=== PATIENT | male | born 1965 | race Caucasian/White ===

== ENCOUNTER 2024-11-18 23:44 | Inpatient (IN) | payer MEDICAID, SELFPAY ==
[2024-11-18 23:45] VITALS: BMI 25.1
[2024-11-18 23:57] VITALS: BP 122/81; PULSE 77; RESP 18; TEMP 37.3; O2SAT 99
[2024-11-19] VITALS (9 sets, daily range): BP systolic 114–137; BP diastolic 75–90; PULSE 61–79; RESP 13–19; TEMP 36.4–37.1; O2SAT 94–99
--- NOTE | 2024-11-19 00:08 | PD.EDRME ---
Rapid Medical Screening Exam RME Arrival date/time: 11/18/24 23:44 59M with history of cirrhosis and hypothryoidism presents to ED with gen ab pain and some bloody emesis. Patient states this feels more like a gastritis flare than esophageal bleed/pain. Chief Complaint: Abdominal Pain Time Seen by Provider: 11/19/24 01:17 Vital signs: Vital Signs Temperature 99.1 F 11/18/24 23:57 Pulse Rate 77 11/18/24 23:57 Respiratory Rate 18 11/18/24 23:57 Blood Pressure 122/81 11/18/24 23:57 Pulse Oximetry (%) 99 11/18/24 23:57 Oxygen Delivery Method Room Air 11/18/24 23:57
[2024-11-19 01:22] LABS: Basophils % (Auto) 0 % (0-2.5); Eosinophils # (Auto) 0.1 Thou/mm3 (0.0-0.5); Eosinophils % (Auto) 1 % (0-10); Hematocrit 34.7 % (41.0-53.0); Hemoglobin 11.3 g/dL (13.5-16.0); Immature Granulocytes % (Auto) 0 % (0-0); Immature Granulocytes Auto 0.01 Thou/mm3 (0.00-0.00); Lymphocytes # (Auto) 0.5 Thou/mm3 (1.0-4.8); Lymphocytes % (Auto) 12 % (10-50); Mean Corpuscular HGB Conc 32.6 g/dl (31.0-37.0); Mean Corpuscular Hemoglobin 26.2 pg (25.0-35.0); Mean Corpuscular Volume 81 fL (80-100); Monocytes # (Auto) 0.4 Thou/mm3 (0.0-0.8); Monocytes % (Auto) 8 % (0-12); Neutrophils # (Auto) 3.4 Thou/mm3 (1.8-7.7); Neutrophils % (Auto) 78 % (37-80); Nucleated Red Blood Cell % 0 /100 WBC (0); Platelet Count 85 Thou/mm3 (140-440); RDW Standard Deviation 42.6 fL (35.1-43.9); Red Blood Count 4.31 Miln/mm3 (4.50-5.90); White Blood Count 4.4 Thou/mm3 (3.8-10.6)
[2024-11-19] MEDS: PANTOPRAZOLE INJ 40 MG VIAL 80 MG IVP (01:22)
[2024-11-19] MEDS: MORPHINE SULF INJ 10 MG/ML VIAL 5 MG IVP (01:23)
[2024-11-19] MEDS: ONDANSETRON INJ 2 MG/ML INJ 2 ML 4 MG IV ×3 (01:23→16:27)
[2024-11-19 01:35] LABS: Lactate (Lactic Acid) 1.3 mMol/L (0.4-2.0)
[2024-11-19 01:40] LABS: INR 1.3 (0.9-1.3); Partial Thromboplastin Time 31.3 Seconds (22.0-36.0); Prothrombin Time 13.5 Seconds (9.0-12.2)
[2024-11-19 01:47] LABS: Alanine Aminotransferase < 7 U/L (10-49); Albumin, Serum 4.1 gm/dL (3.4-4.8); Albumin/Globulin Ratio 1.1 (1.2-2.2); Alkaline Phosphatase 80 U/L (46-116); Anion Gap 6 (7-16); Aspartate Amino Transferase 11 U/L (0-34); BUN/Creatinine Ratio 25 Ratio (12-20); Bilirubin,Total 1.7 mg/dL (0.3-1.2); Blood Urea Nitrogen 25 mg/dL (9-23); Calcium 9.2 mg/dL (8.3-10.6); Calcium (Corrected) 9.2 mg/dL (8.5-10.1); Chloride 104 mMol/L (98-107); Estimated Creatinine Clearance 77.6 mL/min (>60); Globulin 3.6 gm/dL (2.3-3.5); Glucose 109 mg/dL (74-106); Lipase 35 U/L (12-53); Osmolality,Calculated 279 (275-295); Potassium 4.2 mMol/L (3.4-5.1); Sodium 137 mMol/L (136-145); Total Protein 7.7 gm/dL (5.7-8.2); eGFR > 60 See Note
--- NOTE | 2024-11-19 04:02 | PC.NURSE ---
Deacon Mullins contacted for prayer visit per family request
--- NOTE | 2024-11-19 05:40 | EDNOTE_ITS ---
ED Abdominal Pain RME/HPI General Chief Complaint: Abdominal Pain Stated complaint: ABDOMINAL PAIN, VOMITED BLOOD Time seen by provider: 11/19/24 01:17 Arrival date/time: 11/18/24 23:44 Limitations: no limitations RME / HPI RME / HPI narrative: 11/18/24 23:44 59M with history of cirrhosis and hypothryoidism presents to ED with gen ab pain and some bloody emesis. Patient states this feels more like a gastritis flare than esophageal bleed/pain. ------- Dr. 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 Patient states he had an episode of vomiting with some blood in it. He denies any dizziness, lightheadedness, rectal bleeding, fever, chills or any other associated symptoms. PMHX: 1. Acute calculus cholecystitis-s/p cholecystostomy tube 2. Choledocholithiasis 3. Intractable Abdominal Pain 4. Cirrhosis 5.Thrombocytopenia/Leukopenia 7. Hypoalbuminemia- Continue high protein diet and Ensure supplements 8. Hypothyroidism -Continue home levothyroxine 9. Hx of Asthma-Continue home albuterol as needed Related Data Home Medications ?Medication ?Instructions ?Recorded ?Confirmed albuterol sulfate 90 mcg/actuation 2 puff inhalation Q6H PRN 09/02/22 09/02/22 aerosol inhaler Shortness Of Breath Or Wheezing gabapentin 400 mg capsule 400 mg PO Q8H 09/02/22 09/02/22 levothyroxine 150 mcg tablet 150 mcg PO QDAY 09/02/22 09/02/22 lidocaine 5 % topical patch See Rx Instructions .Route .COMPLEX 09/02/22 09/02/22 nystatin 100,000 unit/gram topical See Rx Instructions .Route .COMPLEX 09/02/22 09/02/22 cream oxycodone 10 mg tablet 10 mg PO BID PRN Pain 09/02/22 09/02/22 tizanidine 4 mg tablet 4 - 8 mg PO QPM 09/02/22 09/02/22 Previous Rx's ?Medication ?Instructions ?Recorded naloxone 4 mg/actuation nasal 4 mg intranasal Q3M PRN opioid 09/15/22 spray (Narcan) overdose #2 ea clindamycin HCl 300 mg capsule 300 mg PO QID #40 caps 04/18/23 meloxicam 15 mg tablet 15 mg PO QDAY PRN pain (scale 04/24/24 score 4-6) #7 tabs Allergies Allergy/AdvReac Type Severity Reaction Status Date / Time codeine AdvReac Mild NAUSEA/VOMI Verified 04/23/24 12:50 TING Review of Systems Review of Systems Systems Reviewed: All systems reviewed, normal except as documented Past Medical History Past Medical History NEUROLOGIC: Negative Neurological Disorders or Seizures CARDIAC: Negative Cardiac Disorders, Myocardial Infarction, Hypercholesterolemia, Congestive Heart Failure, Hypertension or Hypotension RESPIRATORY: Positive Asthma; Negative Chronic Obstructive Pulmonary Disease (COPD) GASTROINTESTINAL: Positive Cirrhosis GENITOURINARY: Negative Renal Disease ENDOCRINE: Positive Endocrine Disorders and Hypothyroidism; Negative Diabetes Mellitus Type 1 or Diabetes Mellitus Type 2 HEMATOLOGIC: Negative Sickle Cell Disease OTHER HISTORY: Negative Falls, Blood Transfusions, Anesthesia Reactions or Cancer Surgical History SURGICAL: Positive Abdominal Surgery Social History SMOKING STATUS: Current every day smoker SECOND HAND EXPOSURE: No (smoking for couple of years- Quit 5 days ago) ED Exam General Limitations: Present no limitations General appearance: Present alert and other (appears mildly uncomfortable) Head Head exam: Present atraumatic Eye Eye exam: Present normal appearance, PERRL and EOMI ENT ENT exam: Present normal exam, normal oropharynx and mucous membranes dry Neck Neck exam: Present normal inspection, full ROM and trachea midline Chest Chest inspection: Present normal inspection and symmetric chest wall rise Respiratory Respiratory exam: Present normal lung sounds bilaterally Cardiovascular Cardiovascular exam: Present regular rate, normal rhythm and normal heart sounds Abdominal Exam Abdominal exam: Present soft, normal bowel sounds, hernia (right umbilical, reducible) and scar (right abdominal, well-healed, no surrounding erythema or underlying discoloration); Absent tenderness Extremities Exam Extremities exam: Present normal inspection and full ROM Back Exam Back exam: Present normal inspection and full ROM Neurological Exam Neurological exam: Present alert, oriented X3 and CN II-XII intact Psychiatric Psychiatric exam: Present normal affect and normal mood Skin Skin exam: Present warm, dry, intact and normal color; Absent other (jaundice) Course Quality Measures none Orders Category Date Time Status CT Screening NOW Care 11/19/24 06:06 Active Insert IV NOW Care 11/19/24 00:[address] abdomen pelvis w con Stat Exams 11/19/24 06:06 Ordered CBC Stat Lab 11/19/24 00:44 Completed CMP [Comprehensive Metabolic Panel] Stat Lab 11/19/24 00:44 Completed INR [Prothrombin Time with INR] Stat Lab 11/19/24 00:44 Completed Lactic Acid [Lactate (Lactic Acid)] Stat Lab 11/19/24 01:29 Completed Lipase Stat Lab 11/19/24 00:44 Completed PTT [Partial Thromboplastin Time] Stat Lab 11/19/24 00:44 Completed Morphine Inj Med 11/19/24 05:45 Discontinued 4 mg IVP X1 ONE Morphine Inj Med 11/19/24 00:07 Discontinued 5 mg IVP X1 ONE Ondansetron Inj [Zofran Inj] Med 11/19/24 00:07 Discontinued 4 mg IV X1 ONE Pantoprazole Inj [Protonix Inj] Med 11/19/24 00:07 Discontinued 80 mg IVP X1 ONE Vital Signs Vital signs: Vital Signs Temperature 99.1 F 11/18/24 23:57 Pulse Rate 77 11/18/24 23:57 Respiratory Rate 18 11/18/24 23:57 Blood Pressure 122/81 11/18/24 23:57 Pulse Oximetry (%) 99 11/18/24 23:57 Oxygen Delivery Method Room Air 11/18/24 23:57 Pulse ox is 99% on room air, which is normal according to my interpretation. Abdominal Pain MDM MDM Narrative MDM Narrative:: Lipase, Amylase, and CT added. Patient data External records reviewed:: [facility] previous records (Per chart review, patient was seen here on 09/23/24 for similar symptoms and had gallstones; ERCP was not performed due to the high cervical risk.) Clinical information provided by:: patient Social determinants that could affect healthcare access:: alcohol use (history of) Patient has the following chronic illnesses:: cirrhosis s/p TIPS procedure, hypothyroidism, asthma, chronic back pain How is presenting disease/condition affected by chronic disease/condition?: exacerbated by Evaluation data The following diagnostics were reviewed and interpreted by me:: lab results Lab and/or radiology exams considered but not ordered:: none Interpretation Summary: CBC is normal, Lactic Acid is normal, Total Bilirubin is elevated at 1.7, Lipase is normal, according to my interpretation. Medications / Prescriptions Medications or Prescriptions considered but not ordered:: none Medication administrations:: Medication Administration History Discontinued Medications Morphine Sulfate (Morphine Sulf Inj 10 Mg/Ml Vial) 5 mg IVP X1 ONE Stop: 11/19/24 00:08 Last Admin: 11/19/24 01:23 Dose: 5 mg Documented By: LANI Morphine Sulfate (Morphine Sulf Inj 10 Mg/Ml Vial) 4 mg IVP X1 ONE Stop: 11/19/24 05:46 Last Admin: 11/19/24 06:01 Dose: 4 mg Documented By: LANI Ondansetron HCl (Ondansetron Inj 2 Mg/Ml Inj 2 Ml) 4 mg IV X1 ONE; Protocol Stop: 11/19/24 00:08 Last Admin: 11/19/24 01:23 Dose: 4 mg Documented By: LANI Pantoprazole Sodium (Pantoprazole Inj 40 Mg Vial) 80 mg IVP X1 ONE Stop: 11/19/24 00:08 Last Admin: 11/19/24 01:22 Dose: 80 mg Documented By: LANI see below Consultations Consultation(s) initiated? (list below): No Diagnosis Differential diagnosis abdominal pain: pancreatitis and other (surgical adhesions, worsening cirrhosis, acute on chronic low back pain, NSTEMI, CBD stone) Most likely diagnosis given after review of the tests above:: final dx pending at signout. Admission Indicated Admission indicated?: not indicated Admission Request Was there a request for admission?: No Disposition Plan Disposition Plan: other (specify) (Signed out to the next oncoming provider at [address] Discharge Plan Plan Disposition Comment: stale at signout Prescriptions/Referrals Prescriptions/Med Rec: No Action tizanidine 4 mg tablet 4 - 8 mg PO QPM Patient Comments: TAKE 1 TO 2 TABLETS BY MOUTH EVERY EVENING AT BED TIME gabapentin 400 mg capsule 400 mg PO Q8H Patient Comments: TAKE ONE CAPSULE BY MOUTH EVERY 8 HOURS nystatin 100,000 unit/gram cream See Rx Instructions .ROUTE .COMPLEX Patient Comments: APPLY topically THREE TIMES DAILY Rx Instructions: APPLY TOPICALLY THREE TIMES A DAY lidocaine 5 % adhesive patch,medicated See Rx Instructions .ROUTE .COMPLEX Patient Comments: APPLY ONE PATCH FOR 12 hours AND 12 hours off Rx Instructions: APPLY 1 PATCH FOR 12 HOURS AND 12 HOURS OFF levothyroxine 150 mcg tablet 150 mcg PO QDAY Patient Comments: TAKE ONE TABLET BY MOUTH EVERY DAY IN THE MORNING FOR THYROID albuterol sulfate 90 mcg/actuation HFA aerosol inhaler 2 puff INHALATION Q6H PRN (Reason: Shortness Of Breath Or Wheezing) Patient Comments: INHALE TWO PUFFS BY MOUTH EVERY 6 HOURS NEEDED oxycodone 10 mg tablet 10 mg PO BID PRN (Reason: Pain) Patient Comments: TAKE ONE TABLET BY MOUTH TWICE DAILY NEEDED FOR PAIN naloxone [Narcan] 4 mg/actuation spray,non-aerosol 4 mg intranasal Q3M PRN (Reason: opioid overdose) Qty: 2 0RF Rx Instructions: spray 1 dose into ONE nostril; alternate nostrils w each dose clindamycin HCl 300 mg capsule 300 mg PO QID Qty: 40 0RF meloxicam 15 mg tablet 15 mg PO QDAY PRN (Reason: pain (scale score 4-6)) Qty: 7 0RF Referrals: Justin Martin MD [Primary Care Provider] - In 1 week Problem List Clinical Impression: Abdominal pain Patient/Caregiver Discharge Instructions Print Language: Mosotho
[2024-11-19] MEDS: MORPHINE SULF INJ 10 MG/ML VIAL 4 MG IVP ×4 (06:01→20:37)
--- NOTE | 2024-11-19 06:06 | XR_ITS ---
Examination: CT abdomen with intravenous contrast CT pelvis with intravenous contrast 2-D coronal reconstructions 2-D sagittal reconstructions Date and time of exam:November 19, 2024 0645 hrs. Comparison September 02, 2022 Indications: Diagnosis cirrhosis with vomiting abdominal pain beginning last night, history gallbladder disease. CTDI: vol (mGy) 7.69 DLP: (mGycm) 126 Technique: Multiple axial sections of the abdomen and pelvis have been obtained. 64 slice high-resolution scanner used. 3 mm axial sections have been obtained, post intravenous injection 60 cc [id number] 2-D sagittal, coronal reconstructions obtained. Low dose protocols were performed. One or more of the following dose reduction techniques were used; automated exposure control, adjustment of the mA and/or KV according to patient size, use of iterative reconstruction technique. Findings: Cirrhosis, no focal liver lesions Portacaval shunt Marked splenomegaly with portosystemic collateral vessels medial to the spleen marked mucosal thickening involving the stomach and duodenum with air droplet axial image 61 which may represent a penetrating ulcer No pancreatic edema No hydronephrosis Aorta normal size No bowel obstruction Bladder intact Mild prostatomegaly Moderate osteopenia Impression: Cirrhosis Marked splenomegaly Diffuse gastritis pattern Severe active peptic disease of the duodenum with probable duodenal penetrating ulcer in no
--- NOTE | 2024-11-19 06:42 | PC.NURSE ---
PATIENT TO CT
--- NOTE | 2024-11-19 11:44 | EDNOTE_ITS ---
Emergency Room Addendum Addendum Narrative: The patient was signed out to me from Dr. Lee at 6:[address] abdomen and pelvic. Please see her note. The patient is tender in the right upper quadrant and vaguely tender throughout his abdomen. He does have a nonincarcerated soft incisional hernia in the right upper quadrant. CBC showing a WBC count of 4.4 but he has had history of leukopenia. BUN of 25 may be consistent with dehydration. Lactic acid is negative. Total bilirubin of 1.7 not too far away from the previous total bilirubin on record. Pro time 13.5 may be consistent with liver cirrhosis. Lactic acid is negative. On further questioning the patient admits to having vomited some black and red this morning. [facility] [address] [place] [address] [place] [facility] Report Signed Patient: ARBEN SMITH Record#: [id number] Birthdate: 1965 Age/Sex: 59 / M Location: [facility] Attending Dr: Ordering Physician: Cassandra Lee MD Date of Service: 11/19/24 Procedure(s): CT abdomen pelvis w con Accession Number(s): [id number] cc: Justin Martin MD; Arturo Shoemaker MD; Cassandra Lee MD~ Examination: CT abdomen with intravenous contrast CT pelvis with intravenous contrast 2-D coronal reconstructions 2-D sagittal reconstructions Date and time of exam:November 19, 2024 0645 hrs. Comparison September 02, 2022 Indications: Diagnosis cirrhosis with vomiting abdominal pain beginning last night, history gallbladder disease. CTDI: vol (mGy) 7.69 DLP: (mGycm) 126 Technique: Multiple axial sections of the abdomen and pelvis have been obtained. 64 slice high-resolution scanner used. 3 mm axial sections have been obtained, post intravenous injection 60 cc [id number] 2-D sagittal, coronal reconstructions obtained. Low dose protocols were performed. One or more of the following dose reduction techniques were used; automated exposure control, adjustment of the mA and/or KV according to patient size, use of iterative reconstruction technique. Findings: Cirrhosis, no focal liver lesions Portacaval shunt Marked splenomegaly with portosystemic collateral vessels medial to the spleen marked mucosal thickening involving the stomach and duodenum with air droplet axial image 61 which may represent a penetrating ulcer No pancreatic edema No hydronephrosis Aorta normal size No bowel obstruction Bladder intact Mild prostatomegaly Moderate osteopenia Impression: Cirrhosis Marked splenomegaly Diffuse gastritis pattern Severe active peptic disease of the duodenum with probable duodenal penetrating ulcer in no Dictated By: Arturo Shoemaker MD Signed By: <Electronically signed by Arturo Shoemaker MD in [place]> 11/19/24720 DD/ 5 TD/TT: 11/19/24715 [employer] 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 on IV fluid and I also gave the patient an injection of Zosyn IV. Also Protonix IV. For the pain he received morphine and Zofran. I have not seen him vomited here. 11:35 AM, after the CT report made available to me, I spoke to and discussed with Dr. Kamara, surgeon on-call. He said he would come to see the patient evaluate the patient in the emergency department. 12:15 PM, Dr. Kamara was here and has seen the patient. He said that there is no surgery planned. He does recommend patient to be admitted and he recommend an in-house Gastrografin upper GI series 12:45 PM, I spoke to and discussed with , resident of Dr. [facility]. He will present the case to Dr. Patricio and get the patient admitted Diagnosis: Diffuse gastritis Dehydration Cirrhosis of the liver Hematemesis Critical care time is approximately 35 minutes excluding any procedure. The high probability of sudden, clinically significant deterioration in the patient?s condition required the highest level of my preparedness to intervene urgently. The services I provided to this patient were to treat and/or prevent clinically significant deterioration. Services included the following: chart data review, reviewing nursing notes and/or old charts, documentation time, furniture sales consultant collaboration regarding findings and treatment options, medication orders and management, direct patient care, vital sign assessments and ordering, int erpreting and reviewing diagnostic studies and lab tests. Aggregate critical care time includes only time during which I was engaged in work directly related to the patient?s care, as described above, whether at bedside or elsewhere in the Emergency Department. It did not include time spent performing other reported procedures or the services of residents, students, nurses or physician assistants. Diagnosis: Abdominal pain Hematemesis Diffuse gastritis rule out penetrating ulcer Cirrhosis of the liver Condition: Stable for admit
[2024-11-19] MEDS: SODIUM CHLORIDE 0.9% 1000 ML 1,000 ML 125 ML IV (12:14)
[2024-11-19] MEDS: PIPER/TAZO 3.375 GM 3.375 GM/50 ML BAG IV ×2 (12:19→21:05)
[2024-11-19] MEDS: PANTOPRAZOLE INJ 40 MG VIAL IVP ×2 (12:19→20:20)
--- NOTE | 2024-11-19 12:43 | PD.SURCONS ---
HPI Consult details Consult date: 11/19/24 Reason for consultation narrative: Patient was seen on consultation at the request of ER physician for a possible peptic ulcer with air bubbles in the duodenal region History of present illness: Patient gives history of abdominal pain for 2 to 3 weeks in the epigastric region but it became worse last night. He came to the emergency room and was found to have abnormal CT. He also had a vomiting and there was some blood. He underwent cholecystectomy 8 months ago in [place] but has developed an incisional hernia over the abdomen. He is being followed by [place] [facility] over the phone. He has a documented cirrhosis of the liver with mild ascites and hypersplenism. I have seen this patient 2 years ago when he was here with cholecystitis and cholelithiasis. Patient also has had a TIPS because of the portal hypertension. He was once candidate for liver transplant but not anymore according to the patient. Patient has noticed some blood in the vomiting. He was diagnosed with gastric or duodenal ulcer in [place] according to the patient. Past Medical History Past Medical History NEUROLOGIC: Negative Neurological Disorders or Seizures CARDIAC: Negative Cardiac Disorders, Myocardial Infarction, Hypercholesterolemia, Congestive Heart Failure, Hypertension or Hypotension RESPIRATORY: Negative Chronic Obstructive Pulmonary Disease (COPD) or Asthma GASTROINTESTINAL: Positive Cirrhosis GENITOURINARY: Negative Renal Disease ENDOCRINE: Positive Endocrine Disorders and Hypothyroidism; Negative Diabetes Mellitus Type 1 or Diabetes Mellitus Type 2 HEMATOLOGIC: Negative Sickle Cell Disease OTHER HISTORY: Negative Falls, Blood Transfusions, Anesthesia Reactions or Cancer Surgical History SURGICAL: Positive Abdominal Surgery Social History SMOKING STATUS: Current every day smoker SECOND HAND EXPOSURE: No (smoking for couple of years- Quit 5 days ago) Meds Home Medications and Allergies Home Medications ?Medication ?Instructions ?Recorded ?Confirmed ?Type albuterol sulfate 90 mcg/actuation 2 puff inhalation Q6H PRN 09/02/22 09/02/22 History aerosol inhaler Shortness Of Breath Or Wheezing gabapentin 400 mg capsule 400 mg PO Q8H 09/02/22 09/02/22 History levothyroxine 150 mcg tablet 150 mcg PO QDAY 09/02/22 09/02/22 History lidocaine 5 % topical patch See Rx Instructions .Route .COMPLEX 09/02/22 09/02/22 History nystatin 100,000 unit/gram topical See Rx Instructions .Route .COMPLEX 09/02/22 09/02/22 History cream oxycodone 10 mg tablet 10 mg PO BID PRN Pain 09/02/22 09/02/22 History tizanidine 4 mg tablet 4 - 8 mg PO QPM 09/02/22 09/02/22 History Allergies Allergy/AdvReac Type Severity Reaction Status Date / Time codeine AdvReac Mild NAUSEA/VOMI Verified 04/23/24 12:50 TING Exam Vital Signs Temp Pulse Resp BP Pulse Ox O2 Del Method 98.2 F 67 16 137/87 H 95 Room Air 11/19/24 12:16 11/19/24 12:16 11/19/24 12:16 11/19/24 12:16 11/19/24 12:16 11/19/24 12:16 Narrative Exam Physical examination revealed a 59-year-old male who is chronically ill with normal vital signs Routine Abdominal Exam Comments: Abdominal examination showed some tenderness in the epigastric region but no signs of peritonitis. There is no rigidity or guarding to suggest perforation. Bowel sounds are present and hypoactive. Patient has a subcostal incision with the hernia over the upper portion which is reducible. This hernia is not causing any pain or discomfort. Results Results: Laboratory Laboratory Narrative: Patient's laboratory workup showed leukocyte around 4.4 thousand. His platelets are around 85,000 which is higher for him than normal Results: Imaging Imaging narrative: CT scan of the abdomen showed no free air but some stranding around the duodenum and possible gastritis Assessment & Plan Additional Assessment Additional comments: Impression: No evidence of acute peritonitis to suspect any perforation Cirrhosis of the liver with status post TIPS Plan Plan: I will order an upper GI with Gastrografin today. If it is normal we will ask the gaming associate to see whether he would benefit from endoscopy because of the recent upper GI bleeding.
--- NOTE | 2024-11-19 13:17 | PD.IMCONS ---
HPI Data of Consult Primary Care Provider: Justin Martin MD Consult Narrative Reason for consult: Pain abdomen History of present illness: 59 years old male who presented to the hospital with pain abdomen Does have history of cirrhotic liver disease He did have a CT scan of the abdomen pelvis done with contrast showed severe gastritis and duodenitis Micro droplets of air in the duodenum suggestive of a penetrating ulcer Abdominal examination suggestive of benign abdomen with no evidence of acute abdomen cc:: cc: Review of Systems Review of Systems Systems Reviewed: All systems reviewed, normal except as documented Past Medical History Surgical History OTHER SURGICAL HX: As in the history of present illness Meds Home Medications and Allergies Home Medications ?Medication ?Instructions ?Recorded ?Confirmed ?Type albuterol sulfate 90 mcg/actuation 2 puff inhalation Q6H PRN 09/02/22 09/02/22 History aerosol inhaler Shortness Of Breath Or Wheezing gabapentin 400 mg capsule 400 mg PO Q8H 09/02/22 09/02/22 History levothyroxine 150 mcg tablet 150 mcg PO QDAY 09/02/22 09/02/22 History lidocaine 5 % topical patch See Rx Instructions .Route .COMPLEX 09/02/22 09/02/22 History nystatin 100,000 unit/gram topical See Rx Instructions .Route .COMPLEX 09/02/22 09/02/22 History cream oxycodone 10 mg tablet 10 mg PO BID PRN Pain 09/02/22 09/02/22 History tizanidine 4 mg tablet 4 - 8 mg PO QPM 09/02/22 09/02/22 History Allergies Allergy/AdvReac Type Severity Reaction Status Date / Time codeine AdvReac Mild NAUSEA/VOMI Verified 04/23/24 12:50 TING Exam Vital Signs Temp Pulse Resp BP Pulse Ox O2 Del Method 98.2 F 67 16 137/87 H 95 Room Air 11/19/24 12:16 11/19/24 12:16 11/19/24 12:16 11/19/24 12:16 11/19/24 12:16 11/19/24 12:16 Constitutional Comments: Alert oriented cooperative Routine Respiratory Exam Comments: Normal to auscultation Routine Abdominal Exam Comments: Ventral hernia right upper quadrant Results Labs 11/19/24 00:44 11/19/24 00:44 Labs: Short CBC 11/19/24 Range/Units 00:44 WBC 4.4 (3.8-10.6) Thou/mm3 Hgb 11.3 L (13.5-16.0) g/dL Hct 34.7 L (41.0-53.0) % Plt Count 85 L (140-440) Thou/mm3 BMP 11/19/24 00:44 Sodium 137 Potassium 4.2 Chloride 104 Carbon Dioxide 27.0 BUN 25 H Creatinine 1.0 Glucose 109 H Calcium 9.2 Liver Function 11/19/24 Range/Units 00:44 Total Bilirubin 1.7 H (0.3-1.2) mg/dL AST 11 (0-34) U/L ALT < 7 L (10-49) U/L Alkaline Phosphatase 80 (46-116) U/L Albumin 4.1 (3.4-4.8) gm/dL Assessment and Plan Additional Assessment & Plan Additional Plan: # Most likely penetrating ulcer duodenum with possibly sealed off microperforation But no evidence of acute abdomen on examination # 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 IV Protonix Serial CBC If the Gastrografin upper GI series is negative and shows no microperforation will perform upper endoscopy for further evaluation Thank you once . For the opportunity to participate in the care of this patient
--- NOTE | 2024-11-19 14:22 | PD.RESHP ---
Documentation for date of: 11/19/24 [facility] History of Present Illness History of present illness: 59 y/o male with PMHx of cirrhosis (status post TIPS with stent placement 20 years ago at [facility]), chronic hep C, hypothyroidism, peptic ulcer disease, who comes to [facility] on 11/18/2024 for an evaluation of diffuse abdominal pain, onset yesterday, rated 10 out of 10, not relieved by anything, never experienced this before, associated with 1 episode of hematemesis described as bright red in color. Patient reports that he started to feel increasing abdominal pain that has not improved upon sitting in different positions. Denies any changes to his diet usually eats soup and sandwiches, denies being sick recently or any recent travel. Says that he had his gallbladder removed about 8 months ago at [facility] and also had a drain during the time. Denies any CP, SOB, diarrhea, constipation, headache, numbness, tingling, syncope, fatigue, weakness ED Course: Pt presented to the ED afebrile, HR of 77, RR of 18, a blood pressure 122/81, satting at 99% room air. He was worked up and was found to have a sodium 137, potassium 4.2, 104 for chloride, BUN/creatinine of 25.1 respectively, glucose of 109, WBC of 4.4, hemoglobin 11.3, platelets of 85, PT and INR of 13.5 and 1.3 respectively, T. bili 5.7, lipase 35, AST and ALT 11 and 7 respectively, lactate 1.3 and troponin negative x1. CT abdomen pelvis shows active peptic ulcer disease of the duodenum with probable duodenal penetrating ulcer. Patient was given 120 mg of Protonix in the ER, Zofran, Zosyn x 1, 30 mg of morphine, and was started on normal saline 125 cc an hour. General surgery was consulted, with recommendations to pursue upper GI series as he believes the patient does not need surgery at this time. Medicine was consulted and patient to the floors PMHx: As above Surgeries: TIPS 20 years ago, cholecystectomy 8 months ago. All surgeries done at [facility] Meds: Trazodone 50, pantoprazole delayed release, Synthroid 175, oxycodone Allergies: No known allergies Family history: History of heart disease in father Social history: Lives in [place], single lives in a trailer, has 3 kids, has never drank before, had done some recreational marijuana when he was younger but no hard drugs, smokes a pack of cigarettes every 3 days Review of Systems Review of Systems Narrative Review of Systems: Constitutional: No fever, chills, fatigue, weakness, weight loss HEENT: No eye pain, vision loss, ear pain, hearing loss, dysphagia, Cardiovascular: No chest pain, palpitations, edema, pain with walking Respiratory: No cough, shortness of breath, wheezing GI: +hematemesis, + abd pain, no diarrhea, constipation, blood in stool, loss of appetite, heartburn Extremities: No presence of pitting edema MSK: No back pain, joint pain, joint swelling Neuro: No dizziness, numbness, weakness, headaches, seizures, tremors Psych: No anxiety, depression Exam Vital Signs Temp Pulse Resp BP Pulse Ox O2 Del Method 98.2 F 67 16 137/87 H 95 Room Air 11/19/24 12:16 11/19/24 12:16 11/19/24 12:16 11/19/24 12:16 11/19/24 12:16 11/19/24 12:16 Narrative Exam General: AAOx3, in mild distress, older male with some tattoos and wearing a hat HEENT: Dry mucous membranes, conjunctiva clear, EOMI, PERRLA, Cardiovascular: S1, S2, radial pulses +2 bilat, RRR Pulmonary: CTAB bilat no cough, no wheezing GI: Abdomen tender to palpitation in both upper and lower quadrants bilat, no rebound tenderness, no guarding, bowel sounds present, incisional reducible hernia present in RUQ Extremities: No presence of trace or pitting edema in lower extremities bilaterally, dorsalis pedis pulses +2 bilaterally Neuro: AAOx3, no focal motor or sensory deficits in the UE or LE bilat Psych: Good judgement, thought and behavior. Cooperative Results: Labs 11/20/24 04:28 11/20/24 04:28 Labs: Short CBC 11/19/24 Range/Units 00:44 WBC 4.4 (3.8-10.6) Thou/mm3 Hgb 11.3 L (13.5-16.0) g/dL Hct 34.7 L (41.0-53.0) % Plt Count 85 L (140-440) Thou/mm3 BMP 11/19/24 00:44 Sodium 137 Potassium 4.2 Chloride 104 Carbon Dioxide 27.0 BUN 25 H Creatinine 1.0 Glucose 109 H Calcium 9.2 Liver Function 11/19/24 Range/Units 00:44 Total Bilirubin 1.7 H (0.3-1.2) mg/dL AST 11 (0-34) U/L ALT < 7 L (10-49) U/L Alkaline Phosphatase 80 (46-116) U/L Albumin 4.1 (3.4-4.8) gm/dL Quality Measures Quality Measures none Medications Home Medications and Allergies Home Medications ?Medication ?Instructions ?Recorded ?Confirmed ?Type albuterol sulfate 90 mcg/actuation 2 puff inhalation Q6H PRN 09/02/22 09/02/22 History aerosol inhaler Shortness Of Breath Or Wheezing gabapentin 400 mg capsule 400 mg PO Q8H 09/02/22 09/02/22 History levothyroxine 150 mcg tablet 150 mcg PO QDAY 09/02/22 09/02/22 History lidocaine 5 % topical patch See Rx Instructions .Route .COMPLEX 09/02/22 09/02/22 History nystatin 100,000 unit/gram topical See Rx Instructions .Route .COMPLEX 09/02/22 09/02/22 History cream oxycodone 10 mg tablet 10 mg PO BID PRN Pain 09/02/22 09/02/22 History tizanidine 4 mg tablet 4 - 8 mg PO QPM 09/02/22 09/02/22 History Allergies Allergy/AdvReac Type Severity Reaction Status Date / Time codeine AdvReac Mild NAUSEA/VOMI Verified 04/23/24 12:50 TING Visit Medications Acetaminophen (Acetaminophen 325 Mg Tablet) 650 mg PO Q6H PRN PRN Reason: Fever >101.5 or pain 1-3 Stop: 12/19/24 14:11 Albuterol/Ipratropium (Albuterol/Ipratropium (Duoneb) Rt Renetta 3 Ml Nebu) 3 ml INH Q6HRRT RUDDY Stop: 12/19/24 18:59 Sodium Chloride (Ns) 1,000 mls @ 125 mls/hr IV .Q8H ONE Stop: 11/19/24 19:39 Last Admin: 11/19/24 12:14 Dose: 125 mls/hr Piperacillin/Tazobactam/Dextrose (Zosyn) 3.375 gm in 50 mls @ 100 mls/hr IV Q8HR RUDDY Stop: 11/26/24 14:20 Levothyroxine Sodium (Levothyroxine Sodium 125 Mcg Tablet) 175 mcg PO QDAY RUDDY Stop: 12/20/24 08:59 Magnesium Hydroxide (Milk Of Magnesia Susp 30 Ml Udc) 30 ml PO QDAY PRN; Protocol PRN Reason: CONSTIPATION Stop: 12/19/24 14:11 Morphine Sulfate (Morphine Sulf Inj 10 Mg/Ml Vial) 4 mg IVP Q4H PRN PRN Reason: Pain Scale 6-10 (Severe Stop: 11/24/24 14:11 Morphine Sulfate (Morphine Sulf Inj 10 Mg/Ml Vial) 4 mg IVP Q6H PRN PRN Reason: For breakthrough pain Stop: 11/24/24 14:16 Ondansetron HCl (Ondansetron Inj 2 Mg/Ml Inj 2 Ml) 4 mg IV Q6H PRN; Protocol PRN Reason: NAUSEA OR VOMITING Stop: 12/19/24 14:16 Pantoprazole Sodium (Pantoprazole Inj 40 Mg Vial) 40 mg IVP Q12HR RUDDY Stop: 12/19/24 20:59 Trazodone HCl (Trazodone Hcl 50 Mg Tablet) 50 mg PO HS RUDDY Stop: 12/19/24 20:59 Discontinued Medications Piperacillin/Tazobactam/Dextrose (Zosyn) 3.375 gm in 50 mls @ 100 mls/hr IV X1 ONE Stop: 11/19/24 12:10 Last Infusion: 11/19/24 14:04 Dose: Infused Morphine Sulfate (Morphine Sulf Inj 10 Mg/Ml Vial) 5 mg IVP X1 ONE Stop: 11/19/24 00:08 Last Admin: 11/19/24 01:23 Dose: 5 mg Morphine Sulfate (Morphine Sulf Inj 10 Mg/Ml Vial) 4 mg IVP X1 ONE Stop: 11/19/24 05:46 Last Admin: 11/19/24 06:01 Dose: 4 mg Morphine Sulfate (Morphine Sulf Inj 10 Mg/Ml Vial) 4 mg IVP X1 ONE Stop: 11/19/24 12:02 Last Admin: 11/19/24 12:14 Dose: 4 mg Ondansetron HCl (Ondansetron Inj 2 Mg/Ml Inj 2 Ml) 4 mg IV X1 ONE; Protocol Stop: 11/19/24 00:08 Last Admin: 11/19/24 01:23 Dose: 4 mg Ondansetron HCl (Ondansetron Inj 2 Mg/Ml Inj 2 Ml) 4 mg IV X1 ONE; Protocol Stop: 11/19/24 12:02 Last Admin: 11/19/24 12:15 Dose: 4 mg Pantoprazole Sodium (Pantoprazole Inj 40 Mg Vial) 80 mg IVP X1 ONE Stop: 11/19/24 00:08 Last Admin: 11/19/24 01:22 Dose: 80 mg Pantoprazole Sodium (Pantoprazole Inj 40 Mg Vial) 40 mg IVP X1 ONE Stop: 11/19/24 11:41 Last Admin: 11/19/24 12:19 Dose: 40 mg Assessment & Plan Plan Assessment Lucian is a 59 y/o male 59 y/o male with PMHx of cirrhosis (status post TIPS with stent placement 20 years ago at [facility]), chronic hep C, hypothyroidism, peptic ulcer disease, who comes to [facility] on 11/18/2024 for an evaluation of duodenal ulcer and GI bleed. #Penetrating duodenal ulcer #History of peptic ulcer disease Patient exhibiting pain with abdomen at this time, relieved with Protonix At this time, lower suspicion for acute abdomen Patient does have history of peptic ulcer disease, takes pantoprazole delayed release 40 at home Patient does avoid NSAIDs at home No previous EGD on file CT shows peptic ulcer disease and penetrating duodenal ulcer General Surgery, Dr. Fraser seen patient who wants to proceed with upper GI series Low suspicion for perforation at this time, but patient may need to be transferred to [facility] considering patient's GI history with TIPS if there is perforation GI also consulted, would like to further workup patient and would like to start with upper GI series to see patient will need Plan: ?General Surgery consulted, appreciate recs ? GI consulted, appreciate recs ? Pain control with morphine 4 mg every 4 hours, breakthrough pain morphine 4 mg every 6 hours ?N.p.o. ?Upper GI series ? Protonix 40 twice daily ? Normal saline 125 cc/hour #GI bleed #Hematemesis Patient had 1 episode of vomiting blood, described as bright red in color Not happened to patient before This could be related to patient's duodenal ulcer Patient does have history of TIPS Hemoglobin currently 11.3, baseline seems to be around 10 Will further workup regardless, however will need to first complete GI series for further investigation Plan: ?GI consulted, appreciate recs ?Continue with Zosyn ?Type and screen ?Transfusion protocol hemoglobin below 7 ?SCDs ?As above #History of cirrhosis #History of TIPS procedure #Hx of incisional hernia #History of hep C #Elevated PT #Thrombocytopenia #Neutropenia At this time, patient does not seem to be in decompensated liver disease However patient lab abnormalities are all likely secondary to cirrhosis No history of alcohol use per patient, however patient does have hep C could be the etiology of cirrhosis No known history of esophageal varices, will hold on octreotide at this time Plan: ? Treat as above ? Trend with CBC and CMP #History of hypothyroidism Plan: ? Resume home Synthroid 175 mcg #History of insomnia Plan: ? Resume home trazodone 50 mg #Health Maintenance Disposition: Telemetry DVT prophylaxis: SCDs GI prophylaxis: Protonix 40 twice daily Diet: N.p.o. CODE STATUS: Full Patient seen and care discussed with my senior resident, Dr. Rios , and my attending physician, Dr. Jay Eugene, PGY-1 Senior resident attestation: Patient evaluated and examined at the bedside, plan of care discussed with rest of the team including my attending physician, except as noted. Patient is a 59-year-old male with past medical history of cirrhosis status post TIPSS, hepatitis C?received treatment, hypothyroidism, peptic ulcer disease, history of cholecystectomy who came to [facility] for epigastric pain starting 1 day prior. Patient has history of chronic peptic ulcer disease and has epigastric pain also has ventral hernia, which is easily reducible. Patient had prior surgeries done at [facility]. #Penetrating duodenal ulcer ?CT abdomen pelvis read as penetrating duodenal ulcer, but no clear documentation of perforation, reviewed CT imaging, negative for pneumoperitoneum, general surgery Dr. Fraser was consulted, less impressed with physical exam findings, does not consider acute surgical abdomen or need for emergency surgery at this point. Recommending following up with upper GI Gastrografin study. ? Started IV Zosyn ? IV Protonix twice daily following loading dose ? Keep n.p.o., maintenance IV fluid #GI bleed/hematemesis ? Described 1 episode of hematemesis, less likely variceal bleed at this point, given patient has history of TIPS, but there is evidence of portal hypertension given splenomegaly even in the presence of TIPS. For now likely culprit for GI bleed is penetrating duodenal ulcer, will hold off on octreotide, pending GI recommendations. ? Monitor H&H, vitals, transfuse if hemoglobin less than 7 #Thrombocytopenia?in the setting of cirrhosis #Anemia?in the setting of GI bleed/cirrhosis Quresh PGY2 Attending Provider Attestation/Addendum I have examined the patient, reviewed labs and imaging findings, discussed the case with the resident(s), and reviewed entered orders. I agree with the plan of care as outlined in this note, with these additional summaries/recommendations: Patient is a 57-year-old male with past history of cirrhosis s/p TIPS procedure, Hepatitis C infection S/P antivirals many years ago, hypothyroidism, asthma, cholecystectomy, and cirrhosis who presented to [facility] emergency department on 11/19/2024 with complaint of severe abdominal pain and 1 episode of hematemesis. Patient will be admitted for upper GI bleed. Gastroenterology consulted. Start IV Protonix, octreotide gtt., n.p.o., IV fluids, and monitor hemoglobin and hematocrit. Hemoglobin currently 11.3 and we will monitor closely. Platelet count currently 85. Transfuse for hemoglobin less than 7. Given patient's severe abdominal pain in the emergency department CT abdomen and pelvis was obtained which showed severe active peptic disease of the duodenum with possible penetration through the duodenum although patient has no signs of peritonitis or guarding at this time. He does have tenderness to palpation throughout abdomen. General surgery was consulted and recommends upper Gastrografin series to rule out perforation. Continue pain management with IV morphine. Resume home oral medications when able. Patient updated on the plan and in agreement. Repeat hematology and chemistry panel in AM. Dr. Thompson
[2024-11-19] MEDS: OCTREOTIDE ACET INJ 1,000 MCG in SODIUM CHLORIDE 0.9% 100 ML 5.1 MCG IV (17:34)
[2024-11-19] MEDS: traZODone HCL 50 MG TABLET PO (20:20)
[2024-11-19] MEDS: ALBUTEROL/IPRATROPIUM (Duoneb) RT SOL 3 ML NEBU INH (20:44)
[2024-11-19] MEDS: MELATONIN 3 MG TABLET PO (22:55)
[2024-11-20] VITALS (12 sets, daily range): BP systolic 93–115; BP diastolic 65–80; PULSE 67–80; RESP 12–22; TEMP 36.2–36.8; O2SAT 91–99; BMI 25.1
[2024-11-20] MEDS: ALBUTEROL/IPRATROPIUM (Duoneb) RT SOL 3 ML NEBU INH ×3 (00:08→12:30)
[2024-11-20] MEDS: MORPHINE SULF INJ 10 MG/ML VIAL 4 MG IVP ×6 (01:00→21:37)
[2024-11-20] MEDS: LEVOTHYROXINE SODIUM 125 MCG, LEVOTHYROXINE SODIUM 50 MCG 175 MCG PO (05:02)
[2024-11-20] MEDS: PIPER/TAZO 3.375 GM 3.375 GM/50 ML BAG IV ×3 (05:03→22:17)
[2024-11-20 05:49] LABS: INR 1.2 (0.9-1.3); Partial Thromboplastin Time 31.3 Seconds (22.0-36.0)
[2024-11-20 06:20] LABS: Alanine Aminotransferase 7 U/L (10-49); Albumin, Serum 3.5 gm/dL (3.4-4.8); Albumin/Globulin Ratio 1.2 (1.2-2.2); Alkaline Phosphatase 73 U/L (46-116); Anion Gap 7 (7-16); Aspartate Amino Transferase 13 U/L (0-34); BUN/Creatinine Ratio 20 Ratio (12-20); Blood Urea Nitrogen 26 mg/dL (9-23); Calcium 8.6 mg/dL (8.3-10.6); Carbon Dioxide 24.8 mMol/L (20.0-31.0); Cardiac Risk Estimate 3.5 RATIO (4.0-6.7); Chloride 104 mMol/L (98-107); Cholesterol 107 mg/dL (132-200); Creatinine (Component) 1.3 mg/dL (0.6-1.3); Estimated Creatinine Clearance 59.7 mL/min (>60); Glucose 110 mg/dL (74-106); HDL Cholesterol 31 mg/dL (40-60); LDL Cholesterol,Calculated 61 mg/dL (0-130); Magnesium 1.9 mg/dL (1.6-2.6); Osmolality,Calculated 277 (275-295); Phosphorous 4.3 mg/dL (2.4-5.1); Potassium 4.4 mMol/L (3.4-5.1); Sodium 136 mMol/L (136-145); Total Protein 6.5 gm/dL (5.7-8.2); Triglycerides 77 mg/dL (30-150); eGFR > 60 See Note
[2024-11-20 06:48] LABS: Basophils % (Auto) 1 % (0-2.5); Eosinophils # (Auto) 0.1 Thou/mm3 (0.0-0.5); Eosinophils % (Auto) 4 % (0-10); Hematocrit 28.3 % (41.0-53.0); Hemoglobin 9.2 g/dL (13.5-16.0); Immature Granulocytes % (Auto) 1 % (0-0); Immature Granulocytes Auto 0.01 Thou/mm3 (0.00-0.00); Lymphocytes # (Auto) 0.4 Thou/mm3 (1.0-4.8); Lymphocytes % (Auto) 23 % (10-50); Mean Corpuscular HGB Conc 32.5 g/dl (31.0-37.0); Mean Corpuscular Hemoglobin 26.5 pg (25.0-35.0); Mean Corpuscular Volume 82 fL (80-100); Monocytes # (Auto) 0.2 Thou/mm3 (0.0-0.8); Monocytes % (Auto) 9 % (0-12); Neutrophils # (Auto) 1.2 Thou/mm3 (1.8-7.7); Neutrophils % (Auto) 64 % (37-80); Nucleated Red Blood Cell % 0 /100 WBC (0); RDW Standard Deviation 43.7 fL (35.1-43.9); Red Blood Count 3.47 Miln/mm3 (4.50-5.90)
[2024-11-20 07:09] LABS: White Blood Count 1.9 Thou/mm3 (3.8-10.6)
[2024-11-20 07:10] LABS: Platelet Count 73 Thou/mm3 (140-440)
--- NOTE | 2024-11-20 07:15 | PC.NURSE ---
Dr. Smith notified of critical lab value: WBC 1.7. No new orders received. Per Dr. Smith he will place new order for repeat CBC.
[2024-11-20 07:34] LABS: Glucose Estimated Average 100 mg/dL (80-131); Hemoglobin A1C 5.1 % Hgb (4.8-6.0)
--- NOTE | 2024-11-20 08:16 | XR_ITS ---
Examination: AP chest single view Technique one AP portable sitting chest single view Exam date and time: November 20, 2024 0843 hrs. Comparison September 02, 2022 Indications: Abdominal pain this week, shortness of breath Findings: Minimal prominence left ventricle Mild vascular congestion No lobar pneumonia or pulmonary edema Moderate osteopenia Impression: Mild vascular congestion
[2024-11-20 08:29] LABS: Slide Review Platelets confirmed
[2024-11-20] MEDS: PANTOPRAZOLE INJ 40 MG VIAL IVP ×2 (09:02→22:17)
[2024-11-20] MEDS: Magnesium Sulfate 2 GM Ivpb 2 GM/50 ML BAG IV (09:04)
[2024-11-20 10:46] LABS: Basophils % (Auto) 1 % (0-2.5); Eosinophils # (Auto) 0.1 Thou/mm3 (0.0-0.5); Eosinophils % (Auto) 5 % (0-10); Hematocrit 29.8 % (41.0-53.0); Hemoglobin 9.5 g/dL (13.5-16.0); Immature Granulocytes % (Auto) 1 % (0-0); Immature Granulocytes Auto 0.01 Thou/mm3 (0.00-0.00); Lymphocytes # (Auto) 0.3 Thou/mm3 (1.0-4.8); Lymphocytes % (Auto) 16 % (10-50); Mean Corpuscular HGB Conc 31.9 g/dl (31.0-37.0); Mean Corpuscular Hemoglobin 26.4 pg (25.0-35.0); Mean Corpuscular Volume 83 fL (80-100); Monocytes # (Auto) 0.2 Thou/mm3 (0.0-0.8); Monocytes % (Auto) 9 % (0-12); Neutrophils # (Auto) 1.4 Thou/mm3 (1.8-7.7); Neutrophils % (Auto) 70 % (37-80); Nucleated Red Blood Cell % 0 /100 WBC (0); RDW Standard Deviation 43.9 fL (35.1-43.9)
[2024-11-20 10:55] LABS: White Blood Count 1.9 Thou/mm3 (3.8-10.6)
[2024-11-20 10:56] LABS: Platelet Count 78 Thou/mm3 (140-440)
[2024-11-20 11:25] LABS: Slide Review Platelets confirmed
--- NOTE | 2024-11-20 12:41 | PD.RESPRO ---
Documentation for date of: 11/20/24 Subjective Subjective Interval history: Patient was seen today at the bedside found awake, alert, oriented x 3. No overnight events reported. Still complaining of epigastric pain but improved with pain medication. Vital signs stable at this time. Labs showed leukopenia, anemia and thrombocytopenia, ordered repeat CBC. Ordered upper GI series however will not be done till Thursday, ordered chest x-ray no sign of pneumoperitoneum found. Exam Vital Signs Temp Pulse Resp BP Pulse Ox O2 Del Method 97.1 F 71 19 101/66 96 Room Air 11/20/24 12:00 11/20/24 12:00 11/20/24 12:00 11/20/24 12:00 11/20/24 12:00 11/20/24 12:00 Narrative Exam Physical Exam GENERAL: NAD, AAOx3 HEENT: Moist mucosa. Eyes open, symmetrical, & clear CARDIO: Heart RRR, no obvious murmurs PULM: No noted coughing/dyspnea CTA B/L, no R/W/R GI: Abdomen soft, nondistended, tenderness to palpation in epigastric region. BSx4 SKIN/MSK/EXT: No wounds/rashes/edema/amputations, no pain on palpation. Pedal pulses present B/L NEURO: AAOx3, no focal neuro deficits, able to move all 4 extremities Objective Labs 11/20/24 10:05 11/20/24 04:28 Labs: Laboratory Results - last 24 hr 11/19/24 11/20/24 11/20/24 14:30 04:28 10:05 WBC 1.9 L D 1.9 L RBC 3.47 L 3.60 L Hgb 9.2 L D 9.5 L Hct 28.3 L 29.8 L MCV 82 83 MCH 26.5 26.4 MCHC 32.5 31.9 RDW Std Deviation 43.7 43.9 Plt Count 73 L 78 L Neut % (Auto) 64 70 Lymph % (Auto) 23 16 [place] % (Auto) 9 9 Eos % (Auto) 4 5 Baso % (Auto) 1 1 Neut # (Auto) 1.2 L 1.4 L Lymph # (Auto) 0.4 L 0.3 L [place] # (Auto) 0.2 0.2 Eos # (Auto) 0.1 0.1 Baso # (Auto) 0.0 0.0 Immature Gran # (Auto) 0.01 H 0.01 H Absolute Nucleated RBC 0.00 0.00 Immature Gran % 1 H 1 H Nucleated RBC % 0 0 PT 13.0 H INR 1.2 APTT 31.3 Sodium 136 Potassium 4.4 Chloride 104 Carbon Dioxide 24.8 Anion Gap 7 BUN 26 H Creatinine 1.3 Estim Creat Clear Calc 59.7 L eGFR > 60 BUN/Creatinine Ratio [address] Glu mg/dL 100 Hemoglobin A1c 5.1 Calculated Osmolality 277 Calcium 8.6 Corrected Calcium 9.0 Phosphorus 4.3 Magnesium 1.9 Total Bilirubin 1.0 D AST 13 ALT 7 L Alkaline Phosphatase 73 Total Protein 6.5 Albumin 3.5 D Globulin 3.0 Albumin/Globulin Ratio 1.2 Triglycerides 77 Cholesterol 107 L LDL Cholesterol, Calc 61 HDL Cholesterol 31 L Cholesterol/HDL Ratio 3.5 L TSH 0.60 Misc Test Result Platelets confirmed Platelets confirmed Blood Type B Negative Antibody Screen NEGATIVE Blood Bank Wristband ID Yes Quality Measures Quality Measures none Assessment & Plan Assessment Current Active Medications: Generic Name Dose Route Start Last Admin Trade Name Freq PRN Reason Stop Dose Admin Acetaminophen 650 mg 11/19/24 14:12 Acetaminophen 325 Mg Tablet PO 12/19/24 14:11 Q6H PRN Fever >101.5 or pain 1-3 Albuterol/Ipratropium 3 ml 11/19/24 19:00 11/20/24 12:30 Albuterol/Ipratropium (Duoneb) Rt Renetta 3 Ml Nebu INH 12/19/24 18:59 3 ml Q6HRRT RUDDY Administration Piperacillin/Tazobactam/Dextrose 3.375 gm in 50 mls @ 12.5 mls/hr 11/19/24 22:00 11/20/24 05:03 Zosyn IV 11/26/24 21:59 12.5 mls/hr Q8HR RUDDY Administration Octreotide Acetate 1,000 mcg/ 102 mls @ 5.1 mls/hr 11/20/24 12:44 Sodium Chloride IV 11/24/24 16:43 .Q20H RUDDY Protocol 50 MCG/HR Octreotide Acetate 1,000 mcg/ 102 mls @ 5.1 mls/hr 11/19/24 16:45 11/19/24 17:34 Sodium Chloride IV 11/20/24 12:44 50 mcg/hr .Q20H RUDDY 5.1 mls/hr Administration Protocol 50 MCG/HR Levothyroxine Sodium 125 mcg/ 175 mcg 11/20/24 06:00 11/20/24 05:02 Levothyroxine Sodium 50 mcg PO 12/20/24 05:59 175 mcg ACBR RUDDY Administration Magnesium Hydroxide 30 ml 11/19/24 14:12 Milk Of Magnesia Susp 30 Ml Udc PO 12/19/24 14:11 QDAY PRN CONSTIPATION Protocol Morphine Sulfate 4 mg 11/19/24 14:12 11/20/24 09:03 Morphine Sulf Inj 10 Mg/Ml Vial IVP 11/24/24 14:11 4 mg Q4H PRN Administration Pain Scale 6-10 (Severe Ondansetron HCl 4 mg 11/19/24 14:17 11/19/24 16:27 Ondansetron Inj 2 Mg/Ml Inj 2 Ml IV 12/19/24 14:16 4 mg Q6H PRN Administration NAUSEA OR VOMITING Protocol Pantoprazole Sodium 40 mg 11/19/24 21:00 11/20/24 09:02 Pantoprazole Inj 40 Mg Vial IVP 12/19/24 20:59 40 mg Q12HR RUDDY Administration Trazodone HCl 50 mg 11/19/24 21:00 11/19/24 20:20 Trazodone Hcl 50 Mg Tablet PO 12/19/24 20:59 50 mg HS RUDDY Administration Plan 59 y/o male with PMHx of cirrhosis status post TIPS with stent placement 20 years ago at [place], chronic hep C, hypothyroidism, peptic ulcer disease, who comes to [facility] on 11/18/2024 for an evaluation of duodenal ulcer and GI bleed. #Penetrating duodenal ulcer #History of peptic ulcer disease Patient with pain in epigastric region at this time Suspicion for acute abdomen is low as patient abdomen is soft nondistended, however patient has history of peptic ulcer disease and takes Protonix at home No recent use of NSAIDs CT abdomen pelvis shows peptic ulcer disease and penetrating duodenal ulcer General Surgery Dr. Fraser was consulted suggested upper GI series At present point in time there is low suspicion for perforation, however if found to be perforated may need transfer to [place] considering patient's history with TIPS procedure Dr. Harmon, gastroenterology was consulted recommended upper GI series and if negative will do an EGD As patient's upper GI series will not be able to be done till Thursday, ordered chest x-ray to rule out air under the diaphragm or pneumoperitoneum -Pain control with morphine every 4 hours, breakthrough pain morphine 4 mg every 6 hours -Upper GI series, pending Thursday -Pantoprazole 40 mg twice daily -GI consulted, appreciate recommendations -General Surgery consulted, appreciate recommendations #GI bleed #Hematemesis Patient had 1 episode of bloody vomitus, never had this before Likely related to duodenal ulcer Patient has history of cirrhosis and is s/p TIPS procedure Hemoglobin baseline seems to be around 10 -On octreotide drip -Continue with Zosyn -Transfuse if hemoglobin drops below 7 -SCDs for DVT prophylaxis -GI consulted appreciate recommendations #History of cirrhosis #History of TIPS procedure #Hx of incisional hernia #History of hep C #Elevated PT #Thrombocytopenia #Neutropenia At this time, patient does not seem to be in decompensated liver disease Patient with history of chronic hepatitis C likely etiology of cirrhosis Patient does not report having any history of esophageal varices However due to 1 episode of hematemesis will start patient on octreotide at this time Patient does not have alcohol use disorder -Continue to monitor CBC and CMP #History of hypothyroidism -levothyroxine 175 mcg #History of insomnia -on home trazodone 50 mg Case discussed with my senior Dr. Rios PGY-[address] Jay Martin MD PGY-1 Disposition: Telemetry DVT prophylaxis: SCDs GI prophylaxis: Protonix 40 twice daily Diet: N.p.o. CODE STATUS: Full Senior resident attestation: Patient evaluated and examined at the bedside, plan of care discussed with rest of the team including my attending physician, except as noted. Patient is a 59-year-old male with past medical history of cirrhosis status post TIPSS, hepatitis C?received treatment, hypothyroidism, peptic ulcer disease, history of cholecystectomy who came to [facility] for epigastric pain starting 1 day prior. Patient has history of chronic peptic ulcer disease and has epigastric pain also has ventral hernia, which is easily reducible. Patient had prior surgeries done at [facility]. #Penetrating duodenal ulcer ?CT abdomen pelvis read as penetrating duodenal ulcer, but no clear documentation of perforation, reviewed CT imaging, negative for pneumoperitoneum, general surgery Dr. Fraser was consulted, less impressed with physical exam findings, does not consider acute surgical abdomen or need for emergency surgery at this point. Recommending following up with upper GI Gastrografin study. ? Started IV Zosyn ? IV Protonix twice daily following loading dose ? Keep n.p.o., maintenance IV fluid ?11/20/2024 patient is unable to get upper GI series as no radiologist on site, apparently onsite radiologist is needed to complete upper GI series. Ordered chest x-ray with diaphragm, did not show any evidence of pneumoperitoneum. ? Per GI recommendations, starting the patient on liquid diet and n.p.o. at midnight, upper GI series in the morning and will proceed with EGD if upper GI series normal. #GI bleed/hematemesis ? Described 1 episode of hematemesis, less likely variceal bleed at this point, given patient has history of TIPS, but there is evidence of portal hypertension given splenomegaly even in the presence of TIPS. For now likely culprit for GI bleed is penetrating duodenal ulcer, will hold off on octreotide, pending GI recommendations. ? Monitor H&H, vitals, transfuse if hemoglobin less than 7 #Thrombocytopenia?in the setting of cirrhosis #Anemia?in the setting of GI bleed/cirrhosis Quresh PGY2 Attending Provider Attestation/Addendum I have examined the patient, reviewed labs and imaging findings, discussed the case with the resident(s), and reviewed entered orders. I agree with the plan of care as outlined in this note, with these additional summaries/recommendations: Patient is a 57-year-old male with past history of cirrhosis s/p TIPS procedure, Hepatitis C infection S/P antivirals many years ago, hypothyroidism, asthma, cholecystectomy, and cirrhosis who presented to [facility] emergency department on 11/19/2024 with complaint of severe abdominal pain and 1 episode of hematemesis. Patient seen at bedside. No acute overnight events. Patient is admitted for upper GI bleed, possible penetrating duodenal ulcer, and intractable abdominal pain. Gastroenterology following. Continue IV Protonix, octreotide gtt., n.p.o., IV fluids, and monitor hemoglobin and hematocrit. Hemoglobin currently 11.3 and now down to 9.2 today. No further hematemesis episodes. Repeat H & H this afternoon. Platelet count currently 78. Transfuse for hemoglobin less than 7. Gastroenterology planning on EGD once perforation ruled out. CT abdomen and pelvis was obtained which showed severe active peptic disease of the duodenum with possible penetration through the duodenum although patient has no signs of peritonitis, guarding, or acute abdomen. He does have tenderness to palpation throughout abdomen. General surgery was consulted and ordered upper Gastrografin series to rule out perforation although unable to be completed till tomorrow. Continue pain management with IV morphine and IV Zosyn. Patient has chronic leukopenia and we will continue to monitor for now. Resume home oral medications when able. Patient has underlying cirrhosis and follows at [place]. He reports he was taken off the transplant list because his cirrhosis is currently stable. Patient updated on the plan and in agreement. Repeat hematology and chemistry panel in AM. Dr. Thompson
[2024-11-20] MEDS: OCTREOTIDE ACET INJ 1,000 MCG in SODIUM CHLORIDE 0.9% 100 ML 5.1 MCG IV (12:45)
--- NOTE | 2024-11-20 12:55 | PC.SS ---
This is 59-year-old, , single male who presented to the ED due to suffering from abdominal pain. Patient appeared alert and oriented to self, place and situation. Patient was pleasant. Patient reported that at this time, he is homeless and sleeping in his car. Sometimes, he is able to sleep inside the house. Patient is independent with all ADLS, no DME use. Patient receives around 1,000 dollars for SSDI. Patient follows up with Dr. aMrtin and [facility] for liver disease. Patient's medical decision maker is his daughter, Janeen. When medically clear, patient will need community resources for housing and transportation. Discharge plan: homeless discharge. Next of Kin: Janeen Elam., daughter. Plan: patient is pending general surgery and GI consults.
[2024-11-20] MEDS: traZODone HCL 50 MG TABLET PO (21:41)
[2024-11-21] VITALS (11 sets, daily range): BP systolic 97–118; BP diastolic 62–83; PULSE 61–76; RESP 16–20; TEMP 36.4–37.2; O2SAT 91–100; BMI 25.2
[2024-11-21] MEDS: ALBUTEROL/IPRATROPIUM (Duoneb) RT SOL 3 ML NEBU INH ×3 (01:21→18:12)
[2024-11-21] MEDS: MORPHINE SULF INJ 10 MG/ML VIAL 4 MG IVP ×6 (01:34→22:12)
[2024-11-21] MEDS: PIPER/TAZO 3.375 GM 3.375 GM/50 ML BAG IV (05:32)
[2024-11-21 06:00] LABS: Basophils % (Auto) 1 % (0-2.5); Eosinophils # (Auto) 0.1 Thou/mm3 (0.0-0.5); Eosinophils % (Auto) 6 % (0-10); Hematocrit 29.9 % (41.0-53.0); Hemoglobin 9.5 g/dL (13.5-16.0); Immature Granulocytes % (Auto) 0 % (0-0); Lymphocytes # (Auto) 0.5 Thou/mm3 (1.0-4.8); Lymphocytes % (Auto) 25 % (10-50); Mean Corpuscular HGB Conc 31.8 g/dl (31.0-37.0); Mean Corpuscular Hemoglobin 26.2 pg (25.0-35.0); Mean Corpuscular Volume 83 fL (80-100); Monocytes # (Auto) 0.2 Thou/mm3 (0.0-0.8); Monocytes % (Auto) 9 % (0-12); Neutrophils # (Auto) 1.2 Thou/mm3 (1.8-7.7); Neutrophils % (Auto) 60 % (37-80); Nucleated Red Blood Cell % 0 /100 WBC (0); Platelet Count 69 Thou/mm3 (140-440); RDW Standard Deviation 43.1 fL (35.1-43.9); Red Blood Count 3.62 Miln/mm3 (4.50-5.90)
[2024-11-21 06:08] LABS: Slide Review Platelets confirmed
[2024-11-21 06:15] LABS: INR 1.2 (0.9-1.3)
[2024-11-21 06:33] LABS: Alanine Aminotransferase < 7 U/L (10-49); Albumin, Serum 3.6 gm/dL (3.4-4.8); Anion Gap 5 (7-16); Aspartate Amino Transferase 12 U/L (0-34); BUN/Creatinine Ratio 14 Ratio (12-20); Bilirubin,Total 1.1 mg/dL (0.3-1.2); Blood Urea Nitrogen 18 mg/dL (9-23); Calcium 8.6 mg/dL (8.3-10.6); Calcium (Corrected) 8.9 mg/dL (8.5-10.1); Carbon Dioxide 28.3 mMol/L (20.0-31.0); Chloride 103 mMol/L (98-107); Creatinine (Component) 1.3 mg/dL (0.6-1.3); Estimated Creatinine Clearance 59.7 mL/min (>60); Glucose 118 mg/dL (74-106); Magnesium 2.1 mg/dL (1.6-2.6); Osmolality,Calculated 274 (275-295); Potassium 4.3 mMol/L (3.4-5.1); Sodium 136 mMol/L (136-145); Total Protein 6.9 gm/dL (5.7-8.2); eGFR > 60 See Note
[2024-11-21 06:34] LABS: Albumin/Globulin Ratio 1.1 (1.2-2.2); Alkaline Phosphatase 70 U/L (46-116); Globulin 3.3 gm/dL (2.3-3.5)
[2024-11-21] MEDS: PANTOPRAZOLE INJ 40 MG VIAL IVP ×2 (09:35→22:03)
[2024-11-21 09:44] LABS: Reticulocyte % (Auto) 1.4 % (0.5-1.5)
--- NOTE | 2024-11-21 09:56 | PC.SS ---
Follow up note: Upper GI series. Possible EGD pending results of upper GI.
[2024-11-21] MEDS: OCTREOTIDE ACET INJ 1,000 MCG in SODIUM CHLORIDE 0.9% 100 ML 5.1 MCG IV (10:11)
--- NOTE | 2024-11-21 10:34 | PD.RESPRO ---
Documentation for date of: 11/21/24 ATTESTATION: I saw and examined the patient this morning, and I agree with current management stated by the resident. Will continue to monitor patient during their stay. Patient was admitted for abdominal pain and imaging revealed peptic disease. Small bowel studies confirmed an underlying pathology and GI is likely to scope the patient for further evaluation. Disclaimer: Despite multiple revisions, due to the dictation software being used, the document bellow may not be free of grammatical errors including phonetic/typographic errors. However, this does not deter from our commitment to providing health care in the patient's best interest in mind. Dr. Brian Tineo, PGY-3 Subjective Subjective Interval history: Patient seen today at the bedside found awake, alert, orientedx3. No overnight events reported. Still complaining of some abdominal pain, however adequately controlled with current pain regimen. Today patient scheduled for Upper GI series, after which if results are negative, Dr. Harmon will do EGD procedure. Zosyn was switched to Ceftriaxone for SBP prophylaxis considering patients history of cirrhosis. Will continue to monitor at this time. Exam Vital Signs Temp Pulse Resp BP Pulse Ox O2 Del Method 97.9 F 67 20 104/67 95 Room Air 11/21/24 08:00 11/21/24 08:00 11/21/24 08:00 11/21/24 08:00 11/21/24 08:00 11/21/24 08:00 Narrative Exam Physical Exam GENERAL: NAD, AAOx3 HEENT: Moist mucosa. Eyes open, symmetrical, & clear CARDIO: Heart RRR, no obvious murmurs PULM: No noted coughing/dyspnea CTA B/L, no R/W/R GI: Abdomen soft, nondistended, tenderness to palpation in epigastric region. BSx4 SKIN/MSK/EXT: No wounds/rashes/edema/amputations, no pain on palpation. Pedal pulses present B/L NEURO: AAOx3, no focal neuro deficits, able to move all 4 extremities Objective Labs 11/22/24 04:55 11/22/24 04:55 Labs: Laboratory Results - last 24 hr 11/20/24 11/21/24 10:05 05:10 WBC 1.9 L 2.0 L RBC 3.60 L 3.62 L Hgb 9.5 L 9.5 L Hct 29.8 L 29.9 L MCV 83 83 MCH 26.4 26.2 MCHC 31.9 31.8 RDW Std Deviation 43.9 43.1 Plt Count 78 L 69 L Neut % (Auto) 70 60 Lymph % (Auto) 16 25 [place] % (Auto) 9 9 Eos % (Auto) 5 6 Baso % (Auto) 1 1 Neut # (Auto) 1.4 L 1.2 L Lymph # (Auto) 0.3 L 0.5 L [place] # (Auto) 0.2 0.2 Eos # (Auto) 0.1 0.1 Baso # (Auto) 0.0 0.0 Immature Gran # (Auto) 0.01 H 0.00 Absolute Nucleated RBC 0.00 0.00 Immature Gran % 1 H 0 Nucleated RBC % 0 0 Retic Count (auto) 1.4 Absolute Retic 52.0 Immature Retic Fraction 15.0 H Retic Hgb Content CHr 33.0 PT 13.0 H INR 1.2 Sodium 136 Potassium 4.3 Chloride 103 Carbon Dioxide 28.3 Anion Gap 5 L BUN 18 Creatinine 1.3 Estim Creat Clear Calc 59.7 L eGFR > 60 BUN/Creatinine Ratio 14 Glucose 118 H Calculated Osmolality 274 L Calcium 8.6 Corrected Calcium 8.9 Phosphorus 4.0 Magnesium 2.1 Total Bilirubin 1.1 AST 12 ALT < 7 L Alkaline Phosphatase 70 Total Protein 6.9 Albumin 3.6 Globulin 3.3 Albumin/Globulin Ratio 1.1 L Misc Test Result Platelets confirmed Platelets confirmed Quality Measures Quality Measures none Assessment & Plan Assessment Current Active Medications: Generic Name Dose Route Start Last Admin Trade Name Robbyq PRN Reason Stop Dose Admin Acetaminophen 650 mg 11/19/24 14:12 Acetaminophen 325 Mg Tablet PO 12/19/24 14:11 Q6H PRN Fever >101.5 or pain 1-3 Albuterol/Ipratropium 3 ml 11/19/24 19:00 11/21/24 07:22 Albuterol/Ipratropium (Duoneb) Rt Renetta 3 Ml Nebu INH 12/19/24 18:59 3 ml Q6HRRT RUDDY Administration Piperacillin/Tazobactam/Dextrose 3.375 gm in 50 mls @ 12.5 mls/hr 11/19/24 22:00 11/21/24 05:32 Zosyn IV 11/26/24 21:59 12.5 mls/hr Q8HR RUDDY Administration Octreotide Acetate 1,000 mcg/ 102 mls @ 5.1 mls/hr 11/20/24 12:44 11/21/24 10:11 Sodium Chloride IV 11/24/24 16:43 50 mcg/hr .Q20H RUDDY 5.1 mls/hr Administration Protocol 50 MCG/HR Levothyroxine Sodium 125 mcg/ 175 mcg 11/20/24 06:00 11/21/24 05:23 Levothyroxine Sodium 50 mcg PO 12/20/24 05:59 Not Given ACBR RUDDY Magnesium Hydroxide 30 ml 11/19/24 14:12 Milk Of Magnesia Susp 30 Ml Udc PO 12/19/24 14:11 QDAY PRN CONSTIPATION Protocol Morphine Sulfate 4 mg 11/19/24 14:12 11/21/24 09:34 Morphine Sulf Inj 10 Mg/Ml Vial IVP 11/24/24 14:11 4 mg Q4H PRN Administration Pain Scale 6-10 (Severe Ondansetron HCl 4 mg 11/19/24 14:17 11/19/24 16:27 Ondansetron Inj 2 Mg/Ml Inj 2 Ml IV 12/19/24 14:16 4 mg Q6H PRN Administration NAUSEA OR VOMITING Protocol Pantoprazole Sodium 40 mg 11/19/24 21:00 11/21/24 09:35 Pantoprazole Inj 40 Mg Vial IVP 12/19/24 20:59 40 mg Q12HR RUDDY Administration Trazodone HCl 50 mg 11/19/24 21:00 11/20/24 21:41 Trazodone Hcl 50 Mg Tablet PO 12/19/24 20:59 50 mg HS RUDDY Administration Plan 59 y/o male with PMHx of cirrhosis status post TIPS with stent placement 20 years ago at [place], chronic hep C, hypothyroidism, peptic ulcer disease, who comes to [facility] on 11/18/2024 for an evaluation of duodenal ulcer and GI bleed. #Penetrating duodenal ulcer #History of peptic ulcer disease Patient with pain in epigastric region at this time Suspicion for acute abdomen is low as patient abdomen is soft nondistended, however patient has history of peptic ulcer disease and takes Protonix at home No recent use of NSAIDs CT abdomen pelvis shows peptic ulcer disease and penetrating duodenal ulcer General Surgery Dr. Fraser was consulted suggested upper GI series At present point in time there is low suspicion for perforation, however if found to be perforated may need transfer to [place] considering patient's history with TIPS procedure Dr. Harmon, gastroenterology was consulted recommended upper GI series and if negative will do an EGD As patient's upper GI series will not be able to be done till Thursday, ordered chest x-ray to rule out air under the diaphragm or pneumoperitoneum -Pain control with morphine every 4 hours, breakthrough pain morphine 4 mg every 6 hours -Upper GI series, pending today, possible EGD -Pantoprazole 40 mg twice daily -GI consulted, appreciate recommendations -General Surgery consulted, appreciate recommendations #GI bleed #Hematemesis Patient had 1 episode of bloody vomitus, never had this before Likely related to duodenal ulcer Patient has history of cirrhosis and is s/p TIPS procedure Hemoglobin baseline seems to be around 10 -On octreotide drip -started on ceftriaxone -Transfuse if hemoglobin drops below 7 -SCDs for DVT prophylaxis -GI consulted appreciate recommendations #History of cirrhosis #History of TIPS procedure #Hx of incisional hernia #History of hep C #Elevated PT #Thrombocytopenia #Neutropenia At this time, patient does not seem to be in decompensated liver disease Patient with history of chronic hepatitis C likely etiology of cirrhosis Patient does not report having any history of esophageal varices However due to 1 episode of hematemesis will start patient on octreotide at this time Patient does not have alcohol use disorder -Continue to monitor CBC and CMP #History of hypothyroidism -levothyroxine 175 mcg #History of insomnia -on home trazodone 50 mg Case discussed with my senior Dr. Tineo PGY-[address] Rashad Martin MD PGY-1 Disposition: Telemetry DVT prophylaxis: SCDs GI prophylaxis: Protonix 40 twice daily Diet: N.p.o. CODE STATUS: Full Attending Provider Attestation/Addendum I have discussed and was present for the essential components of the history, physical examination, diagnosis, and treatment plan with the resident. I agree with the patient's care as documented by the resident and amended herein by me. Srinath Solorzano DO. Although this document has been carefully reviewed, there may still be some phonetic and other typographical errors. These errors are purely grammatical due to imperfections in the software program and should not be construed in any way to compromise the substance of the patient's medical care during this visit.
[2024-11-21] MEDS: cefTRIAXone/D5w 1gm IV premix 50 ML IV (12:47)
--- NOTE | 2024-11-21 13:24 | XR_ITS ---
Examination: Upper GI series with KUB Esophagram standard Fluoroscopy 25 spot fluoroscopic films of the esophagus and stomach AP DAMICO WALLISIAN, crosstable lateral abdomen films Exam date and time: November 21, 2024 1039 hours INDICATIONS: Abdominal pain this week, CT abdomen pelvis November 19, 2024 marked mucosal edema stomach and duodenum TECHNIQUE AND FINDINGS: Counselor Aid abdomen air distended colon TIPS procedure Patient swallowed thin barium with primary peristaltic esophageal waves, however significant secondary and tertiary esophageal contractions Moderate sized retrocardiac gastric hernia with stricture the gastroesophageal junction, moderate intermittent reflux Mucosal fold thickening in the antral region and involving the duodenal bulb No penetrating duodenal ulcers Small bowel unremarkable Fluoroscopy 10 seconds 25 spot fluoroscopic films IMPRESSION: Antral gastritis Active peptic disease duodenum, no duodenal ulcer
--- NOTE | 2024-11-21 19:40 | PD.IMPROG ---
Documentation for date of: 11/21/24 Subjective Subjective Interval history: Patient evaluated Upper GI series shows no microperforation Clear liquid diet N.p.o. midnight tonight for an upper endoscopy tomorrow Exam Vital Signs Temp Pulse Resp BP Pulse Ox O2 Del Method 98.9 F 72 20 113/64 94 L Room Air 11/21/24 16:00 11/21/24 18:12 11/21/24 18:12 11/21/24 16:00 11/21/24 18:12 11/21/24 16:00 Objective Labs 11/21/24 05:10 11/21/24 05:10 Labs: Laboratory Results - last 24 hr 11/21/24 05:10 WBC 2.0 L RBC 3.62 L Hgb 9.5 L Hct 29.9 L MCV 83 MCH 26.2 MCHC 31.8 RDW Std Deviation 43.1 Plt Count 69 L Neut % (Auto) 60 Lymph % (Auto) 25 [place] % (Auto) 9 Eos % (Auto) 6 Baso % (Auto) 1 Neut # (Auto) 1.2 L Lymph # (Auto) 0.5 L [place] # (Auto) 0.2 Eos # (Auto) 0.1 Baso # (Auto) 0.0 Immature Gran # (Auto) 0.00 Absolute Nucleated RBC 0.00 Immature Gran % 0 Nucleated RBC % 0 Retic Count (auto) 1.4 Absolute Retic 52.0 Immature Retic Fraction 15.0 H Retic Hgb Content CHr 33.0 PT 13.0 H INR 1.2 Sodium 136 Potassium 4.3 Chloride 103 Carbon Dioxide 28.3 Anion Gap 5 L BUN 18 Creatinine 1.3 Estim Creat Clear Calc 59.7 L eGFR > 60 BUN/Creatinine Ratio 14 Glucose 118 H Calculated Osmolality 274 L Calcium 8.6 Corrected Calcium 8.9 Phosphorus 4.0 Magnesium 2.1 Total Bilirubin 1.1 AST 12 ALT < 7 L Alkaline Phosphatase 70 Total Protein 6.9 Albumin 3.6 Globulin 3.3 Albumin/Globulin Ratio 1.1 L Misc Test Result Platelets confirmed Impressions Impression: # Gastritis # Duodenitis Plan N.p.o. midnight tonight except p.o. meds an upper endoscopy scheduled for tomorrow Assessment & Plan A&P Narrative # Most likely penetrating ulcer duodenum with possibly sealed off microperforation But no evidence of acute abdomen on examination # 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 IV Protonix Serial CBC If the Gastrografin upper GI series is negative and shows no microperforation will perform upper endoscopy for further evaluation Thank you once . For the opportunity to participate in the care of this patient Time Spent With Patient Time: Total time spent is greater than 50% in coordination of care (as documented) at patient's floor/unit and/or counseling patient:
--- NOTE | 2024-11-21 20:24 | PC.NURSE ---
seen and examined by Dr. Harmon - with orders made and carried out.
[2024-11-21] MEDS: traZODone HCL 50 MG TABLET PO (22:03)
[2024-11-22] VITALS (21 sets, daily range): BP systolic 94–125; BP diastolic 60–78; PULSE 57–74; RESP 12–90; TEMP 36.4–37.2; O2SAT 90–100; BMI 25.2
[2024-11-22] MEDS: MORPHINE SULF INJ 10 MG/ML VIAL 4 MG IVP ×6 (02:16→23:55)
[2024-11-22] MEDS: LEVOTHYROXINE SODIUM 125 MCG, LEVOTHYROXINE SODIUM 50 MCG 175 MCG PO (05:31)
--- NOTE | 2024-11-22 05:38 | PC.NURSE ---
re consent- Pt would like to talk to Dr. Harmon first re egd procedure before signing consnet.
[2024-11-22 06:08] LABS: Basophils % (Auto) 1 % (0-2.5); Eosinophils # (Auto) 0.3 Thou/mm3 (0.0-0.5); Eosinophils % (Auto) 8 % (0-10); Hemoglobin 11.6 g/dL (13.5-16.0); Immature Granulocytes % (Auto) 0 % (0-0); Immature Granulocytes Auto 0.01 Thou/mm3 (0.00-0.00); Lymphocytes # (Auto) 0.8 Thou/mm3 (1.0-4.8); Lymphocytes % (Auto) 21 % (10-50); Mean Corpuscular HGB Conc 32.2 g/dl (31.0-37.0); Mean Corpuscular Hemoglobin 26.6 pg (25.0-35.0); Mean Corpuscular Volume 83 fL (80-100); Monocytes # (Auto) 0.3 Thou/mm3 (0.0-0.8); Monocytes % (Auto) 8 % (0-12); Neutrophils # (Auto) 2.2 Thou/mm3 (1.8-7.7); Neutrophils % (Auto) 62 % (37-80); Nucleated Red Blood Cell % 0 /100 WBC (0); Platelet Count 108 Thou/mm3 (140-440); RDW Standard Deviation 44.4 fL (35.1-43.9); Red Blood Count 4.36 Miln/mm3 (4.50-5.90); White Blood Count 3.6 Thou/mm3 (3.8-10.6)
[2024-11-22] MEDS: OCTREOTIDE ACET INJ 1,000 MCG in SODIUM CHLORIDE 0.9% 100 ML 5.1 MCG IV (06:14)
[2024-11-22 06:20] LABS: INR 1.2 (0.9-1.3); Prothrombin Time 12.6 Seconds (9.0-12.2)
[2024-11-22 06:50] LABS: Alanine Aminotransferase 8 U/L (10-49); Albumin, Serum 4.2 gm/dL (3.4-4.8); Albumin/Globulin Ratio 1.1 (1.2-2.2); Alkaline Phosphatase 83 U/L (46-116); Anion Gap 9 (7-16); Aspartate Amino Transferase 17 U/L (0-34); BUN/Creatinine Ratio 13 Ratio (12-20); Bilirubin,Total 1.4 mg/dL (0.3-1.2); Blood Urea Nitrogen 15 mg/dL (9-23); Calcium 9.3 mg/dL (8.3-10.6); Calcium (Corrected) 9.3 mg/dL (8.5-10.1); Carbon Dioxide 26.5 mMol/L (20.0-31.0); Chloride 101 mMol/L (98-107); Creatinine (Component) 1.2 mg/dL (0.6-1.3); Estimated Creatinine Clearance 62.5 mL/min (>60); Globulin 3.8 gm/dL (2.3-3.5); Glucose 98 mg/dL (74-106); Magnesium 2.1 mg/dL (1.6-2.6); Osmolality,Calculated 272 (275-295); Phosphorous 2.9 mg/dL (2.4-5.1); Potassium 4.4 mMol/L (3.4-5.1); Sodium 136 mMol/L (136-145); eGFR > 60 See Note
[2024-11-22] MEDS: ALBUTEROL/IPRATROPIUM (Duoneb) RT SOL 3 ML NEBU INH ×3 (07:24→20:16)
--- NOTE | 2024-11-22 08:54 | ESPR_ITS ---
Documentation for date of: 11/22/24 ATTESTATION: I saw and examined the patient this morning, and I agree with current management stated by the resident. Will continue to monitor patient during their stay. Disclaimer: Despite multiple revisions, due to the dictation software being used, the document bellow may not be free of grammatical errors including phonetic/typographic errors. However, this does not deter from our commitment to providing health care in the patient's best interest in mind. Dr. Biran Tineo, PGY-3 Subjective Subjective Interval history: Patient seen today at the bedside found awake, alert, orientedx3. No overnight events reported. States pain has improved somewhat but is still having abdominal pain. Vital signs stable at this time. Labs today unremarkable. Patient had Upper GI series was negative for microperforation. Dr. Harmon, GI specialist, plans to do EGD today. Exam Vital Signs Temp Pulse Resp BP Pulse Ox O2 Del Method O2 Flow Rate 97.5 F 67 15 110/71 93 L Nasal Cannula 2 11/22/24 08:00 11/22/24 08:00 11/22/24 08:00 11/22/24 08:00 11/22/24 08:00 11/22/24 08:00 11/22/24 08:00 Narrative Exam Physical Exam GENERAL: NAD, AAOx3 HEENT: Moist mucosa. Eyes open, symmetrical, & clear CARDIO: Heart RRR, no obvious murmurs PULM: No noted coughing/dyspnea CTA B/L, no R/W/R GI: Abdomen soft, nondistended, tenderness to palpation in epigastric region- improving. BSx4 SKIN/MSK/EXT: No wounds/rashes/edema/amputations, no pain on palpation. Pedal pulses present B/L NEURO: AAOx3, no focal neuro deficits, able to move all 4 extremities Objective Labs 11/22/24 04:55 11/22/24 04:55 Labs: Laboratory Results - last 24 hr 11/21/24 11/22/24 05:10 04:55 WBC 2.0 L 3.6 L D RBC 3.62 L 4.36 L Hgb 9.5 L 11.6 L D Hct 29.9 L 36.0 L MCV 83 83 MCH 26.2 26.6 MCHC 31.8 32.2 RDW Std Deviation 43.1 44.4 H Plt Count 69 L 108 L D Neut % (Auto) 60 62 Lymph % (Auto) 25 21 Carroll % (Auto) 9 8 Eos % (Auto) 6 8 Baso % (Auto) 1 1 Neut # (Auto) 1.2 L 2.2 Lymph # (Auto) 0.5 L 0.8 L Carroll # (Auto) 0.2 0.3 Eos # (Auto) 0.1 0.3 Baso # (Auto) 0.0 0.0 Immature Gran # (Auto) 0.00 0.01 H Absolute Nucleated RBC 0.00 0.00 Immature Gran % 0 0 Nucleated RBC % 0 0 Retic Count (auto) 1.4 Absolute Retic 52.0 Immature Retic Fraction 15.0 H Retic Hgb Content CHr 33.0 PT 12.6 H INR 1.2 Sodium 136 Potassium 4.4 Chloride 101 Carbon Dioxide 26.5 Anion Gap 9 BUN 15 Creatinine 1.2 Estim Creat Clear Calc 62.5 eGFR > 60 BUN/Creatinine Ratio 13 Glucose 98 Calculated Osmolality 272 L Calcium 9.3 Corrected Calcium 9.3 Phosphorus 2.9 Magnesium 2.1 Total Bilirubin 1.4 H AST 17 ALT 8 L Alkaline Phosphatase 83 Total Protein 8.0 Albumin 4.2 D Globulin 3.8 H Albumin/Globulin Ratio 1.1 L Misc Test Result Platelets confirmed Quality Measures Quality Measures none Assessment & Plan Assessment Current Active Medications: Generic Name Dose Route Start Last Admin Trade Name Freq PRN Reason Stop Dose Admin Acetaminophen 650 mg 11/19/24 14:12 Acetaminophen 325 Mg Tablet PO 12/19/24 14:11 Q6H PRN Fever >101.5 or pain 1-3 Albuterol/Ipratropium 3 ml 11/19/24 19:00 11/22/24 07:24 Albuterol/Ipratropium (Duoneb) Rt Renetta 3 Ml Nebu INH 12/19/24 18:59 3 ml Q6HRRT RUDDY Administration Octreotide Acetate 1,000 mcg/ 102 mls @ 5.1 mls/hr 11/20/24 12:44 11/22/24 06:14 Sodium Chloride IV 11/24/24 16:43 50 mcg/hr .Q20H RUDDY 5.1 mls/hr Administration Protocol 50 MCG/HR Ceftriaxone Sodium/Dextrose 50 mls @ 100 mls/hr 11/21/24 12:11 11/21/24 12:47 Rocephin/D5w 1gm Iv Premix IV 11/28/24 12:10 100 mls/hr QDAY RUDDY Administration Levothyroxine Sodium 125 mcg/ 175 mcg 11/20/24 06:00 11/22/24 05:31 Levothyroxine Sodium 50 mcg PO 12/20/24 05:59 175 mcg ACBR RUDDY Administration Magnesium Hydroxide 30 ml 11/19/24 14:12 Milk Of Magnesia Susp 30 Ml Udc PO 12/19/24 14:11 QDAY PRN CONSTIPATION Protocol Morphine Sulfate 4 mg 11/19/24 14:12 11/22/24 06:14 Morphine Sulf Inj 10 Mg/Ml Vial IVP 11/24/24 14:11 4 mg Q4H PRN Administration Pain Scale 6-10 (Severe Ondansetron HCl 4 mg 11/19/24 14:17 11/19/24 16:27 Ondansetron Inj 2 Mg/Ml Inj 2 Ml IV 12/19/24 14:16 4 mg Q6H PRN Administration NAUSEA OR VOMITING Protocol Pantoprazole Sodium 40 mg 11/19/24 21:00 11/21/24 22:03 Pantoprazole Inj 40 Mg Vial IVP 12/19/24 20:59 40 mg Q12HR RUDDY Administration Trazodone HCl 50 mg 11/19/24 21:00 11/21/24 22:03 Trazodone Hcl 50 Mg Tablet PO 12/19/24 20:59 50 mg HS RUDDY Administration Plan 59 y/o male with PMHx of cirrhosis status post TIPS with stent placement 20 years ago at [place], chronic hep C, hypothyroidism, peptic ulcer disease, who comes to [facility] on 11/18/2024 for an evaluation of duodenal ulcer and GI bleed. #Penetrating duodenal ulcer #History of peptic ulcer disease Patient with pain in epigastric region at this time Suspicion for acute abdomen is low as patient abdomen is soft nondistended, however patient has history of peptic ulcer disease and takes Protonix at home No recent use of NSAIDs CT abdomen pelvis shows peptic ulcer disease and penetrating duodenal ulcer General Surgery Dr. Fraser was consulted suggested upper GI series At present point in time there is low suspicion for perforation, however if found to be perforated may need transfer to [place] considering patient's history with TIPS procedure Dr. Harmon, gastroenterology was consulted recommended upper GI series and if negative will do an EGD As patient's upper GI series will not be able to be done till Thursday, ordered chest x-ray to rule out air under the diaphragm or pneumoperitoneum Upper GI series showed antral gastritis, active PUD -Pain control with morphine every 4 hours, breakthrough pain morphine 4 mg every 6 hours -pending EGD today -Pantoprazole 40 mg twice daily -GI consulted, appreciate recommendations -General Surgery consulted, appreciate recommendations #GI bleed #Hematemesis Patient had 1 episode of bloody vomitus, never had this before Likely related to duodenal ulcer Patient has history of cirrhosis and is s/p TIPS procedure Hemoglobin baseline seems to be around 10 -On octreotide drip -on ceftriaxone -Transfuse if hemoglobin drops below 7 -SCDs for DVT prophylaxis -GI consulted appreciate recommendations #History of cirrhosis #History of TIPS procedure #Hx of incisional hernia #History of hep C #Elevated PT #Thrombocytopenia #Neutropenia At this time, patient does not seem to be in decompensated liver disease Patient with history of chronic hepatitis C likely etiology of cirrhosis Patient does not report having any history of esophageal varices However due to 1 episode of hematemesis will start patient on octreotide at this time Patient does not have alcohol use disorder -Continue to monitor CBC and CMP #History of hypothyroidism -levothyroxine 175 mcg #History of insomnia -on home trazodone 50 mg Case discussed with my senior Dr. Tineo PGY-[address] Rashad Martin MD PGY-1 Disposition: Telemetry DVT prophylaxis: SCDs GI prophylaxis: Protonix Diet: N.p.o. Attending Provider Attestation/Addendum I have examined the patient, reviewed labs and imaging findings, discussed the case with the resident(s), and reviewed entered orders. I agree with the plan of care as outlined in this note, with these additional summaries/recommendations: Patient is a 57-year-old male with past history of cirrhosis s/p TIPS procedure, Hepatitis C infection S/P antivirals many years ago, hypothyroidism, asthma, cholecystectomy, and cirrhosis who presented to [facility] emergency department on 11/19/2024 with complaint of severe abdominal pain and 1 episode of hematemesis. Patient seen at bedside. No acute overnight events. Upper GI series revealed antral gastritis and active peptic disease of duodenum and no perforation noted. Patient underwent EGD today with gastroenterology which revealed esophagitis, diffuse gastric erythema, few nonbleeding cratered duodenal ulcers (largest 30 mm in dimension), and small ulcers in the duodenal bulb but a very large ulcer at the junction of the duodenum 3 cm with deep excavating margins with high potential perforation. Biopsies were taken including for H. pylori and will follow-up when available. Per GI, start Protonix drip 8 mg/h, car friary suspension 1 g 4 times daily, and Maalox 15 mL p.o. every 4 hours. Patient has chronic leukopenia and we will continue to monitor for now. Resume home oral medications when able. Patient has underlying cirrhosis and follows at [place]. He reports he was taken off the transplant list because his cirrhosis is currently stable. Patient updated on the plan and in agreement. Repeat hematology and chemistry panel in AM. Dr. Thompson
[2024-11-22] MEDS: PANTOPRAZOLE INJ 40 MG VIAL IVP (10:09)
[2024-11-22] MEDS: cefTRIAXone/D5w 1gm IV premix 50 ML IV (10:09)
--- NOTE | 2024-11-22 12:57 | SUR.PHASEI ---
1257 Patient arrived to recovery, report received from Aria GOYAL
--- NOTE | 2024-11-22 13:17 | SUR.PHASEI ---
patient drinking water, tolerating well
--- NOTE | 2024-11-22 13:30 | SUR.PHASEI ---
1325 Report given to Paula RN, patient meets discharge criteria from recovery, awake and talking with staff, on oxygen 2L via nasal cannula, breathing unlabored, vital signs stable, denies pain, patient drinking water; tolerating well, denies nausea 1330 Patient transported via gurney back to room 368 without incident.
--- NOTE | 2024-11-22 14:04 | CHAP ---
09:30 AM Visited by spiritual care volunteer Provided prayer for Patient.
[2024-11-22] MEDS: PANTOPRAZOLE/NS 80MG IV PREMIX 80 MG/100 ML BAG 10 MG IV (14:58)
[2024-11-22] MEDS: SUCRALFATE SUSP 1 GM/10 ML UDC PO ×3 (14:58→21:03)
--- NOTE | 2024-11-22 17:00 | PC.NURSE ---
unable to do med rec patient states his sister is supposed to bring the medication but is busy and not answering, and patient doesnt recall what exactly he takes
[2024-11-22] MEDS: traZODone HCL 50 MG TABLET PO (21:03)
[2024-11-23] VITALS (11 sets, daily range): BP systolic 102–115; BP diastolic 62–77; PULSE 62–79; RESP 16–95; TEMP 36.6–37.2; O2SAT 92–98; BMI 25.2
[2024-11-23] MEDS: PANTOPRAZOLE/NS 80MG IV PREMIX 80 MG/100 ML BAG 10 MG IV ×3 (00:01→18:04)
[2024-11-23] MEDS: OCTREOTIDE ACET INJ 1,000 MCG in SODIUM CHLORIDE 0.9% 100 ML 5.1 MCG IV (01:14)
[2024-11-23] MEDS: ALBUTEROL/IPRATROPIUM (Duoneb) RT SOL 3 ML NEBU INH ×3 (01:50→13:48)
[2024-11-23] MEDS: LEVOTHYROXINE SODIUM 125 MCG, LEVOTHYROXINE SODIUM 50 MCG 175 MCG PO (05:35)
[2024-11-23] MEDS: SUCRALFATE SUSP 1 GM/10 ML UDC PO ×4 (05:35→21:20)
[2024-11-23] MEDS: MORPHINE SULF INJ 10 MG/ML VIAL 4 MG IVP (07:08)
--- NOTE | 2024-11-23 08:51 | PD.RESPRO ---
Documentation for date of: 11/23/24 ATTESTATION: I saw and examined the patient this morning, and I agree with current management stated by the resident. Will continue to monitor patient during their stay. Disclaimer: Despite multiple revisions, due to the dictation software being used, the document bellow may not be free of grammatical errors including phonetic/typographic errors. However, this does not deter from our commitment to providing health care in the patient's best interest in mind. Dr. Brian Tineo, PGY-3 Subjective Subjective Interval history: Patient seen today at the bedside found awake, alert, orientedx3. No overnight events reported. Patient states continued abdominal pain, pain regimen adjusted to po route, to wean off IV pain medications. Patient however is requesting specific pain medications to nursing staff. EGD was done yesterday showed some Esophagitis, non-bleeding duodenal ulcer, as well as small ulcers in the bulb with a very large ulcer 3cm at the junction of duodenal bulb and 1st part of duodenum with high potential for perforation. Spoke to GI, recommend to continue protonix drip and advance diet to peptic ulcer diet. Ocreotide drip discontinued. Exam Vital Signs Temp Pulse Resp BP Pulse Ox O2 Del Method O2 Flow Rate 98.3 F 71 18 108/74 96 Nasal Cannula 1 11/23/24 08:00 11/23/24 08:00 11/23/24 08:00 11/23/24 08:00 11/23/24 08:00 11/23/24 08:00 11/23/24 08:00 Narrative Exam Physical Exam GENERAL: NAD, AAOx3 HEENT: Moist mucosa. Eyes open, symmetrical, & clear CARDIO: Heart RRR, no obvious murmurs PULM: No noted coughing/dyspnea CTA B/L, no R/W/R GI: Abdomen soft, nondistended, tenderness to palpation in epigastric region. BSx4 SKIN/MSK/EXT: No wounds/rashes/edema/amputations, no pain on palpation. Pedal pulses present B/L NEURO: AAOx3, no focal neuro deficits, able to move all 4 extremities Objective Labs 11/22/24 04:55 11/22/24 04:55 Quality Measures Quality Measures none Assessment & Plan Assessment Current Active Medications: Generic Name Dose Route Start Last Admin Trade Name Freq PRN Reason Stop Dose Admin Acetaminophen 650 mg 11/19/24 14:12 Acetaminophen 325 Mg Tablet PO 12/19/24 14:11 Q6H PRN Fever >101.5 or pain 1-3 Al Hydrox/Mg Hydrox/Simethicone 30 ml 11/22/24 13:00 Mg Hyd/Al Hyd/Viviana (Maalox Reg) Susp 30 Ml Udc PO 12/22/24 12:59 Q4HR PRN UPSET STOMACH/INDIGESTION Albuterol/Ipratropium 3 ml 11/19/24 19:00 11/23/24 07:29 Albuterol/Ipratropium (Duoneb) Rt Renetta 3 Ml Nebu INH 12/19/24 18:59 3 ml Q6HRRT RUDDY Administration Octreotide Acetate 1,000 mcg/ 102 mls @ 5.1 mls/hr 11/20/24 12:44 11/23/24 01:14 Sodium Chloride IV 11/24/24 16:43 50 mcg/hr .Q20H RUDDY 5.1 mls/hr Administration Protocol 50 MCG/HR Ceftriaxone Sodium/Dextrose 50 mls @ 100 mls/hr 11/21/24 12:11 11/22/24 10:09 Rocephin/D5w 1gm Iv Premix IV 11/28/24 12:10 100 mls/hr QDAY RUDDY Administration Pantoprazole Sodium 80 mg in 100 mls @ 10 mls/hr 11/22/24 13:00 11/23/24 00:01 Protonix/Ns 80mg Iv Premix IV 11/25/24 10:59 10 mls/hr Q10H RUDDY Administration Levothyroxine Sodium 125 mcg/ 175 mcg 11/20/24 06:00 11/23/24 05:35 Levothyroxine Sodium 50 mcg PO 12/20/24 05:59 175 mcg ACBR RUDDY Administration Magnesium Hydroxide 30 ml 11/19/24 14:12 Milk Of Magnesia Susp 30 Ml Udc PO 12/19/24 14:11 QDAY PRN CONSTIPATION Protocol Morphine Sulfate 4 mg 11/19/24 14:12 11/23/24 07:08 Morphine Sulf Inj 10 Mg/Ml Vial IVP 11/24/24 14:11 4 mg Q4H PRN Administration Pain Scale 6-10 (Severe Ondansetron HCl 4 mg 11/19/24 14:17 11/19/24 16:27 Ondansetron Inj 2 Mg/Ml Inj 2 Ml IV 12/19/24 14:16 4 mg Q6H PRN Administration NAUSEA OR VOMITING Protocol Sucralfate 1 gm 11/22/24 13:00 11/23/24 05:35 Sucralfate Susp 1 Gm/10 Ml Udc PO 12/22/24 12:59 1 gm QID RUDDY Administration Trazodone HCl 50 mg 11/19/24 21:00 11/22/24 21:03 Trazodone Hcl 50 Mg Tablet PO 12/19/24 20:59 50 mg HS RUDDY Administration Plan 59 y/o male with PMHx of cirrhosis status post TIPS with stent placement 20 years ago at [place], chronic hep C, hypothyroidism, peptic ulcer disease, who comes to [facility] on 11/18/2024 for an evaluation of duodenal ulcer and GI bleed. #Large ulcer in the junction of the duodenal bulb and 1st part of duodenum #Esophagitis #Penetrating duodenal ulcer #History of peptic ulcer disease Patient with pain in epigastric region at this time Suspicion for acute abdomen is low as patient abdomen is soft nondistended, however patient has history of peptic ulcer disease and takes Protonix at home No recent use of NSAIDs CT abdomen pelvis shows peptic ulcer disease and penetrating duodenal ulcer General Surgery Dr. Fraser was consulted suggested upper GI series At present point in time there is low suspicion for perforation, however if found to be perforated may need transfer to [place] considering patient's history with TIPS procedure Dr. Harmon, gastroenterology was consulted recommended upper GI series and if negative will do an EGD As patient's upper GI series will not be able to be done till Thursday, ordered chest x-ray to rule out air under the diaphragm or pneumoperitoneum Upper GI series showed antral gastritis, active PUD EGD was done showed Esophagitis, non-bleeding duodenal ulcer, as well as small ulcers in the bulb with a very large ulcer 3cm at the junction of duodenal bulb and 1st part of duodenum with high potential for perforation. -Pain control with tramadol po, IV morphine for breakthrough pain -Pantoprazole drip -advance to peptic ulcer diet -GI consulted, appreciate recommendations -General Surgery consulted, appreciate recommendations #GI bleed #Hematemesis Patient had 1 episode of bloody vomitus, never had this before Likely related to duodenal ulcer Patient has history of cirrhosis and is s/p TIPS procedure Hemoglobin baseline seems to be around 10 -on ceftriaxone -Transfuse if hemoglobin drops below 7 -SCDs for DVT prophylaxis -GI consulted appreciate recommendations #History of cirrhosis #History of TIPS procedure #Hx of incisional hernia #History of hep C #Elevated PT #Thrombocytopenia #Neutropenia At this time, patient does not seem to be in decompensated liver disease Patient with history of chronic hepatitis C likely etiology of cirrhosis Patient does not report having any history of esophageal varices However due to 1 episode of hematemesis will start patient on octreotide at this time Patient does not have alcohol use disorder -Continue to monitor CBC and CMP #History of hypothyroidism -levothyroxine 175 mcg #History of insomnia -on home trazodone 50 mg Case discussed with my senior Dr. Tineo PGY-[address] aJy Martin MD PGY-1 Disposition: Telemetry DVT prophylaxis: SCDs GI prophylaxis: Protonix drip Diet: N.p.o. Attending Provider Attestation/Addendum I have examined the patient, reviewed labs and imaging findings, discussed the case with the resident(s), and reviewed entered orders. I agree with the plan of care as outlined in this note, with these additional summaries/recommendations: Patient is a 57-year-old male with past history of cirrhosis s/p TIPS procedure, Hepatitis C infection S/P antivirals many years ago, hypothyroidism, asthma, cholecystectomy, and cirrhosis who presented to [facility] emergency department on 11/19/2024 with complaint of severe abdominal pain and 1 episode of hematemesis. Patient seen at bedside. No acute overnight events. Upper GI series revealed antral gastritis and active peptic disease of duodenum and no perforation noted. Patient underwent EGD with gastroenterology which revealed esophagitis, diffuse gastric erythema, few nonbleeding cratered duodenal ulcers (largest 30 mm in dimension), and small ulcers in the duodenal bulb but a very large ulcer at the junction of the duodenum 3 cm with deep excavating margins with high potential perforation. Biopsies were taken including for H. pylori and will follow-up when available. Per GI, continue Protonix drip 8 mg/h, carfarate suspension 1 g 4 times daily, and Maalox 15 mL p.o. every 4 hours. Patient is endorsing intractable abdominal pain although discussed we will need to wean IV morphine in anticipation of discharge in the next 24 to 48 hours, Patient in agreement. Patient has chronic leukopenia and we will continue to monitor for now as it is improving. Patient has underlying cirrhosis and follows at [place]. He reports he was taken off the transplant list because his cirrhosis is currently stable. Patient updated on the plan and in agreement. Repeat hematology and chemistry panel in AM. Dr. Thompson
[2024-11-23] MEDS: cefTRIAXone/D5w 1gm IV premix 50 ML IV (09:13)
[2024-11-23] MEDS: LACTULOSE SYRUP 20 GM/30 ML UDC PO ×3 (10:16→21:20)
[2024-11-23] MEDS: MORPHINE SULF INJ 10 MG/ML VIAL 2 MG IVP ×3 (12:07→21:17)
[2024-11-23 13:01] LABS: Ammonia 35 uMol/L (11-32)
--- NOTE | 2024-11-23 14:07 | PD.IMPROG ---
Documentation for date of: 11/23/24 Subjective Subjective Interval history: Hemoglobin hematocrit 11.6 and 36.0 Case discussed with internal medicine team Advised to peptic ulcer disease diet If hemoglobin hematocrit stable by tomorrow patient can be discharged home on the following Omeprazole 40 mg twice daily Carafate 1 g 4 times daily To be followed by the primary care physician Exam Vital Signs Temp Pulse Resp BP Pulse Ox O2 Del Method O2 Flow Rate 98.9 F 65 16 108/77 98 Nasal Cannula 1 11/23/24 12:00 11/23/24 13:49 11/23/24 13:49 11/23/24 12:00 11/23/24 13:49 11/23/24 12:00 11/23/24 12:00 Objective Labs 11/22/24 04:55 11/22/24 04:55 Labs: Laboratory Results - last 24 hr 11/23/24 12:27 Ammonia 35 H Impressions Impression: # Large duodenal bulb ulcer Continue current management advance to peptic ulcer disease diet Assessment & Plan A&P Narrative # Most likely penetrating ulcer duodenum with possibly sealed off microperforation But no evidence of acute abdomen on examination # 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 IV Protonix Serial CBC If the Gastrografin upper GI series is negative and shows no microperforation will perform upper endoscopy for further evaluation Thank you once . For the opportunity to participate in the care of this patient Time Spent With Patient Time: Total time spent is greater than 50% in coordination of care (as documented) at patient's floor/unit and/or counseling patient:
--- NOTE | 2024-11-23 14:32 | PC.SS ---
Rounding Note: Plan is to advance diet. Possible d/c tomorrow.
--- NOTE | 2024-11-23 14:53 | PC.NURSE ---
ask pt. to give a list of medication take at home per pt. no one is available toiday today to bring med list
[2024-11-23] MEDS: traZODone HCL 50 MG TABLET PO (21:20)
[2024-11-24] VITALS: BP 108/74; PULSE 65; PULSE 71; RESP 16; TEMP 36.7; O2SAT 93
[2024-11-24] MEDS: MORPHINE SULF INJ 10 MG/ML VIAL 2 MG IVP ×2 (03:49→08:42)
[2024-11-24 04:00] VITALS: BP 132/80; PULSE 65; PULSE 77; RESP 17; TEMP 36.6; O2SAT 95
[2024-11-24] MEDS: PANTOPRAZOLE/NS 80MG IV PREMIX 80 MG/100 ML BAG 10 MG IV (04:43)
[2024-11-24] MEDS: LACTULOSE SYRUP 20 GM/30 ML UDC PO (05:26)
[2024-11-24] MEDS: SUCRALFATE SUSP 1 GM/10 ML UDC PO ×2 (05:26→11:54)
[2024-11-24] MEDS: LEVOTHYROXINE SODIUM 125 MCG, LEVOTHYROXINE SODIUM 50 MCG 175 MCG PO (05:26)
[2024-11-24 07:27] VITALS: BP 133/87; PULSE 73; RESP 17; TEMP 36.2; O2SAT 95
[2024-11-24] MEDS: ALBUTEROL/IPRATROPIUM (Duoneb) RT SOL 3 ML NEBU INH (07:45)
[2024-11-24 07:47] VITALS: PULSE 88; RESP 18; RESP 96; O2SAT 99
[2024-11-24 08:00] VITALS: PULSE 88
[2024-11-24] MEDS: cefTRIAXone/D5w 1gm IV premix 50 ML IV (08:43)
--- NOTE | 2024-11-24 09:35 | PC.SS ---
SS met with pt to discuss d/c plan. Pt is requesting to return back to [place]. Pt states family will provide transportation. SS provided pt with [facility] and from the community resource drive (example for transportation, housing, homeless residential, and resources). Pt was receptive. SS has informed bedside nurseSatya pt will require a sack lunch at d/c to take with him. Pt states he has appropriate clothes (pants, sweater, shoes, socks, and underwear).
[2024-11-24 09:47] LABS: Basophils % (Auto) 1 % (0-2.5); Eosinophils # (Auto) 0.2 Thou/mm3 (0.0-0.5); Eosinophils % (Auto) 9 % (0-10); Hematocrit 32.4 % (41.0-53.0); Hemoglobin 10.3 g/dL (13.5-16.0); Immature Granulocytes % (Auto) 0 % (0-0); Lymphocytes # (Auto) 0.3 Thou/mm3 (1.0-4.8); Lymphocytes % (Auto) 12 % (10-50); Mean Corpuscular HGB Conc 31.8 g/dl (31.0-37.0); Mean Corpuscular Hemoglobin 26.3 pg (25.0-35.0); Mean Corpuscular Volume 83 fL (80-100); Monocytes # (Auto) 0.2 Thou/mm3 (0.0-0.8); Monocytes % (Auto) 9 % (0-12); Neutrophils # (Auto) 1.5 Thou/mm3 (1.8-7.7); Neutrophils % (Auto) 70 % (37-80); Nucleated Red Blood Cell % 0 /100 WBC (0); RDW Standard Deviation 45.2 fL (35.1-43.9); Red Blood Count 3.91 Miln/mm3 (4.50-5.90)
[2024-11-24 10:20] LABS: Alanine Aminotransferase < 7 U/L (10-49); Albumin/Globulin Ratio 1.2 (1.2-2.2); Alkaline Phosphatase 74 U/L (46-116); Anion Gap 8 (7-16); Aspartate Amino Transferase 10 U/L (0-34); BUN/Creatinine Ratio 16 Ratio (12-20); Bilirubin,Total 0.8 mg/dL (0.3-1.2); Blood Urea Nitrogen 19 mg/dL (9-23); Carbon Dioxide 25.2 mMol/L (20.0-31.0); Chloride 105 mMol/L (98-107); Creatinine (Component) 1.2 mg/dL (0.6-1.3); Estimated Creatinine Clearance 62.5 mL/min (>60); Globulin 3.4 gm/dL (2.3-3.5); Glucose 143 mg/dL (74-106); Osmolality,Calculated 279 (275-295); Potassium 3.8 mMol/L (3.4-5.1); Sodium 138 mMol/L (136-145); Total Protein 7.4 gm/dL (5.7-8.2); eGFR > 60 See Note
[2024-11-24 10:48] LABS: Platelet Count 62 Thou/mm3 (140-440); White Blood Count 2.2 Thou/mm3 (3.8-10.6)
[2024-11-24 10:49] LABS: Slide Review Platelets confirmed
--- NOTE | 2024-11-24 11:30 | ESDS_ITS ---
Planned Discharge Date 11/24/24 DS: Providers Provider Date of admission: 11/19/24 14:08 Primary care physician: Justin Martin MD Admitting Provider: Manolo Thompson MD Attending Provider on Admission: Efe Solorzano DO Consults: 11/19/24 11:41 Consult to General Surgery Stat Comment: Consulting Provider: Shyann Kamara 11/19/24 13:35 Consult to Gastroenterology Stat Comment: Consulting Provider: Tammy Harmon Attending Provider on DC: Manolo Thompson MD Discharging Provider: Isael Martin MD Anticipated date of discharge: 11/24/24 DS: Diagnosis Problem List Completed Was Problem List Reviewed/Reconciled?: Yes Hospital Course Hospital Course Hospital course: 59 y/o male with PMHx of cirrhosis (status post TIPS with stent placement 20 years ago at [place]), chronic hep C, hypothyroidism, peptic ulcer disease, who comes to [facility] on 11/18/2024 for an evaluation of diffuse abdominal pain, onset yesterday, rated 10 out of 10, not relieved by anything, never experienced this before, associated with 1 episode of hematemesis described as bright red in color. Admitted for an evaluation of duodenal ulcer and GI bleed. During hospital stay patient had CT abdomen pelvis shows peptic ulcer disease and penetrating duodenal ulcer. General Surgery Dr. Fraser was consulted suggested upper GI series. Upper GI series showed antral gastritis, active PUD. GI specialist, Dr. Harmon was consulted and recommended EGD. EGD was done showed Esophagitis, non-bleeding duodenal ulcer, as well as small ulcers in the bulb with a very large ulcer 3cm at the junction of duodenal bulb and 1st part of duodenum with high potential for perforation. Pain was controlled with pain medications. Patient was placed on clear liquid diet and was advanced as tolerated. Patient also was placed on protonix drip for management of duodenal ulcers. Ocreotide drip was also strarted as pat of management for Hematemesis. Gi recommended patient to be given maalox, carafate, and omeprazole for peptic ulcers. Patient is medically stable for discharge. Patient can return home and continue taking maalox, carafate and omeprazole for his peptic ulcers. Need to avoid spicy food and acidic foods. Discontinue clindamycin and avoid meloxicam and other NSAIDS. Patient can take percocet as needed for pain and titrate them down. Patient needs to follow up with PCP in 1 week to monitor symptoms. Patient also needs to follow up with GI, Dr Harmon, in 1-2 weeks to monitor his peptic ulcers and follow up biopsy results to rule out H pylori infection Problem List: #Large ulcer in the junction of the duodenal bulb and 1st part of duodenum #Esophagitis #Penetrating duodenal ulcer #History of peptic ulcer disease #GI bleed #Hematemesis #History of cirrhosis #History of TIPS procedure #Hx of incisional hernia #History of hep C #Elevated PT #Thrombocytopenia #Neutropenia #History of hypothyroidism #History of insomnia Case discussed with my senior Dr. Tineo PGY-[address] Jay Martin MD PGY-1 Status at Discharge Overall status at discharge: patient is progressing back to baseline Time Spent with Patient Time attestation: Total time spent providing and/or coordinating discharge services: Time spent: Greater than 30 minutes Exam Vital Signs Temp Pulse Resp BP Pulse Ox O2 Del Method O2 Flow Rate 97.2 F 88 18 133/87 H 99 Room Air 1 11/24/24 07:27 11/24/24 08:00 11/24/24 07:47 11/24/24 07:27 11/24/24 07:47 11/24/24 07:27 11/23/24 12:00 Narrative Exam Physical Exam GENERAL: NAD, AAOx3 HEENT: Moist mucosa. Eyes open, symmetrical, & clear CARDIO: Heart RRR, no obvious murmurs PULM: No noted coughing/dyspnea CTA B/L, no R/W/R GI: Abdomen soft, nondistended, tenderness to palpation in epigastric region. BSx4 SKIN/MSK/EXT: No wounds/rashes/edema/amputations, no pain on palpation. Pedal pulses present B/L NEURO: AAOx3, no focal neuro deficits, able to move all 4 extremities Discharge Plan Plan Patient Disposition: HOME (Self Care) Disposition Comment: stale at signout Patient condition on transfer: Stable Care Plan Goals: Patient can return home and continue taking maalox, carafate and omeprazole for his peptic ulcers. Need to avoid spicy food and acidic foods. Discontinue clindamycin and avoid karen oxicam and other NSAIDS. Patient can take percocet as needed for pain and titrate them down. Patient needs to follow up with PCP in 1 week to monitor symptoms Patient also needs to follow up with GI, Dr Harmon, in 1-2 weeks to monitor his peptic ulcers and follow up biopsy results to rule out H pylori infection Prescriptions/Referrals Prescriptions/Med Rec: New sucralfate [Carafate] 1 gram tablet 1 g PO Q6H 30 Days Qty: 120 0RF alum-mag hydroxide-simeth [Advanced Antacid-Antigas] 200-200-20 mg/5 mL suspension 15 ml PO Q4H 30 Days Qty: 2700 0RF Rx Instructions: administer between meals and at bedtime oxycodone-acetaminophen 7.5-325 mg tablet 1 tab PO Q6H MDD no more than 4 pills per day PRN (Reason: pain) 3 Days Qty: 12 0RF omeprazole 40 mg capsule,delayed release(DR/EC) 40 mg PO BID 30 Days Qty: 60 0RF Continued tizanidine 4 mg tablet 4 - 8 mg PO QPM Patient Comments: TAKE 1 TO 2 TABLETS BY MOUTH EVERY EVENING AT BED TIME gabapentin 400 mg capsule 400 mg PO Q8H Patient Comments: TAKE ONE CAPSULE BY MOUTH EVERY 8 HOURS nystatin 100,000 unit/gram cream See Rx Instructions .ROUTE .COMPLEX Patient Comments: APPLY topically THREE TIMES DAILY Rx Instructions: APPLY TOPICALLY THREE TIMES A DAY lidocaine 5 % adhesive patch,medicated See Rx Instructions .ROUTE .COMPLEX Patient Comments: APPLY ONE PATCH FOR 12 hours AND 12 hours off Rx Instructions: APPLY 1 PATCH FOR 12 HOURS AND 12 HOURS OFF levothyroxine 150 mcg tablet 175 mcg PO QDAY Patient Comments: TAKE ONE TABLET BY MOUTH EVERY DAY IN THE MORNING FOR THYROID albuterol sulfate 90 mcg/actuation HFA aerosol inhaler 2 puff INHALATION Q6H PRN (Reason: Shortness Of Breath Or Wheezing) Patient Comments: INHALE TWO PUFFS BY MOUTH EVERY 6 HOURS NEEDED naloxone [Narcan] 4 mg/actuation spray,non-aerosol 4 mg intranasal Q3M PRN (Reason: opioid overdose) Qty: 2 0RF Rx Instructions: spray 1 dose into ONE nostril; alternate nostrils w each dose Discontinued oxycodone 10 mg tablet 10 mg PO BID PRN (Reason: Pain) Patient Comments: TAKE ONE TABLET BY MOUTH TWICE DAILY NEEDED FOR PAIN clindamycin HCl 300 mg capsule 300 mg PO QID Qty: 40 0RF meloxicam 15 mg tablet 15 mg PO QDAY PRN (Reason: pain (scale score 4-6)) Qty: 7 0RF Referrals: Justin Martin MD [Primary Care Provider] - Patient/Caregiver Discharge Instructions Print Language: Hebrew Stand Alone Forms: Kelley Award Info., Patient Portal Info Letter Discharge Order Discharge Orders: Discharge (Routine); Ordered 11/24/24 Ordered By: Isael Martin Quality Discharge Quality Measures VTE prophylaxis MD Attestestation MD Attestation I have examined the patient, reviewed labs and imaging findings, discussed the case with the resident(s), and reviewed entered orders. I agree with the plan of care as outlined in this note. Dr. Thompson
[2024-11-24 11:53] VITALS: BP 119/77; PULSE 68; RESP 18; TEMP 36.3; O2SAT 99
--- NOTE | 2024-11-24 12:45 | PC.NURSE ---
Pt. has couple of questions from doctor before he gets dischage. has been notified. Waiting for them to come and see the pt. before gets discharge.
== END 2024-11-24 13:24 | disposition home or self-care (01) | DRG 243 ==
LOC: SERX 11-19 06:33 → SERHOLD 11-19 14:38 → S2NX 11-19 17:39 → S3SX 11-21 10:09
PROVIDERS: Emergency Medicine; Physician Assistant; Specialist; Student in an Organized Health Care Education/Training Program; Admitting Provider Student in an Organized Health Care Education/Training Program; Emergency Provider Emergency Medicine; PCP Family Medicine; Visit Provider Student in an Organized Health Care Education/Training Program
PROC: 0DB38ZX Excision of Lower Esophagus, Via Natural or Artificial Opening Endoscopic, Diagnostic (ICD-10-PCS; CPT 43239; principal; 2024-11-22 12:00)
DX: K20.91 Esophagitis, unspecified with bleeding (principal); K26.4 Chronic or unspecified duodenal ulcer with hemorrhage; K44.9 Diaphragmatic hernia without obstruction or gangrene; B18.2 Chronic viral hepatitis C; K74.60 Unspecified cirrhosis of liver; E03.9 Hypothyroidism, unspecified; R79.1 Abnormal coagulation profile; D70.9 Neutropenia, unspecified; K29.61 Other gastritis with bleeding; G47.00 Insomnia, unspecified; D69.59 Other secondary thrombocytopenia; D50.0 Iron deficiency anemia secondary to blood loss (chronic); D73.1 Hypersplenism; J45.909 Unspecified asthma, uncomplicated; K76.6 Portal hypertension; F17.200 Nicotine dependence, unspecified, uncomplicated; Z90.49 Acquired absence of other specified parts of digestive tract
CPT/HCPCS: 36415; 71045; 74177; 74240; 80053; 80061; 82140; 83036; 83605; 83690; 83735; 84100; 84443; 85025; 85046; 85610; 85730; 86850; 86900; 86901; 93225; 94640; 94664; 96365; 96366; 96375; 96376; 99285; A4649; A9270; J0696; J1200; J2250; J2270; J2354; J2405; J2470; J2543; J3010; J3475; J3490; J7030; J7050; Q9967

== ENCOUNTER 2025-03-13 23:38 | Inpatient (IN) | payer MEDICAID, SELFPAY ==
[2025-03-13 23:39] VITALS: BMI 24.2
[2025-03-14] VITALS (15 sets, daily range): BP systolic 109–135; BP diastolic 62–92; PULSE 65–88; RESP 15–21; TEMP 36.2–38.4; O2SAT 95–100; BMI 24.2
--- NOTE | 2025-03-14 00:07 | XR_ITS ---
Examination: CT abdomen with intravenous contrast CT pelvis with intravenous contrast 2-D coronal reconstructions 2-D sagittal reconstructions Date and time of exam:March 17, 2025 0435 hrs. Comparison November 19, 2024 Indications: Abdominal pain beginning 3 days ago, history of ulcer, history hernia. CTDI: vol (mGy) 6.49 DLP: (mGycm) 398 Technique: Multiple axial sections of the abdomen and pelvis have been obtained. 64 slice high-resolution scanner used. 3 mm axial sections have been obtained, post intravenous injection 60 cc [id number] 2-D sagittal, coronal reconstructions obtained. Low dose protocols were performed. One or more of the following dose reduction techniques were used; automated exposure control, adjustment of the mA and/or KV according to patient size, use of iterative reconstruction technique. Findings: Cirrhosis, liver irregular in contour with portacaval scans Edema involving the stomach and duodenum Prominent splenomegaly Portosystemic collateral vessels medial to the spleen Perigastric varices No hydronephrosis No bowel obstruction Normal appendix No diverticulitis Urinary bladder intact No prostatomegaly Moderate osteopenia Impression: Gastritis pattern Active peptic disease duodenum Cirrhosis Prominent splenomegaly Portal hypertension Perigastric varices
--- NOTE | 2025-03-14 00:16 | PD.EDRME ---
Rapid Medical Screening Exam RME Arrival date/time: 03/13/25 23:38 59 yo m present to Ed for c/o of abd pain for 2 days. I have greeted and performed a focused initial assessment of this patient. A comprehensive ED assessment and evaluation of the patient, analysis of all test results, and completion of the medical decision making process will be conducted by additional ED providers. Chief Complaint: Abdominal Pain Time Seen by Provider: 03/14/25 00:05 Vital signs: Vital Signs Temperature 100.1 F 03/14/25 00:00 Pulse Rate 88 03/14/25 00:00 Respiratory Rate 20 03/14/25 00:00 Blood Pressure 118/74 03/14/25 00:00 Pulse Oximetry (%) 97 03/14/25 00:00 Oxygen Delivery Method Room Air 03/14/25 00:00
[2025-03-14 01:13] LABS: Lactate (Lactic Acid) 1.2 mMol/L (0.4-2.0)
[2025-03-14 01:18] LABS: Basophils % (Auto) 1 % (0-2.5); Eosinophils % (Auto) 1 % (0-10); Hematocrit 34.4 % (41.0-53.0); Hemoglobin 11.2 g/dL (13.5-16.0); Immature Granulocytes % (Auto) 1 % (0-0); Immature Granulocytes Auto 0.01 Thou/mm3 (0.00-0.00); Lymphocytes # (Auto) 0.2 Thou/mm3 (1.0-4.8); Lymphocytes % (Auto) 13 % (10-50); Mean Corpuscular HGB Conc 32.6 g/dl (31.0-37.0); Mean Corpuscular Hemoglobin 26.1 pg (25.0-35.0); Mean Corpuscular Volume 80 fL (80-100); Monocytes # (Auto) 0.3 Thou/mm3 (0.0-0.8); Monocytes % (Auto) 14 % (0-12); Neutrophils # (Auto) 1.2 Thou/mm3 (1.8-7.7); Neutrophils % (Auto) 71 % (37-80); Nucleated Red Blood Cell % 0 /100 WBC (0); RDW Standard Deviation 46.2 fL (35.1-43.9); Red Blood Count 4.29 Miln/mm3 (4.50-5.90)
[2025-03-14 01:30] LABS: Platelet Count 55 Thou/mm3 (140-440); White Blood Count 1.7 Thou/mm3 (3.8-10.6)
[2025-03-14] MEDS: HYDROcodone/APAP 10/325 TAB PO (01:42)
[2025-03-14 01:54] LABS: Slide Review Platelets confirmed
[2025-03-14 02:18] LABS: Alanine Aminotransferase 8 U/L (10-49); Albumin, Serum 4.5 gm/dL (3.4-4.8); Albumin/Globulin Ratio 1.1 (1.2-2.2); Alkaline Phosphatase 65 U/L (46-116); Anion Gap 7 (7-16); Aspartate Amino Transferase 25 U/L (0-34); BUN/Creatinine Ratio 13 Ratio (12-20); Bilirubin,Total 0.9 mg/dL (0.3-1.2); Blood Urea Nitrogen 15 mg/dL (9-23); Calcium 9.2 mg/dL (8.3-10.6); Calcium (Corrected) 9.2 mg/dL (8.5-10.1); Carbon Dioxide 25.9 mMol/L (20.0-31.0); Chloride 104 mMol/L (98-107); Creatinine (Component) 1.2 mg/dL (0.6-1.3); Estimated Creatinine Clearance 64.6 mL/min (>60); Glucose 101 mg/dL (74-106); Lipase 33 U/L (12-53); Osmolality,Calculated 274 (275-295); Potassium 4.8 mMol/L (3.4-5.1); Sodium 137 mMol/L (136-145); Total Protein 8.5 gm/dL (5.7-8.2); Troponin I < 0.020 ng/mL (0.0-0.045); eGFR > 60 See Note
--- NOTE | 2025-03-14 04:21 | EDNOTE_ITS ---
ED Abdominal Pain RME/HPI General Chief Complaint: Abdominal Pain Stated complaint: ABD PAIN X 3DAYS Time seen by provider: 03/14/25 00:05 Arrival date/time: 03/13/25 23:38 Limitations: no limitations RME / HPI RME / HPI narrative: 03/13/25 23:38 59 yo m present to Ed for c/o of abd pain for 2 days. I have greeted and performed a focused initial assessment of this patient. A comprehensive ED assessment and evaluation of the patient, analysis of all test results, and completion of the medical decision making process will be conducted by additional ED providers. ------- Dr. Tam's Main ED Evaluation: 59yo male with a history of cirrhosis s/p TIPS, cholecystectomy presents to the ED for a chief complaint of epigastric pain x yesterday. No radiation or migration. Patient states he's had a hernia for the last 1 year, reporting it's been popping out more the last 2 weeks. He states his pain significantly worsened tonight, so he came in for evaluation. He is passing gas. He denies any N/V, constipation, hematemesis or any other associated symptoms. Denies any current tobacco or alcohol use. Related Data Home Medications ?Medication ?Instructions ?Recorded ?Confirmed albuterol sulfate 90 mcg/actuation 2 puff inhalation Q 6H PRN 09/02/22 11/21/24 aerosol inhaler Shortness Of Breath Or Wheez ing gabapentin 400 mg capsule 400 mg PO Q8H 09/02/2209/02 levothyroxine 150 mcg tablet 175 mcg PO QDAY 09/02/22 11/21/24 lidocaine 5 % topical patch See Rx Instructions .Route .COMPLEX 09/02/22 09/02/22 nystatin 100,000 unit/gram topical See Rx Instructions .Route .COMPLEX 09/02/22 09/02/22 cream tizanidine 4 mg tablet 4 - 8 mg PO QPM 09/02/22 Previous Rx's ?Medication ?Instructions ?Recorded naloxone 4 mg/actuation nasal 4 mg intranasal Q3M PRN opioid 09/15/22 spray (Narcan) overdose #2 ea Allergies Allergy/AdvReac Type Severity Reaction Status Date / Time codeine AdvReac Mild NAUSEA/VOMI Verified 03/14/25 00:19 TING Review of Systems Review of Systems Systems Reviewed: All systems reviewed, normal except as documented Past Medical History Past Medical History NEUROLOGIC: Negative Neurological Disorders or Seizures CARDIAC: Negative Cardiac Disorders, Myocardial Infarction, Hypercholesterolemia, Congestive Heart Failure, Hypertension or Hypotension RESPIRATORY: Negative Chronic Obstructive Pulmonary Disease (COPD) or Asthma GASTROINTESTINAL: Positive Gastrointestinal Disorders and Cirrhosis; Negative Hepatitis GENITOURINARY: Negative Genitourinary Disorders or Renal Disease REPRODUCTIVE: Negative Testicular Cancer MUSCULOSKELETAL: Negative Musculoskeletal Disorders ENDOCRINE: Positive Endocrine Disorders and Hypothyroidism; Negative Diabetes Mellitus Type 1 or Diabetes Mellitus Type 2 HEMATOLOGIC: Negative Blood Disorders or Sickle Cell Disease OTHER HISTORY: Positive Blood Transfusions and Chicken Pox; Negative Falls, Blood Transfusion Reaction, Anesthesia Reactions, MRSA, Human Immunodeficiency Virus (HIV), Measles, Mumps, Rubella ([place] Measles), Pertussis, Clostridium Difficile, Cancer or Testicular Cancer Family History FAMILY HISTORY: Positive Family Cancer Surgical History SURGICAL: Positive Abdominal Surgery; Negative Endocrine Surgery Social History SMOKING STATUS: Current some day smoker SECOND HAND EXPOSURE: No (smoking for couple of years- Quit 5 days ago) ED Exam General Limitations: Present no limitations General appearance: Present alert and other (appears uncomfortable) Head Head exam: Present atraumatic Eye Eye exam: Present normal appearance, PERRL and EOMI ENT ENT exam: Present normal exam, normal oropharynx and mucous membranes moist Neck Neck exam: Present normal inspection, full ROM and trachea midline Chest Chest inspection: Present normal inspection and symmetric chest wall rise Respiratory Respiratory exam: Present normal lung sounds bilaterally Cardiovascular Cardiovascular exam: Present regular rate, normal rhythm and normal heart sounds Abdominal Exam Abdominal exam: Present soft, guarding and other (3-4 cm area at the RUQ that is reducible, but pops right back out without any redness or discoloration); Absent rebound Extremities Exam Extremities exam: Present normal inspection and full ROM Back Exam Back exam: Present normal inspection and full ROM Neurological Exam Neurological exam: Present alert, oriented X3 and CN II-XII intact Psychiatric Psychiatric exam: Present normal affect and normal mood Skin Skin exam: Present warm, dry, intact and normal color Course Quality Measures none Orders Category Date Time Status CT Screening NOW Care 03/14/25 00:08 Active EKG (ED ONLY) *Do not use* NOW Care 03/14/25 00:[address] abdomen pelvis w con Stat Exams 03/14/25 00:07 Taken EKG (ED Only) Stat Exams 03/14/25 00:07 Ordered CBC Stat Lab 03/14/25 00:55 Completed CMP [Comprehensive Metabolic Panel] Stat Lab 03/14/25 00:55 Completed Lactic Acid [Lactate (Lactic Acid)] Stat Lab 03/14/25 00:55 Completed Lipase Stat Lab 03/14/25 00:55 Completed Troponin I Stat Lab 03/14/25 00:55 Completed UA [Urinalysis] Stat Lab 03/14/25 00:08 Ordered HYDROcodone/APAP 10/325 [Panther 10/325] Med 03/14/25 00:08 Discontinued 1 tab PO X1 ONE Morphine Inj Med 03/14/25 04:11 Discontinued 4 mg IVP X1 ONE Ondansetron Inj [Zofran Inj] Med 03/14/25 04:12 Discontinued 4 mg IV X1 ONE Vital Signs Vital signs: Vital Signs Temperature 100.1 F 03/14/25 00:00 Pulse Rate 88 03/14/25 00:00 Respiratory Rate 20 03/14/25 00:00 Blood Pressure 118/74 03/14/25 00:00 Pulse Oximetry (%) 97 03/14/25 00:00 Oxygen Delivery Method Room Air 03/14/25 00:00 Abdominal Pain MDM MDM Narrative MDM Narrative:: Scribe Attestation: 03/14/25 Yanna Amaya am scribing for and in the presence of Dr. Tam. Patient data External records reviewed:: [facility] previous records (Per chart review, patient was admitted here on 11/19/24 for abdominal pain.) Clinical information provided by:: patient Social determinants that could affect healthcare access:: none Patient has the following chronic illnesses:: cirrhosis How is presenting disease/condition affected by chronic disease/condition?: uneffected by Evaluation data The following diagnostics were reviewed and interpreted by me:: lab results and radiology exam(s) Lab and/or radiology exams considered but not ordered:: none Interpretation Summary: WBC count is 1.7, CMP is normal, Lipase is normal, according to my interpr etation. EKG done at 0000, NSR, rate of 88, T-wave inversion in lead III, no ST elevations or depressions, no STEMI, according to my interpretation. CT abdomen pelvis pending at sign out. Medications / Prescriptions Medications or Prescriptions considered but not ordered:: none Medication administrations:: Medication Administration History Discontinued Medications Hydrocodone Bitart/Acetaminophen (Hydrocodone/Apap 10/325 Tab) 1 tab PO X1 ONE Stop: 03/14/25 00:09 Last Admin: 03/14/25 01:42 Dose: 1 tab Documented By: MITALI Morphine Sulfate (Morphine Sulf Inj 10 Mg/Ml Vial) 4 mg IVP X1 ONE Stop: 03/14/25 04:12 Last Admin: 03/14/25 04:22 Dose: 4 mg Documented By: MIKEY Ondansetron HCl (Ondansetron Inj 2 Mg/Ml Inj 2 Ml) 4 mg IV X1 ONE; Protocol Stop: 03/14/25 04:13 Last Admin: 03/14/25 04:22 Dose: 4 mg Documented By: MIKEY see above Consultations Consultation(s) initiated? (list below): No Diagnosis Differential diagnosis abdominal pain: pancreatitis, small bowel obstruction and other (umbilical hernia, incarcerated hernia, worsening of cirrhosis) Most likely diagnosis given after review of the tests above:: final dx pending at sign out Admission Indicated Admission indicated?: not indicated Admission Request Was there a request for admission?: No Disposition Plan Disposition Plan: other (specify) (Signed out to Dr. Barkley at [address] abdomen pelvis.) Discharge Plan Prescriptions/Referrals Prescriptions/Med Rec: No Action tizanidine 4 mg tablet 4 - 8 mg PO QPM Patient Comments: TAKE 1 TO 2 TABLETS BY MOUTH EVERY EVENING AT BED TIME gabapentin 400 mg capsule 400 mg PO Q8H Patient Comments: TAKE ONE CAPSULE BY MOUTH EVERY 8 HOURS nystatin 100,000 unit/gram cream See Rx Instructions .ROUTE .COMPLEX Patient Comments: APPLY topically THREE TIMES DAILY Rx Instructions: APPLY TOPICALLY THREE TIMES A DAY lidocaine 5 % adhesive patch,medicated See Rx Instructions .ROUTE .COMPLEX Patient Comments: APPLY ONE PATCH FOR 12 hours AND 12 hours off Rx Instructions: APPLY 1 PATCH FOR 12 HOURS AND 12 HOURS OFF levothyroxine 150 mcg tablet 175 mcg PO QDAY Patient Comments: TAKE ONE TABLET BY MOUTH EVERY DAY IN THE MORNING FOR THYROID albuterol sulfate 90 mcg/actuation HFA aerosol inhaler 2 puff INHALATION Q6H PRN (Reason: Shortness Of Breath Or Wheezing) Patient Comments: INHALE TWO PUFFS BY MOUTH EVERY 6 HOURS NEEDED naloxone [Narcan] 4 mg/actuation spray,non-aerosol 4 mg intranasal Q3M PRN (Reason: opioid overdose) Qty: 2 0RF Rx Instructions: spray 1 dose into ONE nostril; alternate nostrils w each dose Referrals: Khalif Chapa MD [Primary Care Provider] - In 1 week Problem List Clinical Impression: Abdominal pain, Hernia Patient/Caregiver Discharge Instructions Print Language: Vietnamese
[2025-03-14] MEDS: MORPHINE SULF INJ 10 MG/ML VIAL 4 MG IVP (04:22)
[2025-03-14] MEDS: ONDANSETRON INJ 2 MG/ML INJ 2 ML 4 MG IV (04:22)
--- NOTE | 2025-03-14 06:13 | EDNOTE_ITS ---
Emergency Room Addendum <Carmen Barrera - Last Filed: 03/14/25 08:13> Addendum Narrative: 0600: Care assumed from Dr. Lee, the previous shift emergency physician. Past medical, surgical, social and family history reviewed. Vitals and home medications reviewed. I will assume the care of the patient at this time, pending CT abdomen pelvis and final disposition. Please refer to the emergency department record for history and examination from initial visit.? Physical exam by me shows patient under no acute distress at this time. On reevaluation of the patient this morning the patient has continued upper abdominal pain. CT scan came back positive for inflamed duodenum and presumably an ulcer. There is no free fluid. His spleen is increased in size he has got cirrhosis and he is also status evidence of portal hypertension. It is unclear why he is having so much abdominal pain but evidently his duodenum is quite inflamed. 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 He has never drank. Or going to call Dr. Harmon to consult and admit him for intractable abdominal pain. Unfortunate Dr. Harmon is not available today and Dr. Walters who is not on-call is in town and states he would be able to consult and perform endoscopy if needed since the patient has significant duodenitis and intractable abdominal pain. I then called the hospitalist on-call got the resident Dr. Villatoro discussed the case and he will be admitting for intractable pain. Labs show neutropenia which has been chronic. Hemoglobin 11.2 got thrombocytopenia with a platelet count of 55,000 which is similar to the past. Electrolytes are within normal as renal function is good transaminases are ne gative but total bilirubin is normal. Lactic acid is 1.2. Urinalysis is quite dry with specific gravity of 1044. Will give him some IV fluids while awaiting. The CT report is as follows with duodenitis as the leading diagnosis causing intractable pain. Because of this he should be admitted for endoscopy and that is why Dr. Walters was called and agrees to provide the services. RADIOLOGY Procedure(s): CT abdomen pelvis w con Accession Number(s): [id number] cc: Khalif Chapa MD; Arturo Shoemaker MD; Dino Lane PA-C~ Examination: CT abdomen with intravenous contrast CT pelvis with intravenous contrast 2-D coronal reconstructions 2-D sagittal reconstructions Date and time of exam:March 17, 2025 0435 hrs. Comparison November 19, 2024 Indications: Abdominal pain beginning 3 days ago, history of ulcer, history hernia. CTDI: vol (mGy) 6.49 DLP: (mGycm) 398 Technique: Multiple axial sections of the abdomen and pelvis have been obtained. 64 slice high-resolution scanner used. 3 mm axial sections have been obtained, post intravenous injection 60 cc [id number] 2-D sagittal, coronal reconstructions obtained. Low dose protocols were performed. One or more of the following dose reduction techniques were used; automated exposure control, adjustment of the mA and/or KV according to patient size, use of iterative reconstruction technique. Findings: Cirrhosis, liver irregular in contour with portacaval scans Edema involving the stomach and duodenum Prominent splenomegaly Portosystemic collateral vessels medial to the spleen Perigastric varices No hydronephrosis No bowel obstruction Normal appendix No diverticulitis Urinary bladder intact No prostatomegaly Moderate osteopenia Impression: Gastritis pattern Active peptic disease duodenum Cirrhosis Prominent splenomegaly Portal hypertension Perigastric varices Dictated By: Arturo Shoemaker MD <Tunde Barkley MD - Last Filed: 03/14/25 08:15> Addendum Narrative: 0600: Care assumed from Dr. Lee, the previous shift emergency physician. Past medical, surgical, social and family history reviewed. Vitals and home medications reviewed. I will assume the care of the patient at this time, pending CT abdomen pelvis and final disposition. Please refer to the emergency department record for history and examination from initial visit.? Physical exam by me shows patient under no acute distress at this time. On reevaluation of the patient this morning the patient has continued upper abdominal pain. CT scan came back positive for inflamed duodenum and presumably an ulcer. There is no free fluid. His spleen is increased in size he has got cirrhosis and he is also status evidence of portal hypertension. It is unclear why he is having so much abdominal pain but evidently his duodenum is quite inflamed. 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 He has never drank. Or going to call Dr. Harmon to consult and admit him for intractable abdominal pain. Unfortunate Dr. Harmon is not available today and Dr. Walters who is not on-call is in town and states he would be able to consult and perform endoscopy if needed since the patient has significant duodenitis and intractable abdominal pain. I then called the hospitalist on-call got the resident Dr. Villatoro discussed the case and he will be admitting for intractable pain. Labs show neutropenia which has been chronic. Hemoglobin 11.2 got thrombocytopenia with a platelet count of 55,000 which is similar to the past. Electrolytes are within normal as renal function is good transaminases are negative but total bilirubin is normal. Lactic acid is 1.2. Urinalysis is quite dry with specific gravity of 1044. Will give him some IV fluids while awaiting. The CT report is as follows with duodenitis as the leading diagnosis causing intractable pain. Because of this he should be admitted for endoscopy and that is why Dr. Walters was called and agrees to provide the services.
--- NOTE | 2025-03-14 06:23 | PRELIM_ITS ---
CT scan of the abdomen and pelvis with intravenous contrast (axial sections with sagittal and coronal reformats) March 14, 2025 0435 hours Clinical History: abd pain worsen 2 days. hx of ulcer and hernia Comparison: No prior study is available for comparison. Findings: The lung bases are clear. Liver cirrhosis is noted. Status post TIIPS is noted. Moderate to marked splenomegaly. Dilated portal vein with multiple dilated perisplenic portosystemic collaterals. The gallbladder is surgically absent. Mild intra and extrahepatic biliary ductal dilatation, of unclear significance in the postcholecystectomy state. The pancreas, kidneys and adrenals are unremarkable. There is wall thickening of first and second duodenal segment with surrounding mild edema and fat stranding suggestive of duodenitis/ ulcer. No evidence of bowel obstruction. The appendix is within normal limits (Coronal images 78/155 ). A moderate amount of fecal material is present in the colon. There is no mesenteric or retroperitoneal adenopathy. The urinary bladder is unremarkable. There is moderate prostatomegaly with calcifications. There is atheromatous calcification of aorta and common iliac arteries. There is no free air. Minimal perihepatic and pelvic free fluid is noted. Degenerative changes are identified in the spine. There is diffuse osteopenia. Multilevel Schmoral's nodes are noted. Impression: Wall thickening of first and second duodenal segment with surrounding mild edema and fat stranding suggestive of duodenitis/ ulcer. Recommend clinical correlation. Liver cirrhosis . Marked splenomegaly and portal hypertension. Other findings as described above. Report Electronically Signed By: Sean Espinosa 03/14/2025 6:22:58 AM [EST]
[2025-03-14 07:19] LABS: Collection Type, Urine Voided; Squamous Epithelial Cell,Urine 0 /hpf (0-5)
[2025-03-14 07:25] LABS: Bilirubin,Urine Negative (Negative); Blood,Urine Negative (Negative); Clarity,Urine Clear (Clear/Hazy); Color,Urine Yellow (Lt Yel-Yel); Glucose, Urine Negative (Negative); Ketones,Urine Negative (Negative); Leukocyte Esterase,Urine Negative (Negative); Nitrite,Urine Negative (Negative); Protein,Urine Trace (Neg - Trace); RBC,Urine 2 /hpf (0-3); Specific Gravity,Urine 1.044 (1.001-1.035); WBC,Urine 1 /hpf (0-5)
--- NOTE | 2025-03-14 07:43 | PC.CC ---
0746-Received call from ED, hold transfer, Dr. Walters to evaluate patient. 0734-Received request for transfer. Request for GI, no GI today. Pt seen at [facility] for Duodenitis.
[2025-03-14] MEDS: MORPHINE SULF INJ 10 MG/ML VIAL 5 MG IVP ×2 (08:23→11:17)
[2025-03-14] MEDS: PANTOPRAZOLE INJ 40 MG VIAL IVP (08:24)
[2025-03-14] MEDS: SODIUM CHLORIDE 0.9% 500 ML 500 ML 999 ML IV (08:30)
[2025-03-14] MEDS: SODIUM CHLORIDE 0.9% 1000 ML 1,000 ML 150 ML IV (08:30)
[2025-03-14] MEDS: PANTOPRAZOLE/NS 80MG IV PREMIX 80 MG/100 ML BAG 10 MG IV (08:31)
--- NOTE | 2025-03-14 09:21 | PC.CC ---
0922- Transfer was cancelled. PT to be admitted for endoscopy, Dr. Walters was called by Dr. Barkley and agrees to provide the services.
[2025-03-14 10:12] LABS: Lactate (Lactic Acid) 0.9 mMol/L (0.4-2.0)
--- NOTE | 2025-03-14 10:18 | PC.NURSE ---
SPOKE TO DR. BE AND MADE AWARE PT'S RECTAL TEMP OF 101.2; PER DR. BE, WILL PUT NEW ORDERS IN.
[2025-03-14] MEDS: ACETAMINOPHEN 325 MG TABLET PO (10:26)
[2025-03-14] MEDS: MG HYD/AL HYD/SIME (Maalox Reg) SUSP 30 ML UDC PO ×3 (11:17→20:44)
--- NOTE | 2025-03-14 11:43 | ESHP_ITS ---
Documentation for date of: 03/14/25 HPI History of Present Illness History of present illness: Mr. Hodgson is a 59 year old male with past medical history significant for cirrhosis (status post TIPS with stent placement 20 years ago at [place]) secondary to chronic hep C, hypothyroidism, peptic ulcer disease presented to the ED complaining of epigastric abdominal pain. Pt states he has been having severe abdominal pain for the last few days which has progressively worsened causing him to have nausea vomiting this morning. Patient states that he has had similar episodes in the past and has been diagnosed with peptic ulcer disease and from time to time he gets episodes of severe abdominal pain that is refractory to [id number] pain medications at home. Patient denies any hematemesis, melena or hematochezia patient denies any constipation or diarrhea. ED course In the ED initial vitals include blood pressure 118/74, pulse 88, respirations 20 and temperature 100.1 patient saturating on room air. Significant labs include: WBC 1.7, hemoglobin 11.2, hematocrit 34.4, platelet 55, troponin 1 <0.020, lipase 33 lactic acid 0.9 Pt's previous labs from 11/23/24 is postive for Hepatitis C antibody ED spoke to Dr. Walters prior to admission by hospitalist team and he recommended to admit the patient and order H. Pylori Images: CT of abdomen/Pelvis- Gastritis pattern, Active peptic disease duodenum, Cirrhosis, Prominent splenomegaly Portal hypertension, Perigastric varices, Edema involving the stomach and duodenum CRX: No pneumonia or edema PMH: As above PSH: TIPS 20 years ago, cholecystectomy Home Meds: Trazodone 50, pantoprazole delayed release, Synthroid 175, oxycodone Allergies: No known allergies Family history: History of heart disease in father Social history: Pt states he quit smoking 3 weeks and only had smoked half pack for 2 years, denies alcohol and drug use Review of Systems Review of Systems Systems Reviewed: All systems reviewed, normal except as documented Exam Vital Signs Temp Pulse Resp BP Pulse Ox O2 Del Method 101.2 F H 81 17 118/76 95 Room Air 03/14/25 10:26 03/14/25 10:16 03/14/25 10:16 03/14/25 10:16 03/14/25 10:16 03/14/25 10:16 Narrative Exam GENERAL: A&Ox3 . Awake, thin male appears to be in acute distress due to pain NEURO: no focal neurological deficits notes HEENT: Atraumatic, Normocephalic. mucous membranes moist. Eyes open, symmetrical, & clear HEART: Normal Heart Sounds LUNGS: Bilateral wheezing heard ABDOMEN: soft, non-distended, tenderness in the epigastrium, bowel sounds heard, no guarding or rebound tenderness, Pt has a small round buldge at LUQ SKIN: No Rash or ecchymoses, dry skin noted bilaterally on LE EXTREMITIES: No edema, tenderness, able to move all 4 extremities, pedal pulses palpated Results: Labs 03/15/25 04:35 03/15/25 04:35 Labs: Short CBC 03/14/25 Range/Units 00:55 WBC 1.7 L (3.8-10.6) Thou/mm3 Hgb 11.2 L (13.5-16.0) g/dL Hct 34.4 L (41.0-53.0) % Plt Count 55 L (140-440) Thou/mm3 BMP 03/14/25 00:55 Sodium 137 Potassium 4.8 Chloride 104 Carbon Dioxide 25.9 BUN 15 Creatinine 1.2 Glucose 101 Calcium 9.2 Cardiac Enzymes 03/14/25 Range/Units 00:55 Troponin I < 0.020 (0.0-0.045) ng/mL Liver Function 03/14/25 Range/Units 00:55 Total Bilirubin 0.9 (0.3-1.2) mg/dL AST 25 (0-34) U/L ALT 8 L (10-49) U/L Alkaline Phosphatase 65 (46-116) U/L Albumin 4.5 (3.4-4.8) gm/dL Urine 03/14/25 Range/Units 07:07 Urine Color Yellow (Lt Yel-Yel) Urine Clarity Clear (Clear/Hazy) Urine pH 6.0 (5.0-7.0) Ur Specific [place] 1.044 H (1.001-1.035) Urine Protein Trace (Neg - Trace) Urine Glucose (UA) Negative (Negative) Quality Measures Quality Measures none Medications Home Medications and Allergies Home Medications ?Medication ?Instructions ?Recorded ?Confirmed ?Type albuterol sulfate 90 mcg/actuation 2 puff inhalation Q 6H PRN 10/04/22 12/23/24 History aerosol inhaler Shortness Of Breath Or Wheez ing gabapentin 400 mg capsule 400 mg PO Q8H 09/02/2209/02 History levothyroxine 150 mcg tablet 175 mcg PO QDAY 09/02/22 11/21/24 History lidocaine 5 % topical patch See Rx Instructions .Route .COMPLEX 09/02/22 09/02/22 History nystatin 100,000 unit/gram topical See Rx Instructions .Route .COMPLEX 09/02/22 09/02/22 History cream tizanidine 4 mg tablet 4 - 8 mg PO QPM 09/02/22 History Allergies Allergy/AdvReac Type Severity Reaction Status Date / Time codeine AdvReac Mild NAUSEA/VOMI Verified 03/14/25 00:19 TING Visit Medications Acetaminophen (Acetaminophen 325 Mg Tablet) 325 mg PO Q6HR PRN PRN Reason: Pain 1-3, Fever Stop: 04/13/25 09:40 Last Admin: 03/14/25 10:26 Dose: 325 mg Al Hydrox/Mg Hydrox/Simethicone (Mg Hyd/Al Hyd/Viviana (Maalox Reg) Susp 30 Ml Udc) 30 ml PO QID [facility] Stop: 04/13/25 11:59 Last Admin: 03/14/25 11:17 Dose: 30 ml Pantoprazole Sodium (Protonix/Ns 80mg Iv Premix) 80 mg in 100 mls @ 10 mls/hr IV X1 ONE Stop: 03/14/25 17:50 Last Admin: 03/14/25 08:31 Dose: 10 mls/hr Sodium Chloride (Ns) 1,000 mls @ 150 mls/hr IV .Q6H40M ONE Stop: 03/14/25 14:51 Last Admin: 03/14/25 08:30 Dose: 150 mls/hr Morphine Sulfate (Morphine Sulf Inj 10 Mg/Ml Vial) 1 mg IVP Q6HR PRN PRN Reason: pain 6-10 Stop: 03/19/25 09:42 Pantoprazole Sodium (Pantoprazole Inj 40 Mg Vial) 40 mg IVP QDAY [facility] Stop: 04/14/25 08:59 Discontinued Medications Acetaminophen (Acetaminophen 325 Mg Tablet) 325 mg PO Q6HR PRN PRN Reason: ABDOMINAL CRAMPING Stop: 04/13/25 09:40 Hydrocodone Bitart/Acetaminophen (Hydrocodone/Apap 10/325 Tab) 1 tab PO X1 ONE Stop: 03/14/25 00:09 Last Admin: 03/14/25 01:42 Dose: 1 tab Sodium Chloride (Ns) 500 mls @ 999 mls/hr IV .Q31M ONE Stop: 03/14/25 08:42 Last Infusion: 03/14/25 09:30 Dose: Infused Morphine Sulfate (Morphine Sulf Inj 10 Mg/Ml Vial) 4 mg IVP X1 ONE Stop: 03/14/25 04:12 Last Admin: 03/14/25 04:22 Dose: 4 mg Morphine Sulfate (Morphine Sulf Inj 10 Mg/Ml Vial) 5 mg IVP X1 ONE Stop: 03/14/25 07:23 Last Admin: 03/14/25 08:23 Dose: 5 mg Morphine Sulfate (Morphine Sulf Inj 10 Mg/Ml Vial) 5 mg IVP X1 ONE Stop: 03/14/25 07:51 Last Admin: 03/14/25 11:17 Dose: 5 mg Ondansetron HCl (Ondansetron Inj 2 Mg/Ml Inj 2 Ml) 4 mg IV X1 ONE; Protocol Stop: 03/14/25 04:13 Last Admin: 03/14/25 04:22 Dose: 4 mg Pantoprazole Sodium (Pantoprazole Inj 40 Mg Vial) 40 mg IVP X1 ONE Stop: 03/14/25 07:51 Last Admin: 03/14/25 08:24 Dose: 40 mg Assessment & Plan Plan Mr. Hodgson is a 59 year old male with past medical history significant for cirrhosis (status post TIPS with stent placement 20 years ago at [place]) secondary to chronic hep C, hypothyroidism, peptic ulcer disease presented to the ED complaining of epigastric abdominal pain. #Intractable abdominal pain #Duodenitis #History of peptic ulcer disease -Patient presented with epigastric pain for a few days with nausea and vomiting -Patient has history of peptic ulcer disease and takes Protonix at home -CT abdomen pelvis shows peptic ulcer disease, Edema involving the stomach and duodenum, Gastritis pattern, perigastric varices Plan: -Pain control with [place] and Morphine PRN -Pantoprazole daily -Peptic ulcer diet -GI specialist Dr. Walters consulted, appreciate recommendations #Fever, in the setting of #Pancytopenia -WBC 1.7, RBC 4.29, Plt 55, Neurophil # 1200, while in the ED pt had a fever 101.2 -CXR- negative for pneumonia and UA is clean Plan: -Blood cultures are ordered -Pt is started on broad spectrum antibiotics with Zosyn and doxycycline 03/14- #Cirrhosis #Thrombocytopenia #Splenomegaly -Cirrhosis secondary to hepatitis C infection but did complete antiviral therapy over a decade ago, previously managed at [place] with Dr. Saucedo -Signs of synthetic liver dysfunction with platelets 55, anemia -History of TIPS surgery more than 20 years ago (done in the late ) -Previously was evaluated for liver transplant -Splenomegaly evident on imaging Plan: -Monitor daily CBC, liver function tests, and avoid hepatotoxic agents. #History of hypothyroidism -resume home levothyroxine 175 mcg #Hx of insomnia -will resume home trazodone 50 mg after med rec #Hx of Asthma -Duonebs ordered Health Maintenance Disposition: Med- telemetry DVT Prophylaxis: SCD QSHIFT GI Prophylaxis: Pantoprozol-40 IVQday Diet:PUD diet Lines: Peripheral lines Code status: Full Assessment and plan discussed with my attending physician Dr. Heath Magaña (PGY-1)- Internal medicine resident Attending Provider Attestation/Addendum I attest that I was physically present for the evaluation, physical examination, lab and imaging review of the patient with the residents. I discussed the case with the residents and agree with the findings and plans of care as documented above. Haley Joe MD
--- NOTE | 2025-03-14 12:00 | XR_ITS ---
Examination: AP chest single view Technique one AP portable sitting chest single view Exam date and time: March 14, 2025 1227 hours Comparison November 25, 2024 INDICATIONS: Fever weakness today. FINDINGS: Normal heart size No pneumonia or pulmonary edema Prominent osteopenia IMPRESSION: No pneumonia or pulmonary edema
--- NOTE | 2025-03-14 13:57 | PC.NURSE ---
PT CURRENTLY SLEEPING ON GURNEY AT THIS TIME. NO DISTRESS NOTED. PT COULD NOT EAT MUCH LUNCH DUE TO PAIN WITH EATING. VSS
--- NOTE | 2025-03-14 15:42 | PC.NURSE ---
REPORT GIVEN TO NURSE OLGA GOYAL ON MED/TELE FLOOR. NURSE WILL RESUME CARE FOR PT. PT STABLE FOR TRANSFER.
[2025-03-14] MEDS: MORPHINE SULF INJ 10 MG/ML VIAL IVP (16:29)
[2025-03-14] MEDS: PIPER/TAZO 3.375 GM PREMIX 3.375 GM/50 ML BAG IV ×2 (17:56→22:04)
--- NOTE | 2025-03-14 18:42 | PC.NURSE ---
spoke with Dr. Sim re: pt's cont'd c/o epigastric pain after morphine dose given
[2025-03-14] MEDS: ALBUTEROL/IPRATROPIUM (Duoneb) RT SOL 3 ML NEBU INH (18:51)
[2025-03-14] MEDS: MORPHINE SULF INJ 10 MG/ML VIAL 2 MG IVP (19:43)
--- NOTE | 2025-03-14 19:55 | PC.NURSE ---
Dr. Sim discontinued morphine 1mg q6h and switched it to morphine 1mg q4. Dr. Sim also ordered morphine 2mg x1. RN contacted pharmacy to ask if 1x order of morphine was okay to give because the last dose was given at 1629. Gino from pharmacy said it is okay to give.
[2025-03-14] MEDS: DOXYCYCLINE INJ 100 MG in SODIUM CHLORIDE 0.9% (POP) 100 ML IV (20:40)
[2025-03-14] MEDS: SUCRALFATE 1 GM TABLET PO (20:44)
[2025-03-15] VITALS (11 sets, daily range): BP systolic 105–120; BP diastolic 70–80; PULSE 60–83; RESP 16–21; TEMP 36.1–36.8; O2SAT 94–100
[2025-03-15] MEDS: ALBUTEROL/IPRATROPIUM (Duoneb) RT SOL 3 ML NEBU INH ×4 (00:17→18:55)
[2025-03-15] MEDS: MORPHINE SULF INJ 10 MG/ML VIAL IVP ×5 (02:19→21:17)
[2025-03-15] MEDS: PIPER/TAZO 3.375 GM PREMIX 3.375 GM/50 ML BAG IV ×3 (05:11→21:17)
[2025-03-15] MEDS: SUCRALFATE 1 GM TABLET PO ×4 (05:14→20:30)
[2025-03-15] MEDS: LEVOTHYROXINE SODIUM 125 MCG, LEVOTHYROXINE SODIUM 50 MCG 175 MCG PO (05:14)
[2025-03-15] MEDS: MG HYD/AL HYD/SIME (Maalox Reg) SUSP 30 ML UDC PO ×4 (05:15→20:29)
[2025-03-15 06:27] LABS: Basophils % (Auto) 1 % (0-2.5); Eosinophils % (Auto) 2 % (0-10); Hematocrit 30.7 % (41.0-53.0); Hemoglobin 9.7 g/dL (13.5-16.0); Immature Granulocytes % (Auto) 0 % (0-0); Lymphocytes # (Auto) 0.3 Thou/mm3 (1.0-4.8); Lymphocytes % (Auto) 24 % (10-50); Mean Corpuscular HGB Conc 31.6 g/dl (31.0-37.0); Mean Corpuscular Hemoglobin 26.4 pg (25.0-35.0); Mean Corpuscular Volume 83 fL (80-100); Monocytes # (Auto) 0.2 Thou/mm3 (0.0-0.8); Monocytes % (Auto) 13 % (0-12); Neutrophils # (Auto) 0.8 Thou/mm3 (1.8-7.7); Neutrophils % (Auto) 61 % (37-80); Nucleated Red Blood Cell % 0 /100 WBC (0); RDW Standard Deviation 48.4 fL (35.1-43.9); Red Blood Count 3.68 Miln/mm3 (4.50-5.90)
[2025-03-15 06:34] LABS: Platelet Count 52 Thou/mm3 (140-440); White Blood Count 1.2 Thou/mm3 (3.8-10.6)
[2025-03-15 06:48] LABS: Alanine Aminotransferase < 7 U/L (10-49); Albumin, Serum 3.5 gm/dL (3.4-4.8); Albumin/Globulin Ratio 1.1 (1.2-2.2); Alkaline Phosphatase 53 U/L (46-116); Anion Gap 5 (7-16); Aspartate Amino Transferase 20 U/L (0-34); BUN/Creatinine Ratio 14 Ratio (12-20); Bilirubin,Total 0.5 mg/dL (0.3-1.2); Blood Urea Nitrogen 18 mg/dL (9-23); Calcium 8.4 mg/dL (8.3-10.6); Calcium (Corrected) 8.8 mg/dL (8.5-10.1); Chloride 108 mMol/L (98-107); Creatinine (Component) 1.3 mg/dL (0.6-1.3); Estimated Creatinine Clearance 59.7 mL/min (>60); Globulin 3.2 gm/dL (2.3-3.5); Glucose 112 mg/dL (74-106); Osmolality,Calculated 280 (275-295); Potassium 4.1 mMol/L (3.4-5.1); Sodium 139 mMol/L (136-145); Total Protein 6.7 gm/dL (5.7-8.2); eGFR > 60 See Note
--- NOTE | 2025-03-15 08:47 | ESPR_ITS ---
<Statement entered by Mumtaz Sanchez MD - 03/16/25 07:36> Senior Resident Attestation: I supervised/discussed management plan with music industry intern physician Dr. Magaña, and was involved in the care of this patient. I personally saw and examined the patient and discussed the assessment and plan with the entire medicine team, including my attending. I agree with the assessment and plan as documented. Patient continues to complain of epigastric abdominal pain. H. pylori is pending. GI is following. Continue current management and monitor the patient. Patient's care was discussed with attending physician, Dr. Agrawal. Mumtaz Sanchez MD PGY-2. Documentation for date of: 03/15/25 Subjective Subjective Interval history: No acute overnight events. Patient seen and examined at bedside this morning patient continues to complain of severe epigastric pain states that the pain is 10 out of 10. Denies any nausea or vomiting patient states that he did notice streaks of dark blood in his stool but is unsure. Patient denies hematochezia or history of hematemesis. Patient states that he has never been tested for H. pylori. Per GI recommendation H. pylori is ordered and patient will be n.p.o. after midnight he will have EGD tomorrow. Blood cultures are pending patient's vitals and labs are stable patient has no other complaints. Exam Vital Signs Temp Pulse Resp BP Pulse Ox O2 Del Method 97.0 F 78 16 120/78 95 Room Air 03/15/25 08:00 03/15/25 08:00 03/15/25 08:00 03/15/25 08:00 03/15/25 08:00 03/15/25 08:00 Narrative Exam GENERAL: A&Ox3 . Awake, Not in acute distress NEURO: no focal neurological deficits HEENT: Atraumatic, Normocephalic. mucous membranes moist. Eyes open, symmetrical, & clear HEART: Normal Heart Sounds LUNGS: Clear to auscultation with no wheezing or crackles. ABDOMEN: soft, non-distended, non-tender, bowel sounds heard, no guarding or rebound tenderness SKIN: No Rash or ecchymoses EXTREMITIES: No edema, tenderness, able to move all 4 extremities, pedal pulses palpated Objective Labs 03/16/25 04:41 03/16/25 04:41 Labs: Laboratory Results - last 24 hr 03/14/25 03/15/25 09:55 04:35 WBC 1.2 L RBC 3.68 L Hgb 9.7 L Hct 30.7 L MCV 83 MCH 26.4 MCHC 31.6 RDW Std Deviation 48.4 H Plt Count 52 L Neut % (Auto) 61 Lymph % (Auto) 24 [place] % (Auto) 13 H Eos % (Auto) 2 Baso % (Auto) 1 Neut # (Auto) 0.8 L Lymph # (Auto) 0.3 L [place] # (Auto) 0.2 Eos # (Auto) 0.0 Baso # (Auto) 0.0 Immature Gran # (Auto) 0.00 Absolute Nucleated RBC 0.00 Immature Gran % 0 Nucleated RBC % 0 Sodium 139 Potassium 4.1 D Chloride 108 H Carbon Dioxide 26.0 Anion Gap 5 L BUN 18 Creatinine 1.3 Estim Creat Clear Calc 59.7 L eGFR > 60 BUN/Creatinine Ratio 14 Glucose 112 H Calculated Osmolality 280 Lactic Acid 0.9 Calcium 8.4 Corrected Calcium 8.8 Total Bilirubin 0.5 AST 20 ALT < 7 L Alkaline Phosphatase 53 Total Protein 6.7 Albumin 3.5 D Globulin 3.2 Albumin/Globulin Ratio 1.1 L Quality Measures Quality Measures none Assessment & Plan Assessment Current Active Medications: Generic Name Dose Route Start Last Admin Trade Name Freq PRN Reason Stop Dose Admin Acetaminophen 325 mg 03/14/25 10:20 03/14/25 10:26 Acetaminophen 325 Mg Tablet PO 04/13/25 09:40 325 mg Q6HR PRN Administration Pain 1-3, Fever Al Hydrox/Mg Hydrox/Simethicone 30 ml 03/14/25 12:00 03/15/25 05:15 Mg Hyd/Al Hyd/Viviana (Maalox Reg) Susp 30 Ml Udc PO 04/13/25 11:59 30 ml QID RUDDY Administration Albuterol/Ipratropium 3 ml 03/14/25 19:00 03/15/25 06:22 Albuterol/Ipratropium (Duoneb) Rt Renetta 3 Ml Nebu INH 04/13/25 18:59 3 ml Q6HRRT RUDDY Administration Piperacillin/Tazobactam/Dextrose 3.375 gm in 50 mls @ 12.5 mls/hr 03/14/25 22:00 03/15/25 05:11 Zosyn IV 03/21/25 21:59 12.5 mls/hr Q8HR RUDDY Administration Protocol Doxycycline Hyclate 100 mg/ 100 mls @ 100 mls/hr 03/14/25 21:00 03/14/25 20:40 Sodium Chloride IV 03/21/25 20:59 100 mls/hr BID RUDDY Administration Levothyroxine Sodium 125 mcg/ 175 mcg 03/15/25 06:00 03/15/25 05:14 Levothyroxine Sodium 50 mcg PO 04/14/25 05:59 175 mcg ACBR RUDDY Administration Morphine Sulfate 1 mg 03/14/25 19:10 03/15/25 07:56 Morphine Sulf Inj 10 Mg/Ml Vial IVP 03/19/25 09:42 1 mg Q4HR PRN Administration pain 6-10 Pantoprazole Sodium 40 mg 03/15/25 09:00 Pantoprazole Inj 40 Mg Vial IVP 04/14/25 08:59 QDAY RUDDY Sucralfate 1 gm 03/14/25 21:00 03/15/25 05:14 Sucralfate 1 Gm Tablet PO 04/13/25 20:59 1 gm QID RUDDY Administration Plan Mr. Hodgson is a 59 year old male with past medical history significant for cirrhosis (status post TIPS with stent placement 20 years ago at [place]) secondary to chronic hep C, hypothyroidism, peptic ulcer disease presented to the ED complaining of epigastric abdominal pain. #Intractable abdominal pain #Duodenitis #History of peptic ulcer disease -Patient presented with epigastric pain for a few days with nausea and vomiting -Patient has history of peptic ulcer disease and takes Protonix at home -CT abdomen pelvis shows peptic ulcer disease, Edema involving the stomach and duodenum, Gastritis pattern, perigastric varices Plan: -Pain control with [place] and Morphine PRN -Pantoprazole daily -Peptic ulcer diet -GI specialist Dr. Walters consulted, appreciate recommendations -NPO after midnight, EGD scheduled for tomorrow #Fever, in the setting of #Pancytopenia -WBC 1.7, RBC 4.29, Plt 55, Neurophil # 1200, while in the ED pt had a fever 101.2 -CXR- negative for pneumonia and UA is clean Plan: -Blood cultures are ordered -Pt is started on broad spectrum antibiotics with Zosyn and doxycycline 03/14- #Cirrhosis #Thrombocytopenia #Splenomegaly -Cirrhosis secondary to hepatitis C infection but did complete antiviral therapy over a decade ago, previously managed at [place] with Dr. Saucedo -Signs of synthetic liver dysfunction with platelets 55, anemia -History of TIPS surgery more than 20 years ago (done in the late s) -Previously was evaluated for liver transplant -Splenomegaly evident on imaging Plan: -Monitor daily CBC, liver function tests, and avoid hepatotoxic agents. #History of hypothyroidism -resume home levothyroxine 175 mcg #Hx of insomnia -will resume home trazodone 50 mg after med rec #Hx of Asthma -Duonebs ordered Health Maintenance Disposition: Med- telemetry DVT Prophylaxis: SCD QSHIFT GI Prophylaxis: Pantoprozol-40 IVQday Diet:PUD diet Lines: Peripheral lines Code status: Full Assessment and plan discussed with my senior resident Dr. Sanchez & attending physician Dr. Nghia Magaña (PGY-1)- Internal medicine resident Attending Provider Attestation/Addendum IChana DO, attest that I was physically present for the avendano portions of the service and evaluated the patient with the resident and I reviewed and discussed the case with the resident and agree with the resident's findings and plans of care as documented above Patient seen and evaluated this AM. Patient states that he has had chronic epigastric pain that got worse the past few days, prompting him to come to the hospital. He denies any hematochezia or hematemesis. Patient noted to have a reducible hernia in RUQ. Will increase protonix to 40mg IV BID and plans for EGD in AM. Patient states the pain is worse at night and does not necessarily seem to be postprandial. Patient does endorse using oxycodone at home for pain. CT findings noted, continue with current GI prophylaxis.
[2025-03-15] MEDS: PANTOPRAZOLE INJ 40 MG VIAL IVP ×2 (09:14→20:30)
[2025-03-15] MEDS: DOXYCYCLINE INJ 100 MG in SODIUM CHLORIDE 0.9% (POP) 100 ML IV ×2 (09:14→20:30)
--- NOTE | 2025-03-15 09:29 | PC.SS ---
Patient Lucian Hodgson is a 59 Year old male admitted for Duodinitis. Patient appeared alert and oriented to self, place and situation. Patient reports he lives alone. Patient reports his daughter, Janeen is his surrogate decision maker, [phone]. Patient reports he is independent with ADL's and does not utilize any source of DME to assist with ambulation. Choice of pharmacy is [facility]. PCP is Justin Martin. AT time of dishcarge patient's daughter, Janeen will provide transportation back home. Discharge plan: Home Next of Kin: Janeen Elam., daughter.
[2025-03-15 10:24] LABS: Slide Review Platelets confirmed
--- NOTE | 2025-03-15 11:53 | PC.SS ---
SS follow up note; Pain management. Pending Dr. Walters's consult. Patient will discharge home when medically cleared.
--- NOTE | 2025-03-15 16:01 | PD.IMCONS ---
HPI Data of Consult Requesting Physician: Chana Agrawal DO Primary Care Provider: Khalif Chapa MD Consult Narrative History of present illness: Pt is a 59 year old male with past medical history significant for cirrhosis due to chronic hep C, hypothyroidism, peptic ulcer disease with epigastric abdominal pain, has been having severe abdominal pain for the last few days which has progressively worsened causing him to have nausea vomiting this morning.h/o PUD, CT scan reports PUD nd gastritis. On ppi. still in pain cc:: cc: Chana Agrawal DO Review of Systems Review of Systems Narrative Review of Systems: 12 systems reviewed and negative except positive pertinent ones Meds Home Medications and Allergies Home Medications ?Medication ?Instructions ?Recorded ?Confirmed ?Type albuterol sulfate 90 mcg/actuation 2 puff inhalation Q6H PRN 09/02/22 11/21/24 History aerosol inhaler Shortness Of Breath Or Wheezing gabapentin 400 mg capsule 400 mg PO Q8H 09/02/22 09/02/22 History levothyroxine 150 mcg tablet 175 mcg PO QDAY 09/02/22 11/21/24 History lidocaine 5 % topical patch See Rx Instructions .Route .COMPLEX 09/02/22 09/02/22 History nystatin 100,000 unit/gram topical See Rx Instructions .Route .COMPLEX 09/02/22 09/02/22 History cream tizanidine 4 mg tablet 4 - 8 mg PO QPM 09/02/22 11/21/24 History Allergies Allergy/AdvReac Type Severity Reaction Status Date / Time codeine AdvReac Mild NAUSEA/VOMI Verified 03/14/25 00:19 TING Exam Vital Signs Temp Pulse Resp BP Pulse Ox O2 Del Method 98.3 F 64 18 118/77 100 Room Air 03/15/25 12:00 03/15/25 12:50 03/15/25 12:50 03/15/25 12:00 03/15/25 12:50 03/15/25 12:00 Routine Abdominal Exam Comments: abdominal tenderness Results Labs 03/15/25 04:35 03/15/25 04:35 Labs: Short CBC 03/15/25 Range/Units 04:35 WBC 1.2 L (3.8-10.6) Thou/mm3 Hgb 9.7 L (13.5-16.0) g/dL Hct 30.7 L (41.0-53.0) % Plt Count 52 L (140-440) Thou/mm3 BMP 03/15/25 04:35 Sodium 139 Potassium 4.1 D Chloride 108 H Carbon Dioxide 26.0 BUN 18 Creatinine 1.3 Glucose 112 H Calcium 8.4 Liver Function 03/15/25 Range/Units 04:35 Total Bilirubin 0.5 (0.3-1.2) mg/dL AST 20 (0-34) U/L ALT < 7 L (10-49) U/L Alkaline Phosphatase 53 (46-116) U/L Albumin 3.5 D (3.4-4.8) gm/dL Assessment and Plan Additional Assessment & Plan Additional Plan: 59 year old male with past medical history significant for cirrhosis due to chronic hep C, hypothyroidism, peptic ulcer disease with epigastric abdominal pain h/o PUD, CT scan reports PUD nd gastritis. On ppi. still in pain Miguel PPI NPO at [place] Check H.Pylori Avoid NSAIDs EGD tomorrow Check gastrin Will follow
[2025-03-15] MEDS: HYDROcodone/APAP 5/325 TABLET 1 TAB PO (20:29)
[2025-03-15] MEDS: DiphenhydrAMINE ELIX 25 MG/10 ML UDC 12.5 MG PO (22:23)
[2025-03-16] VITALS (17 sets, daily range): BP systolic 100–144; BP diastolic 64–79; PULSE 61–94; RESP 13–18; TEMP 36.4–36.8; O2SAT 93–100; BMI 24.3
[2025-03-16] MEDS: MORPHINE SULF INJ 10 MG/ML VIAL IVP ×4 (02:56→20:18)
[2025-03-16] MEDS: PIPER/TAZO 3.375 GM PREMIX 3.375 GM/50 ML BAG IV ×2 (05:21→16:13)
[2025-03-16 06:03] LABS: Basophils % (Auto) 1 % (0-2.5); Eosinophils # (Auto) 0.1 Thou/mm3 (0.0-0.5); Eosinophils % (Auto) 5 % (0-10); Hematocrit 29.7 % (41.0-53.0); Hemoglobin 9.3 g/dL (13.5-16.0); Immature Granulocytes % (Auto) 1 % (0-0); Immature Granulocytes Auto 0.01 Thou/mm3 (0.00-0.00); Lymphocytes # (Auto) 0.4 Thou/mm3 (1.0-4.8); Lymphocytes % (Auto) 32 % (10-50); Mean Corpuscular HGB Conc 31.3 g/dl (31.0-37.0); Mean Corpuscular Hemoglobin 26.3 pg (25.0-35.0); Mean Corpuscular Volume 84 fL (80-100); Monocytes # (Auto) 0.1 Thou/mm3 (0.0-0.8); Monocytes % (Auto) 10 % (0-12); Neutrophils # (Auto) 0.7 Thou/mm3 (1.8-7.7); Neutrophils % (Auto) 52 % (37-80); Nucleated Red Blood Cell % 0 /100 WBC (0); RDW Standard Deviation 48.4 fL (35.1-43.9); Red Blood Count 3.54 Miln/mm3 (4.50-5.90)
[2025-03-16 06:05] LABS: Platelet Count 47 Thou/mm3 (140-440)
[2025-03-16 06:06] LABS: Slide Review Platelets confirmed; White Blood Count 1.4 Thou/mm3 (3.8-10.6)
[2025-03-16 06:30] LABS: Alanine Aminotransferase < 7 U/L (10-49); Albumin, Serum 3.4 gm/dL (3.4-4.8); Alkaline Phosphatase 48 U/L (46-116); Anion Gap 6 (7-16); Aspartate Amino Transferase 19 U/L (0-34); BUN/Creatinine Ratio 15 Ratio (12-20); Bilirubin,Total 0.6 mg/dL (0.3-1.2); Blood Urea Nitrogen 16 mg/dL (9-23); Calcium 8.2 mg/dL (8.3-10.6); Calcium (Corrected) 8.7 mg/dL (8.5-10.1); Carbon Dioxide 28.4 mMol/L (20.0-31.0); Chloride 110 mMol/L (98-107); Creatinine (Component) 1.1 mg/dL (0.6-1.3); Estimated Creatinine Clearance 70.5 mL/min (>60); Globulin 3.3 gm/dL (2.3-3.5); Glucose 105 mg/dL (74-106); Osmolality,Calculated 288 (275-295); Potassium 4.8 mMol/L (3.4-5.1); Sodium 144 mMol/L (136-145); Total Protein 6.7 gm/dL (5.7-8.2); eGFR > 60 See Note
[2025-03-16] MEDS: ALBUTEROL/IPRATROPIUM (Duoneb) RT SOL 3 ML NEBU INH ×2 (06:55→13:02)
[2025-03-16] MEDS: DOXYCYCLINE INJ 100 MG in SODIUM CHLORIDE 0.9% (POP) 100 ML IV ×2 (08:09→20:32)
[2025-03-16] MEDS: PANTOPRAZOLE INJ 40 MG VIAL IVP ×2 (08:09→20:32)
[2025-03-16] MEDS: RINGERS LACTATED 1000 ML 1,000 ML 125 ML IV (13:35)
--- NOTE | 2025-03-16 13:44 | ESPR_ITS ---
<Statement entered by Mumtaz Sanchez MD - 03/17/25 07:53> Senior Resident Attestation: I supervised/discussed management plan with internet cafe manager physician Dr. Magaña, and was involved in the care of this patient. I personally saw and examined the patient and discussed the assessment and plan with the entire medicine team, including my attending. I agree with the assessment and plan as documented. Patient underwent EGD today and will be discharged tomorrow with GI recommendations follow-up appointment. Patient's care was discussed with attending physician, Dr. Agrawal. Mumtaz Sanchez MD PGY-2. Documentation for date of: 03/16/25 Subjective Subjective Interval history: No acute overnight events reported. Patient seen and examined at bedside this morning. Patient states that he still has significant epigastric pain however it is slight improvement from yesterday currently patient is saturating on room air and labs are within normal limits, blood cultures are negative. Patient is scheduled to undergo endoscopy with Dr. Walters today. Patient has no other complaints. Exam Vital Signs Temp Pulse Resp BP Pulse Ox O2 Del Method 98 F 66 17 118/79 100 Room Air 03/16/25 11:40 03/16/25 13:03 03/16/25 13:03 03/16/25 11:40 03/16/25 13:03 03/16/25 11:40 Narrative Exam GENERAL: A&Ox3 . Awake, Not in acute distress NEURO: no focal neurological deficits HEENT: Atraumatic, Normocephalic. mucous membranes moist. Eyes open, symmetrical, & clear HEART: Normal Heart Sounds LUNGS: Clear to auscultation with no wheezing or crackles. ABDOMEN: soft, non-distended, non-tender, bowel sounds heard, no guarding or rebound tenderness SKIN: No Rash or ecchymoses EXTREMITIES: No edema, tenderness, able to move all 4 extremities, pedal pulses palpated Objective Labs 03/17/25 04:27 03/17/25 04:27 Labs: Laboratory Results - last 24 hr 03/16/25 04:41 WBC 1.4 L RBC 3.54 L Hgb 9.3 L Hct 29.7 L MCV 84 MCH 26.3 MCHC 31.3 RDW Std Deviation 48.4 H Plt Count 47 L Neut % (Auto) 52 Lymph % (Auto) 32 [place] % (Auto) 10 Eos % (Auto) 5 Baso % (Auto) 1 Neut # (Auto) 0.7 L Lymph # (Auto) 0.4 L [place] # (Auto) 0.1 Eos # (Auto) 0.1 Baso # (Auto) 0.0 Immature Gran # (Auto) 0.01 H Absolute Nucleated RBC 0.00 Immature Gran % 1 H Nucleated RBC % 0 Sodium 144 Potassium 4.8 D Chloride 110 H Carbon Dioxide 28.4 Anion Gap 6 L BUN 16 Creatinine 1.1 Estim Creat Clear Calc 70.5 eGFR > 60 BUN/Creatinine Ratio 15 Glucose 105 Calculated Osmolality 288 Calcium 8.2 L Corrected Calcium 8.7 Total Bilirubin 0.6 AST 19 ALT < 7 L Alkaline Phosphatase 48 Total Protein 6.7 Albumin 3.4 Globulin 3.3 Albumin/Globulin Ratio 1.0 L Misc Test Result Platelets confirmed Quality Measures Quality Measures none Assessment & Plan Assessment Current Active Medications: Generic Name Dose Route Start Last Admin Trade Name Freq PRN Reason Stop Dose Admin Acetaminophen 325 mg 03/15/25 08:49 Acetaminophen 325 Mg Tablet PO 04/13/25 10:19 Q8H PRN Pain 1-3, Fever>101 Hydrocodone Bitart/Acetaminophen 1 tab 03/15/25 08:48 03/15/25 20:29 Hydrocodone/Apap 5/325 Tablet PO 03/20/25 08:47 1 tab Q6HR PRN Administration PAIN 4-6 Al Hydrox/Mg Hydrox/Simethicone 30 ml 03/14/25 12:00 03/16/25 05:16 Mg Hyd/Al Hyd/Viviana (Maalox Reg) Susp 30 Ml Udc PO 04/13/25 11:59 Not Given QID RUDDY Albuterol/Ipratropium 3 ml 03/14/25 19:00 03/16/25 13:02 Albuterol/Ipratropium (Duoneb) Rt Renetta 3 Ml Nebu INH 04/13/25 18:59 3 ml Q6HRRT RUDDY Administration Piperacillin/Tazobactam/Dextrose 3.375 gm in 50 mls @ 12.5 mls/hr 03/14/25 22:00 03/16/25 05:21 Zosyn IV 03/21/25 21:59 12.5 mls/hr Q8HR RUDDY Administration Protocol Doxycycline Hyclate 100 mg/ 100 mls @ 100 mls/hr 03/14/25 21:00 03/16/25 08:09 Sodium Chloride IV 03/21/25 20:59 100 mls/hr BID RUDDY Administration Lactated Ringer's 1,000 mls @ 125 mls/hr 03/16/25 13:18 03/16/25 13:35 Lactated Ringers IV 03/16/25 21:17 125 mls/hr .Q8H ONE Administration Levothyroxine Sodium 125 mcg/ 175 mcg 03/15/25 06:00 03/16/25 05:15 Levothyroxine Sodium 50 mcg PO 04/14/25 05:59 Not Given ACBR RUDDY Morphine Sulfate 1 mg 03/15/25 08:49 03/16/25 08:08 Morphine Sulf Inj 10 Mg/Ml Vial IVP 03/19/25 09:42 1 mg Q4HR PRN Administration pain 7-10 Pantoprazole Sodium 40 mg 03/15/25 21:00 03/16/25 08:09 Pantoprazole Inj 40 Mg Vial IVP 04/14/25 20:59 40 mg BID RUDDY Administration Sucralfate 1 gm 03/15/25 17:00 03/16/25 07:38 Sucralfate 1 Gm Tablet PO 04/13/25 20:59 Not Given ACHS RUDDY Plan Mr. Hodgson is a 59 year old male with past medical history significant for cirrhosis (status post TIPS with stent placement 20 years ago at [place]) secondary to chronic hep C, hypothyroidism, peptic ulcer disease presented to the ED complaining of epigastric abdominal pain. #Intractable abdominal pain #Duodenitis #History of peptic ulcer disease -Patient presented with epigastric pain for a few days with nausea and vomiting -Patient has history of peptic ulcer disease and takes Protonix at home -CT abdomen pelvis shows peptic ulcer disease, Edema involving the stomach and duodenum, Gastritis pattern, perigastric varices Plan: -Pain control with [place] and Morphine PRN -Pantoprazole BID -Peptic ulcer diet -GI specialist Dr. Walters consulted, appreciate recommendations - EGD scheduled for 03/16 #Fever, in the setting of #Pancytopenia -WBC 1.7, RBC 4.29, Plt 55, Neurophil # 1200, while in the ED pt had a fever 101.2 -CXR- negative for pneumonia and UA is clean Plan: -Blood cultures have no growth -Pt is started on broad spectrum antibiotics with Zosyn and doxycycline 03/14- #Cirrhosis #Thrombocytopenia #Splenomegaly -Cirrhosis secondary to hepatitis C infection but did complete antiviral therapy over a decade ago, previously managed at [place] with Dr. Saucedo -Signs of synthetic liver dysfunction with platelets 55, anemia -History of TIPS surgery more than 20 years ago (done in the late ) -Previously was evaluated for liver transplant -Splenomegaly evident on imaging Plan: -Monitor daily CBC, liver function tests, and avoid hepatotoxic agents. #History of hypothyroidism -resume home levothyroxine 175 mcg #Hx of insomnia -will resume home trazodone 50 mg after med rec #Hx of Asthma -Duonebs ordered Health Maintenance Disposition: Med- telemetry DVT Prophylaxis: SCD QSHIFT GI Prophylaxis: Pantoprozol-40 IV BID Diet:PUD diet Lines: Peripheral lines Code status: Full Assessment and plan discussed with my senior resident Dr. Sanchez & attending physician Dr. Nghia Magaña (PGY-1)- Internal medicine resident Attending Provider Attestation/Addendum Chana Gross, DO, attest that I was physically present for the avendano portions of the service and evaluated the patient with the resident and I reviewed and discussed the case with the resident and agree with the resident's findings and plans of care as documented above Patient seen and evaluated this AM. He reports some improvement of his pain. Pending EGD. No acute events overnight otherwise. Will f/u with EGD results
--- NOTE | 2025-03-16 14:01 | SUR.PHASEI ---
1409 Patient arrived to recovery resting in [facility], on oxygen 5L via nasal cannula, breathing unlabored, vital signs stable, denies pain and nausea, report received from Bonita GOYAL and Dr. Teran
[2025-03-16 15:43] LABS: Prealbumin 13.5 mg/dL (10.0-40.0)
[2025-03-16] MEDS: MG HYD/AL HYD/SIME (Maalox Reg) SUSP 30 ML UDC PO ×2 (16:12→20:32)
[2025-03-16] MEDS: SUCRALFATE 1 GM TABLET PO ×2 (16:13→20:32)
[2025-03-16 16:20] LABS: Path Review Blood Smear Sent to Pathologist
[2025-03-16] MEDS: HYDROcodone/APAP 5/325 TABLET 1 TAB PO ×2 (17:37→23:11)
[2025-03-17] VITALS (11 sets, daily range): BP systolic 112–122; BP diastolic 78–85; PULSE 63–95; RESP 12–20; TEMP 36.2–36.9; O2SAT 91–97
[2025-03-17] MEDS: PIPER/TAZO 3.375 GM PREMIX 3.375 GM/50 ML BAG IV ×2 (00:24→05:13)
[2025-03-17] MEDS: MELATONIN 3 MG TABLET 6 MG PO (00:24)
[2025-03-17] MEDS: MORPHINE SULF INJ 10 MG/ML VIAL IVP ×4 (00:33→13:13)
[2025-03-17] MEDS: MG HYD/AL HYD/SIME (Maalox Reg) SUSP 30 ML UDC PO ×2 (05:13→11:51)
[2025-03-17] MEDS: LEVOTHYROXINE SODIUM 125 MCG, LEVOTHYROXINE SODIUM 50 MCG 175 MCG PO (05:13)
[2025-03-17 05:34] LABS: Basophils % (Auto) 1 % (0-2.5); Eosinophils # (Auto) 0.1 Thou/mm3 (0.0-0.5); Eosinophils % (Auto) 7 % (0-10); Hematocrit 31.9 % (41.0-53.0); Hemoglobin 10.3 g/dL (13.5-16.0); Immature Granulocytes % (Auto) 0 % (0-0); Lymphocytes # (Auto) 0.5 Thou/mm3 (1.0-4.8); Lymphocytes % (Auto) 25 % (10-50); Mean Corpuscular HGB Conc 32.3 g/dl (31.0-37.0); Mean Corpuscular Hemoglobin 26.1 pg (25.0-35.0); Mean Corpuscular Volume 81 fL (80-100); Monocytes # (Auto) 0.2 Thou/mm3 (0.0-0.8); Monocytes % (Auto) 10 % (0-12); Neutrophils # (Auto) 1.2 Thou/mm3 (1.8-7.7); Neutrophils % (Auto) 58 % (37-80); Nucleated Red Blood Cell % 0 /100 WBC (0); RDW Standard Deviation 47.6 fL (35.1-43.9); Red Blood Count 3.94 Miln/mm3 (4.50-5.90)
[2025-03-17 05:37] LABS: Platelet Count 56 Thou/mm3 (140-440)
[2025-03-17 05:51] LABS: Slide Review Platelets confirmed
[2025-03-17 06:12] LABS: Alanine Aminotransferase < 7 U/L (10-49); Albumin, Serum 3.8 gm/dL (3.4-4.8); Albumin/Globulin Ratio 1.1 (1.2-2.2); Alkaline Phosphatase 54 U/L (46-116); Anion Gap 5 (7-16); Aspartate Amino Transferase 18 U/L (0-34); BUN/Creatinine Ratio 13 Ratio (12-20); Bilirubin,Total 0.9 mg/dL (0.3-1.2); Blood Urea Nitrogen 14 mg/dL (9-23); Calcium 8.9 mg/dL (8.3-10.6); Calcium (Corrected) 9.1 mg/dL (8.5-10.1); Carbon Dioxide 27.8 mMol/L (20.0-31.0); Chloride 108 mMol/L (98-107); Creatinine (Component) 1.1 mg/dL (0.6-1.3); Estimated Creatinine Clearance 68.2 mL/min (>60); Globulin 3.4 gm/dL (2.3-3.5); Glucose 115 mg/dL (74-106); Osmolality,Calculated 282 (275-295); Potassium 4.9 mMol/L (3.4-5.1); Sodium 141 mMol/L (136-145); Total Protein 7.2 gm/dL (5.7-8.2); eGFR > 60 See Note
[2025-03-17] MEDS: SUCRALFATE 1 GM TABLET PO ×2 (08:32→10:58)
[2025-03-17] MEDS: PANTOPRAZOLE INJ 40 MG VIAL IVP (08:33)
[2025-03-17] MEDS: DOXYCYCLINE INJ 100 MG in SODIUM CHLORIDE 0.9% (POP) 100 ML IV (08:34)
[2025-03-17] MEDS: HYDROcodone/APAP 5/325 TABLET 1 TAB PO (11:12)
--- NOTE | 2025-03-17 12:15 | PC.SS ---
SS follow up note; Patient will discharge back home today.
[2025-03-17] MEDS: ALBUTEROL/IPRATROPIUM (Duoneb) RT SOL 3 ML NEBU INH (13:35)
--- NOTE | 2025-03-17 14:27 | ESDS_ITS ---
<Statement entered by Chana Agrawal DO - 03/18/25 08:00> I, Chana Agrawal DO, attest that I was physically present for the avendano portions of the service and evaluated the patient with the resident and I reviewed and discussed the case with the resident and agree with the resident's findings and plans of care as documented above Planned Discharge Date 03/17/25 DS: Providers Provider Date of admission: 03/14/25 08:55 Primary care physician: Khalif Chapa MD Admitting Provider: Haley Joe MD Attending Provider on Admission: Chana Agrawal DO Consults: 03/14/25 07:34 Referral - Animal Keeper Stat Service Needed for Transfer: Gastroenterology Addl Comments:: Intractable pain, Cirrhosis, Duodenitis(inflamed Duodenum on CT,unknown etiology) has been seen at [facility] per Patient 03/15/25 15:00 Consult to Gastroenterology Routine Comment: Consulting Provider: Brando Gautam 03/16/25 14:40 Referral Registered Dietitian Urgent Comment: patient has stricture, referral placed after EGD Attending Provider on DC: Ag Magaña MD Discharging Provider: Ag Magaña MD DS: Diagnosis Problem List Completed Was Problem List Reviewed/Reconciled?: Yes Hospital Course Hospital Course Hospital course: Mr. Hodgson is a 59 year old male with past medical history significant for cirrhosis (status post TIPS with stent placement 20 years ago at [facility]) secondary to chronic hep C, hypothyroidism, peptic ulcer disease presented to [facility] ED on 03/14/2025 complaining of epigastric abdominal pain that was not resolving with oral pain medications at home. Patient was given IV pain meds to control his pain and GI specialist was consulted. Patient underwent endoscopy on 03/16/2025 and findings were consistent with diffuse severe inflammation in the stomach and diffuse severe mucosal changes in the first part of duodenum. Per GI recommendations patient is to follow-up with GI specialist Dr. Romeo mandel within 2 weeks after discharge to review pathology results. Patient is also advised to avoid aspirin, ibuprofen, naproxen or other nonsteroidal anti-inflammatory drugs. H. pylori stool antigen is also ordered patient is given a kit to collect stool and drop off to [facility] labs. Patient is hemodynamically stable, saturating on room air has remained afebrile for more than 48 hours, endorses to significant improvement of his abdominal pain and has only required oral medications for pain control. Patient is ready to be discharged home to self- care. Discharge Recommendations -Follow up with your primary care within 1 week after discharge -Follow up with GI specialist Dr. Walters within 2 weeks -Take you medications as prescribed -If your symtoms reocur or worsen, return to the ED Hospitalization Diagnosis #Intractable abdominal pain #Duodenitis #History of peptic ulcer disease #Fever, in the setting of #Pancytopenia #Cirrhosis #Thrombocytopenia #Splenomegaly #History of hypothyroidism #Hx of insomnia #Hx of Asthma Assessment and plan discussed with my attending physician Dr. Laura Magaña (PGY-1)- Internal medicine resident Time Spent with Patient Time attestation: Total time spent providing and/or coordinating discharge services: Time spent: Greater than 30 minutes Exam Vital Signs Temp Pulse Resp BP Pulse Ox O2 Del Method O2 Flow Rate 98.3 F 66 18 120/85 H 97 Room Air 3 03/17/25 11:55 03/17/25 13:35 03/17/25 13:35 03/17/25 11:55 03/17/25 13:35 03/17/25 11:55 03/16/25 14:16 Narrative Exam GENERAL: A&Ox3 . Awake, Not in acute distress NEURO: no focal neurological deficits HEENT: Atraumatic, Normocephalic. mucous membranes moist. Eyes open, symmetrical, & clear HEART: Normal Heart Sounds LUNGS: Clear to auscultation with no wheezing or crackles. ABDOMEN: soft, non-distended, non-tender, bowel sounds heard, no guarding or rebound tenderness SKIN: No Rash or ecchymoses EXTREMITIES: No edema, tenderness, able to move all 4 extremities, pedal pulses palpated Discharge Plan Plan Patient Disposition: HOME (Self Care) Disposition Comment: Hospitalist admit Dr. Walters to consult Patient condition on transfer: Stable Care Plan Goals: -Follow up with your primary care within 1 week after discharge -Follow up with GI specialist Dr. Walters within 2 weeks -Take you medications as prescribed -Patient is also advised to avoid aspirin, ibuprofen, naproxen or other nonsteroidal anti-inflammatory drugs. -If your symtoms reocur or worsen, return to the ED Prescriptions/Referrals Prescriptions/Med Rec: New hydrocodone-acetaminophen 5-325 mg Tablet 1 tab PO Q6HR MDD 4 pills PRN (Reason: PAIN 4-10) 3 Days Qty: 12 0RF pantoprazole 40 mg tablet,delayed release (DR/EC) 40 mg PO BID Qty: 60 0RF Continued tizanidine 4 mg tablet 4 - 8 mg PO QPM Patient Comments: TAKE 1 TO 2 TABLETS BY MOUTH EVERY EVENING AT BED TIME gabapentin 400 mg capsule 400 mg PO Q8H Patient Comments: TAKE ONE CAPSULE BY MOUTH EVERY 8 HOURS nystatin 100,000 unit/gram cream See Rx Instructions .ROUTE .COMPLEX Patient Comments: APPLY topically THREE TIMES DAILY Rx Instructions: APPLY TOPICALLY THREE TIMES A DAY lidocaine 5 % adhesive patch,medicated See Rx Instructions .ROUTE .COMPLEX Patient Comments: APPLY ONE PATCH FOR 12 hours AND 12 hours off Rx Instructions: APPLY 1 PATCH FOR 12 HOURS AND 12 HOURS OFF levothyroxine 150 mcg tablet 175 mcg PO QDAY Patient Comments: TAKE ONE TABLET BY MOUTH EVERY DAY IN THE MORNING FOR THYROID albuterol sulfate 90 mcg/actuation HFA aerosol inhaler 2 puff INHALATION Q6H PRN (Reason: Shortness Of Breath Or Wheezing) Patient Comments: INHALE TWO PUFFS BY MOUTH EVERY 6 HOURS NEEDED naloxone [Narcan] 4 mg/actuation spray,non-aerosol 4 mg intranasal Q3M PRN (Reason: opioid overdose) Qty: 2 0RF Rx Instructions: spray 1 dose into ONE nostril; alternate nostrils w each dose Referrals: Khalif Chapa MD [Primary Care Provider] - Brando Gautam MD [Physician] - Patient/Caregiver Discharge Instructions Education Materials: Abdominal Pain, Duodenitis Print Language: Upper Sorbian Stand Alone Forms: Kelley Award Info., Patient Portal Info Letter Discharge Order Discharge Orders: Discharge (Routine); Ordered 03/17/25 Ordered By: Ag Magaña Quality Discharge Quality Measures none
[2025-03-19 23:37] LABS: HCV RNA, PCR <15 NOT DETECTED IU/mL
[2025-03-20 08:19] LABS: HCV RNA, PCR Log IU <1.18 NOT DETECTED Log IU/mL
== END 2025-03-17 14:34 | disposition home or self-care (01) | DRG 241 ==
LOC: SERX 03-14 08:14 → SERHOLD 03-14 09:16 → S3NX 03-14 16:13 → S3SX 03-16 18:44
PROVIDERS: Internal Medicine Gastroenterology; Physician Assistant; Admitting Provider Student in an Organized Health Care Education/Training Program; Emergency Provider Emergency Medicine; PCP Internal Medicine Nephrology; Visit Provider Internal Medicine
PROC: 0DB98ZX Excision of Duodenum, Via Natural or Artificial Opening Endoscopic, Diagnostic (ICD-10-PCS; CPT 43239; principal; 2025-03-16 16:15)
DX: K29.80 Duodenitis without bleeding (principal); K74.60 Unspecified cirrhosis of liver; E03.9 Hypothyroidism, unspecified; Z87.891 Personal history of nicotine dependence; Z87.11 Personal history of peptic ulcer disease; D61.818 Other pancytopenia; R16.1 Splenomegaly, not elsewhere classified; J45.909 Unspecified asthma, uncomplicated; G47.00 Insomnia, unspecified; B18.2 Chronic viral hepatitis C
CPT/HCPCS: 36415; 71045; 74177; 80053; 81001; 83605; 83690; 84134; 84484; 85025; 87040; 87081; 87205; 87338; 87522; 93005; 93225; 94640; 94664; 96361; 96374; 96375; 96376; 99285; A4649; A9270; J2270; J2405; J2470; J2543; J3490; J7030; J7040; J7120; Q9967

== ENCOUNTER 2025-04-24 04:29 | Emergency (ER) | payer MEDICAID, SELFPAY ==
[2025-04-24 04:29] VITALS: BMI 23.0
[2025-04-24 04:40] VITALS: BP 121/81; PULSE 77; RESP 20; TEMP 36.8; O2SAT 100
--- NOTE | 2025-04-24 04:43 | PD.EDABDPN ---
ED Abdominal Pain RME/HPI General Chief Complaint: Abdominal Pain Stated complaint: UPPER ABDOMINAL PAIN Time seen by provider: 04/24/25 04:43 Arrival date/time: 04/24/25 04:29 RME / HPI RME / HPI narrative: This section includes all my notes and documentations, including HPI, PE, and ED course. Johan Rich MD HPI: 60-year-old male here with a few hour history of severe upper abdominal pain. PMH remarkable for idiopathic cirrhosis (S/P TIPS) and cholecystectomy and COPD. Severe nausea. Consider due to bleeding ulcers in the past. No diarrhea. No other complaints. ROS: All negative except as documented in HPI. Physical Exam: General: Alert and oriented. In severe pain. Eyes: Conjunctivae and lids clear. ENT: No nasal congestion. Neck: Supple. Heart: RRR. Lungs: No respiratory distress. Severely decreased air movement with rhonchi. Abdomen: Soft with severe tenderness diffusely. Normal bowel sounds. No distension. No rebound or guarding. Back: No CVA tenderness. Skin: Warm and dry. Neuro: Alert and oriented X 3. I ordered IV fluid, Zofran, Dilaudid, and diagnostic tests. At 6 AM 04/24/2025, the care of the patient was transferred to Dr. Samaniego. Johan Rich MD Related Data Home Medications ?Medication ?Instructions ?Recorded ?Confirmed albuterol sulfate 90 mcg/actuation 2 puff inhalation Q6H PRN 09/02/22 11/21/24 aerosol inhaler Shortness Of Breath Or Wheezing gabapentin 400 mg capsule 400 mg PO Q8H 09/02/22 09/02/22 levothyroxine 150 mcg tablet 175 mcg PO QDAY 09/02/22 11/21/24 lidocaine 5 % topical patch See Rx Instructions .Route .COMPLEX 09/02/22 09/02/22 nystatin 100,000 unit/gram topical See Rx Instructions .Route .COMPLEX 09/02/22 09/02/22 cream tizanidine 4 mg tablet 4 - 8 mg PO QPM 09/02/22 11/21/24 Previous Rx's ?Medication ?Instructions ?Recorded naloxone 4 mg/actuation nasal 4 mg intranasal Q3M PRN opioid 09/15/22 spray (Narcan) overdose #2 ea pantoprazole 40 mg tablet,delayed 40 mg PO BID #60 tabs 03/17/25 release Allergies Allergy/AdvReac Type Severity Reaction Status Date / Time codeine AdvReac Mild NAUSEA/VOMI Verified 03/14/25 00:19 TING Course Quality Measures none Vital Signs Vital signs: Vital Signs Temperature 98.2 F 04/24/25 04:40 Pulse Rate 77 04/24/25 04:40 Respiratory Rate 20 04/24/25 04:40 Blood Pressure 121/81 04/24/25 04:40 Pulse Oximetry (%) 100 04/24/25 04:40 Oxygen Delivery Method Room Air 04/24/25 04:40 Abdominal Pain MDM Patient data External records reviewed:: [facility] previous records Clinical information provided by:: patient Social determinants that could affect healthcare access:: none Patient has the following chronic illnesses:: Idiopathic cirrhosis, cholecystectomy, COPD How is presenting disease/condition affected by chronic disease/condition?: exacerbated by Evaluation data The following diagnostics were reviewed and interpreted by me:: other (specify) (Diagnostic test results pending) Lab and/or radiology exams considered but not ordered:: None Interpretation Summary: Diagnostic test results pending Medications / Prescriptions Medications or Prescriptions considered but not ordered:: None Medication administrations:: I ordered IV fluid and Zofran and Dilaudid Consultations Consultation(s) initiated? (list below): No Diagnosis Differential diagnosis abdominal pain: acute appendicitis, calculus of kidney, constipation, diverticulitis, pancreatitis and small bowel obstruction Most likely diagnosis given after review of the tests above:: Diagnostic test results are pending. Admission Indicated Admission indicated?: not indicated Explain why admission is indicated or not indicated:: Diagnostic test results are pending. Admission Request Was there a request for admission?: No Disposition Plan Disposition Plan: other (specify) (At 6 AM 04/24/2025, the care of the patient was transferred to Dr. Samaniego. ) Discharge Plan Prescriptions/Referrals Prescriptions/Med Rec: No Action tizanidine 4 mg tablet 4 - 8 mg PO QPM Patient Comments: TAKE 1 TO 2 TABLETS BY MOUTH EVERY EVENING AT BED TIME gabapentin 400 mg capsule 400 mg PO Q8H Patient Comments: TAKE ONE CAPSULE BY MOUTH EVERY 8 HOURS nystatin 100,000 unit/gram cream See Rx Instructions .ROUTE .COMPLEX Patient Comments: APPLY topically THREE TIMES DAILY Rx Instructions: APPLY TOPICALLY THREE TIMES A DAY lidocaine 5 % adhesive patch,medicated See Rx Instructions .ROUTE .COMPLEX Patient Comments: APPLY ONE PATCH FOR 12 hours AND 12 hours off Rx Instructions: APPLY 1 PATCH FOR 12 HOURS AND 12 HOURS OFF levothyroxine 150 mcg tablet 175 mcg PO QDAY Patient Comments: TAKE ONE TABLET BY MOUTH EVERY DAY IN THE MORNING FOR THYROID albuterol sulfate 90 mcg/actuation HFA aerosol inhaler 2 puff INHALATION Q6H PRN (Reason: Shortness Of Breath Or Wheezing) Patient Comments: INHALE TWO PUFFS BY MOUTH EVERY 6 HOURS NEEDED naloxone [Narcan] 4 mg/actuation spray,non-aerosol 4 mg intranasal Q3M PRN (Reason: opioid overdose) Qty: 2 0RF Rx Instructions: spray 1 dose into ONE nostril; alternate nostrils w each dose pantoprazole 40 mg tablet,delayed release (DR/EC) 40 mg PO BID Qty: 60 0RF Problem List Clinical Impression: Abdominal pain Patient/Caregiver Discharge Instructions Print Language: Anguillan
--- NOTE | 2025-04-24 04:50 | XR_ITS ---
Examination: CT chest with intravenous contrast CT abdomen with intravenous contrast CT pelvis with intravenous contrast 2-D coronal and sagittal reconstructions Time of exam: April 24, 2025 0840 hours INDICATIONS: Decreased breath sounds on auscultation today with upper abdominal pain and shortness of breath CTDI: vol (mGy) : 7.23 DLP: (mGycm): 501 Technique: Multiple axial images of the chest, abdomen and pelvis with intravenous contrast, 3.0 mm slice thickness. Images obtained post intravenous injection Isovue 370 60 cc. 2-D sagittal and coronal reconstructions. Low dose protocols were performed. One or more of the following dose reduction techniques were used; automated exposure control, adjustment of the mA and/or KV according to patient size, use of iterative reconstruction technique. Findings: No thoracic aortic aneurysm dilatation No pulmonary artery filling defects on this non-CTA study History calcification left anterior descending coronary artery 26 mm bleb in the left upper lobe Mild scarring in the right upper lobe No pneumonia or pulmonary edema Cirrhosis Portacaval shunt Marked splenomegaly Gastric wall mucosal thickening Portosystemic collateral vessels medial to the spleen Perigastric varices No pancreatic mass Mild ascites Mild renal parenchymal scar formation No bowel obstruction Aorta normal size Appendix is fluid-filled and thickened, measuring up to 8 mm, axial image 231 but without definite periappendiceal inflammatory change No diverticulitis Transverse prostate dimension 5 cm Urinary bladder intact Small fat-containing inguinal hernia Prominent osteopenia Grade 1 spondylolisthesis L5 on S1 Moderate narrowing hip joints IMPRESSION: No pneumonia or pulmonary edema Cirrhosis Portacaval shunt Mild ascites Marked splenomegaly Gastritis pattern Perigastric varices Appendix is fluid-filled and thickened measuring up to 8 mm but without definite periappendiceal inflammatory change, the appearance should be clinically correlated
--- NOTE | 2025-04-24 04:50 | XR_ITS ---
Examination: Abdomen sonogram, Limited Date and time of exam: April 24, 2025 0500 hours INDICATIONS: Epigastric pain beginning today Technique: Real-time davis scale transabdominal sonographic images of the upper abdomen obtained. Findings: Absent gallbladder Normal common bile duct 0.4 cm The pancreatic head 3.5 cm Liver 13.6 cm fatty infiltration lobular contour No focal liver lesions Normal hepatopedal portal venous flow Patent IVC IMPRESSION: Absent gallbladder Mildly prominent pancreatic head, clinical correlation advised Fatty liver primary hepatocellular disease
[2025-04-24] MEDS: ALBUTEROL/IPRATROPIUM (Duoneb) RT SOL 3 ML NEBU INH (05:17)
[2025-04-24 05:19] VITALS: PULSE 91; RESP 21; O2SAT 99
[2025-04-24] MEDS: SODIUM CHLORIDE 0.9% 1000 ML 1,000 ML 999 ML IV (05:31)
[2025-04-24] MEDS: HYDROmorphone INJ 2 MG/ML VIAL IVP (05:32)
[2025-04-24] MEDS: ONDANSETRON INJ 2 MG/ML INJ 2 ML 4 MG IVP ×2 (05:35→14:05)
[2025-04-24] MEDS: MethylPREDNISolone SOD SUCC 62.5 MG/ML 2ML VIAL 125 MG IVP (05:36)
[2025-04-24 06:00] VITALS: BP 108/71; PULSE 78; RESP 15; O2SAT 91
--- NOTE | 2025-04-24 06:02 | PRELIM_ITS ---
Gallbladder ultrasound with Doppler and wave Doppler spectral analysis. April 24, 2025 at 0500 hours Clinical history: Right upper quadrant tenderness. Comparison: No prior study is available for comparison. Findings: The liver demonstrates increased echogenicity. Status postcholecystectomy. The common duct is normal in caliber at 0.4 cm. No free fluid is demonstrated on the submitted images. The portal vein is patent with hepatopetal flow and normal wave Doppler spectral analysis. The hepatic veins are patent with normal wave Doppler spectral analysis. The inferior vena cava is patent with normal wave Doppler spectral analysis. Impression: Liver steatosis. Report Electronically Signed By: Wisam Mireles 04/24/2025 6:02:25 AM [EST]
[2025-04-24 06:24] LABS: Basophils % (Auto) 1 % (0-2.5); Eosinophils # (Auto) 0.1 Thou/mm3 (0.0-0.5); Eosinophils % (Auto) 5 % (0-10); Hematocrit 31.4 % (41.0-53.0); Hemoglobin 10.3 g/dL (13.5-16.0); Immature Granulocytes % (Auto) 1 % (0-0); Immature Granulocytes Auto 0.01 Thou/mm3 (0.00-0.00); Lymphocytes # (Auto) 0.4 Thou/mm3 (1.0-4.8); Lymphocytes % (Auto) 22 % (10-50); Mean Corpuscular HGB Conc 32.8 g/dl (31.0-37.0); Mean Corpuscular Hemoglobin 27.7 pg (25.0-35.0); Mean Corpuscular Volume 84 fL (80-100); Monocytes # (Auto) 0.2 Thou/mm3 (0.0-0.8); Monocytes % (Auto) 8 % (0-12); Neutrophils # (Auto) 1.2 Thou/mm3 (1.8-7.7); Neutrophils % (Auto) 64 % (37-80); Nucleated Red Blood Cell % 0 /100 WBC (0); Red Blood Count 3.72 Miln/mm3 (4.50-5.90)
--- NOTE | 2025-04-24 06:32 | PD.EDADDENDU ---
Emergency Room Addendum Addendum Narrative: 0600: Care assumed from Dr. Rich, the previous shift emergency physician. Past medical, surgical, social and family history reviewed. Vitals and home medications reviewed. I will assume the care of the patient at this time, pending remainder of diagnostic tests and final disposition. Please refer to the emergency department record for history and examination from initial visit.? Physical exam by me shows patient under no acute distress at this time. 1028: Discussed test HPI, PMHx, lab, radiology results and/or management with Dr. Regan. Will come evaluate the patient at bedside. 1340: Discussed test HPI, PMHx, lab, radiology results and/or management with Dr. Harmon. Nothing to do now, patient has an appointment with her liver specialist at [place]. 1400: Discussed test HPI, PMHx, lab, radiology results and/or management with Dr. Regan. She also looked at the thickening of the appendix but nothing surgical at this time. 1405: Patient remains clinically stable throughout the emergency department visit. Re-assessment at the time of disposition demonstrates that the patient is in no acute distress. We reviewed all the results, analysis, and treatment plans. Patient is amenable to discharge. Strict return precautions were outlined. Patient was discharged in stable condition. Diagnoses: -Chronic abdominal pain -Thickening of the appendix -Gastritis CRITICAL CARE: TIME: 90 minutes. The high probability of sudden, clinically significant deterioration in the patient?s condition required the highest level of my preparedness to intervene urgently. The services I provided to this patient were to treat and/or prevent clinically significant deterioration. Services included the following: chart data review, reviewing nursing notes and/or old charts, documentation time, inside solar sales consultant collaboration regarding findings and treatment options, medication orders and management, direct patient care, vital sign assessments and ordering, interpreting and reviewing diagnostic studies and lab tests. Aggregate critical care time includes only time during which I was engaged in work directly related to the patient?s care, as described above, whether at bedside or elsewhere in the Emergency Department. It did not include time spent performing other reported procedures or the services of residents, students, nurses or physician assistants. Results Objective Laboratory: Laboratory Last Values WBC 1.9 Thou/mm3 (3.8-10.6) L 04/24/25 05:50 RBC 3.72 Miln/mm3 (4.50-5.90) L 04/24/25 05:50 Hgb 10.3 g/dL (13.5-16.0) L 04/24/25 05:50 Hct 31.4 % (41.0-53.0) L 04/24/25 05:50 MCV 84 fL (80-100) 04/24/25 05:50 MCH 27.7 pg (25.0-35.0) 04/24/25 05:50 MCHC 32.8 g/dl (31.0-37.0) 04/24/25 05:50 RDW Std Deviation 56.0 fL (35.1-43.9) H 04/24/25 05:50 Plt Count 58 Thou/mm3 (140-440) L 04/24/25 05:50 Neut % (Auto) 64 % (37-80) 04/24/25 05:50 Lymph % (Auto) 22 % (10-50) 04/24/25 05:50 [place] % (Auto) 8 % (0-12) 04/24/25 05:50 Eos % (Auto) 5 % (0-10) 04/24/25 05:50 Baso % (Auto) 1 % (0-2.5) 04/24/25 05:50 Neut # (Auto) 1.2 Thou/mm3 (1.8-7.7) L 04/24/25 05:50 Lymph # (Auto) 0.4 Thou/mm3 (1.0-4.8) L 04/24/25 05:50 [place] # (Auto) 0.2 Thou/mm3 (0.0-0.8) 04/24/25 05:50 Eos # (Auto) 0.1 Thou/mm3 (0.0-0.5) 04/24/25 05:50 Baso # (Auto) 0.0 Thou/mm3 (0.0-0.2) 04/24/25 05:50 Immature Gran # (Auto) 0.01 Thou/mm3 (0.00-0.00) H 04/24/25 05:50 Absolute Nucleated RBC 0.00 Thou/mm3 (0.00-0.00) 04/24/25 05:50 Immature Gran % 1 % (0-0) H 04/24/25 05:50 Nucleated RBC % 0 /100 WBC (0) 04/24/25 05:50 Sodium 145 mMol/L (136-145) 04/24/25 05:50 Potassium 3.6 mMol/L (3.4-5.1) 04/24/25 05:50 Chloride 110 mMol/L (98-107) H 04/24/25 05:50 Carbon Dioxide 27.8 mMol/L (20.0-31.0) 04/24/25 05:50 Anion Gap 7 (7-16) 04/24/25 05:50 BUN 18 mg/dL (9-23) 04/24/25 05:50 Creatinine 1.0 mg/dL (0.6-1.3) 04/24/25 05:50 Estim Creat Clear Calc 83.5 mL/min (>60) 04/24/25 05:50 eGFR > 60 See Note (60-) 04/24/25 05:50 BUN/Creatinine Ratio 18 Ratio (12-20) 04/24/25 05:50 Glucose 135 mg/dL (74-106) H 04/24/25 05:50 Calculated Osmolality 292 (275-295) 04/24/25 05:50 Calcium 8.4 mg/dL (8.3-10.6) 04/24/25 05:50 Corrected Calcium 8.4 mg/dL (8.5-10.1) L 04/24/25 05:50 Magnesium 1.8 mg/dL (1.6-2.6) 04/24/25 05:50 Total Bilirubin 0.6 mg/dL (0.3-1.2) 04/24/25 05:50 Direct Bilirubin 0.2 mg/dL (0.0-0.3) 04/24/25 05:50 AST 19 U/L (0-34) 04/24/25 05:50 ALT 7 U/L (10-49) L 04/24/25 05:50 Alkaline Phosphatase 64 U/L (46-116) 04/24/25 05:50 Total Protein 7.1 gm/dL (5.7-8.2) 04/24/25 05:50 Albumin 4.1 gm/dL (3.4-4.8) 04/24/25 05:50 Globulin 3.0 gm/dL (2.3-3.5) 04/24/25 05:50 Albumin/Globulin Ratio 1.4 (1.2-2.2) 04/24/25 05:50 Amylase 140 U/L (30-118) H 04/24/25 05:50 Lipase 52 U/L (12-53) 04/24/25 05:50 Ethyl Alcohol < 3.0 mg/dL (0-10.0) 04/24/25 05:50 Misc Test Result Platelets confirmed 04/24/25 05:50 Imaging: Procedure(s): CT chest abdomen pelvis w Accession Number(s): [id number] cc: Justin Martin MD; Johan Rich MD; Arturo Shoemaker MD~ Examination: CT chest with intravenous contrast CT abdomen with intravenous contrast CT pelvis with intravenous contrast 2-D coronal and sagittal reconstructions Time of exam: April 24, 2025 0840 hours INDICATIONS: Decreased breath sounds on auscultation today with upper abdominal pain and shortness of breath CTDI: vol (mGy) : 7.23 DLP: (mGycm): 501 Technique: Multiple axial images of the chest, abdomen and pelvis with intravenous contrast, 3.0 mm slice thickness. Images obtained post intravenous injection Isovue 370 60 cc. 2-D sagittal and coronal reconstructions. Low dose protocols were performed. One or more of the following dose reduction techniques were used; automated exposure control, adjustment of the mA and/or KV according to patient size, use of iterative reconstruction technique. Findings: No thoracic aortic aneurysm dilatation No pulmonary artery filling defects on this non-CTA study History calcification left anterior descending coronary artery 26 mm bleb in the left upper lobe Mild scarring in the right upper lobe No pneumonia or pulmonary edema Cirrhosis Portacaval shunt Marked splenomegaly Gastric wall mucosal thickening Portosystemic collateral vessels medial to the spleen Perigastric varices No pancreatic mass Mild ascites Mild renal parenchymal scar formation No bowel obstruction Aorta normal size Appendix is fluid-filled and thickened, measuring up to 8 mm, axial image 231 but without definite periappendiceal inflammatory change No diverticulitis Transverse prostate dimension 5 cm Urinary bladder intact Small fat-containing inguinal hernia Prominent osteopenia Grade 1 spondylolisthesis L5 on S1 Moderate narrowing hip joints IMPRESSION: No pneumonia or pulmonary edema Cirrhosis Portacaval shunt Mild ascites Marked splenomegaly Gastritis pattern Perigastric varices Appendix is fluid-filled and thickened measuring up to 8 mm but without definite periappendiceal inflammatory change, the appearance should be clinically correlated Dictated By: Arturo Shoemaker MD Procedure(s): US gall bladder Accession Number(s): [id number] cc: Justin Martin MD; Johan Rich MD; Arturo Shoemaker MD~ Examination: Abdomen sonogram, Limited Date and time of exam: April 24, 2025 0500 hours INDICATIONS: Epigastric pain beginning today Technique: Real-time davis scale transabdominal sonographic images of the upper abdomen obtained. Findings: Absent gallbladder Normal common bile duct 0.4 cm The pancreatic head 3.5 cm Liver 13.6 cm fatty infiltration lobular contour No focal liver lesions Normal hepatopedal portal venous flow Patent IVC IMPRESSION: Absent gallbladder Mildly prominent pancreatic head, clinical correlation advised Fatty liver primary hepatocellular disease Dictated By: Arturo Shoemaker MD
[2025-04-24 06:47] LABS: Platelet Count 58 Thou/mm3 (140-440); Slide Review Platelets confirmed; White Blood Count 1.9 Thou/mm3 (3.8-10.6)
[2025-04-24 07:13] LABS: Alanine Aminotransferase 7 U/L (10-49); Albumin, Serum 4.1 gm/dL (3.4-4.8); Albumin/Globulin Ratio 1.4 (1.2-2.2); Alcohol, Blood Medical < 3.0 mg/dL (0-10.0); Alkaline Phosphatase 64 U/L (46-116); Amylase 140 U/L (30-118); Anion Gap 7 (7-16); Aspartate Amino Transferase 19 U/L (0-34); BUN/Creatinine Ratio 18 Ratio (12-20); Bilirubin,Direct 0.2 mg/dL (0.0-0.3); Bilirubin,Total 0.6 mg/dL (0.3-1.2); Blood Urea Nitrogen 18 mg/dL (9-23); Calcium 8.4 mg/dL (8.3-10.6); Calcium (Corrected) 8.4 mg/dL (8.5-10.1); Carbon Dioxide 27.8 mMol/L (20.0-31.0); Chloride 110 mMol/L (98-107); Estimated Creatinine Clearance 83.5 mL/min (>60); Glucose 135 mg/dL (74-106); Lipase 52 U/L (12-53); Magnesium 1.8 mg/dL (1.6-2.6); Osmolality,Calculated 292 (275-295); Potassium 3.6 mMol/L (3.4-5.1); Sodium 145 mMol/L (136-145); Total Protein 7.1 gm/dL (5.7-8.2); eGFR > 60 See Note
[2025-04-24 09:35] VITALS: BP 112/78; PULSE 65; RESP 18; TEMP 36.7; O2SAT 97
[2025-04-24 10:12] LABS: Collection Type, Urine Clean Catch
[2025-04-24 10:38] LABS: Bilirubin,Urine Negative (Negative); Blood,Urine Negative (Negative); Clarity,Urine Clear (Clear/Hazy); Color,Urine Yellow (Lt Yel-Yel); Culture Indicated,Urine Not Indicated; Glucose, Urine Negative (Negative); Ketones,Urine Negative (Negative); Leukocyte Esterase,Urine Negative (Negative); Nitrite,Urine Negative (Negative); Protein,Urine Negative (Neg - Trace); RBC,Urine < 1 /hpf (0-3); Specific Gravity,Urine 1.042 (1.001-1.035); Squamous Epithelial Cell,Urine < 1 /hpf (0-5); Urobilinogen,Urine Negative mg/dL (0.0-1.0); WBC,Urine < 1 /hpf (0-5)
[2025-04-24 10:39] LABS: Amphetamine/Methamp Scrn,U Negative (Negative); Barbiturate Screen,Urine Negative (Negative); Benzodiazepines Screen,Urine Negative (Negative); Benzoylecgonine Screen, Ur Negative (Negative); Fentanyl Screen,Urine Negative (Negative); Opiate Screen,Urine Positive (Negative); THC Screen,Urine Positive (Negative)
[2025-04-24] MEDS: FAMOTIDINE INJ 10 MG/ML VIAL 2 ML 20 MG IVP (11:25)
[2025-04-24 12:04] VITALS: BP 113/67; PULSE 60; RESP 13; TEMP 36.3; O2SAT 96
[2025-04-24] MEDS: ONDANSETRON INJ 2 MG/ML INJ 2 ML 4 MG IV (12:33)
[2025-04-24] MEDS: MORPHINE SULF INJ 10 MG/ML VIAL 2 MG IVP (12:33)
[2025-04-24] MEDS: HYDROmorphone INJ 2 MG/ML VIAL 0.5 MG IVP (14:03)
[2025-04-24] MEDS: PANTOPRAZOLE INJ 40 MG VIAL IVP (14:04)
[2025-04-24 14:44] VITALS: BP 115/97; PULSE 72; RESP 18; TEMP 36.4; O2SAT 97
== END 2025-04-24 14:45 | disposition home or self-care (01) ==
PROVIDERS: Emergency Provider Emergency Medicine; PCP Family Medicine
DX: K74.60 Unspecified cirrhosis of liver (principal); K76.0 Fatty (change of) liver, not elsewhere classified; K76.9 Liver disease, unspecified; R18.8 Other ascites; R16.1 Splenomegaly, not elsewhere classified; I86.4 Gastric varices; K38.8 Other specified diseases of appendix
CPT/HCPCS: 36415; 71260; 74177; 76705; 80053; 80307; 80320; 81001; 82150; 82248; 83690; 83735; 85025; 87400; 87811; 94640; 96361; 96374; 96375; 96376; 99285; A4649; A9270; J1171; J2270; J2405; J2470; J2919; J3490; J7030; Q9967; G0480